=== PATIENT | female | born 1940 | race Caucasian/White ===

== ENCOUNTER 2024-06-21 18:17 | Inpatient (IN) | payer OTHER, SELFPAY ==
[2024-06-21] VITALS (7 sets, daily range): BP systolic 125–182; BP diastolic 43–94; BMI 17.6; BMI 17.1
--- NOTE | 2024-06-21 16:27 | ED.GENMED ---
History of Present Illness
General
Chief Complaint: Wound Check/Suture Removal
Source: patient and family
Exam Limitations: none
Time Seen by Provider: 06/21/24 15:40
Nursing documentation reviewed up to this point in time: agreed with
History of Present Illness
History of Present Illness:
84-year-old female with history as documented presents to the emergency room from her independent living facility; she is accompanied by her daughters, sent in for evaluation of worsening pain in her buttock noted to have significant sacral wound.
Patient reports that she has issues with arthritis in her right hip and is scheduled for a right hip replacement. She says that this is caused significant pain with ambulation and so the for the past few months she has been sitting for most of the
day in the chair. She says that recently she has been having increasing severe pain with sitting down and particularly with lying down; apparently a nurse visited and noted that she had significant sacral wound with drainage and foul odor and she
was referred to the emergency room. In addition to worsening sacral pain she also reports drainage and discharge from the area. She reports generalized fatigue. She denies any fevers or chills. She denies any falls or trauma. She denies any
other complaints.
Review of Systems
Review of Systems
All Other Systems: ROS reviewed and negative except as documented in HPI and ROS
Constitutional: Reports fatigue; Denies fever or chills
Respiratory: Denies trouble breathing
Cardiac: Denies chest pain
ABD/GI: Denies abdominal pain
: Denies flank pain
Skin: Reports other (Draining malodorous sacral wound)
Neurological: Denies headache
Phy Exam
Physical Exam
Physical Exam:
General: Awake, alert, oriented x3; frail appearing
Head: Normocephalic, atraumatic
Eyes: Conjunctiva normal
Throat: Airway intact
Neck: Trachea midline
Lungs: Clear to auscultation bilaterally, no wheezing, rales, rhonchi
Heart: Regular rate and rhythm, no murmurs, gallops, or rubs
Abd: Soft, non distended, nontender
Skin: Patient has stage IV sacral decubitus ulcer with foul odor and scant drainage
Extremities: Bilateral lower extremity edema; extremities warm and well-perfused
Scores
Heart Failure Risk
Heart Failure Risk Score: Not Applicable
Heart Score for Chest Pain Patients
STEMI patient?: Not applicable
Withdrawal Assessment of Alcohol
Withdrawal Assessment Completed?: Not applicable
Course
Orders/Labs/Results
Orders:
Orders
06/21/24 16:16
Complete Blood Count/With Diff Urgent
Comprehensive Metabolic Panel Urgent
Magnesium Urgent
Phos [Phosphorus] Urgent
Blood Culture Routine
SHALONDA Source: Blood/Venous
Specimen Description:
06/21/24 16:17
Lactate Level [Lactic Acid] Urgent
06/21/24 16:26
Wound Culture [Wound/Abscess/Other Culture] Urgent
SHALONDA Source: Sacral
Specimen Description:
06/21/24 16:30
Electrocardiogram (*1) Urgent
Reason for Study: Vertigo / Dizzy
EKG- Treatment ONCE
06/21/24 16:31
CR Sacrum/coccyx Min 2 View Urgent
Comment:
Reason For Exam: sacral wound
06/21/24 17:04
Magnesium Sulfate 4 Gram/100Ml [Magnesium Sulfate] 4 gram in 100 ml IV NOW
Potassium Chloride [KCl] 40 meq 0.9% Sodium Chloride 250 ml [Nss] 250 ml IV NOW
06/21/24 17:15
Cefepime HCl [Maxipime] 1,000 mg IV NOW STA
MetroNIDAZOLE IVPB 500 mg IVPB NOW MetroNIDAZOLE 500 MG/100 ML [Flagyl 500 mg] 100 ml IV NOW
Vancomycin 1000 mg IVPB NOW Vancomycin 1 Gram/200 ml [Vancocin] 1 gram in 200 ml IV NOW
Abnormal Lab Results
06/21/24 06/21/24
16:16 16:17
WBC 13.9 H 10^3/uL
(4.8-10.8)
RBC 3.37 L 10^6/uL
(4.20-5.40)
Hgb 9.6 L g/dL
(12.0-16.0)
Hct 29.1 L %
(37.0-47.0)
RDW 15.2 H %
(11.5-14.5)
Plt Count 673 H 10^3/uL
(130-400)
Abs Immat Gran (auto) 0.1 H 10^3/uL
(0-0.05)
Absolute Neuts (auto) 12.3 H 10^3/uL
(1.4-6.5)
Absolute Lymphs (auto) 0.7 L 10^3/uL
(1.2-3.4)
Absolute Monos (auto) 0.7 H 10^3/uL
(0.1-0.6)
Immature Gran % 0.9 H %
(0-0.5)
Neutrophils % 88.2 H %
(42.2-75.2)
Lymphocytes % 5.2 L %
(20.5-51.1)
Potassium 3.3 L mmol/L
(3.5-5.1)
Chloride 96 L mmol/L
(98-107)
BUN 20 H mg/dl
(7-17)
Glucose 107 H mg/dl
(70-99)
Lactic Acid 3.0 H mmol/L
(0.7-2.0)
Magnesium 1.5 L mg/dl
(1.6-2.3)
06/21/24 16:16
06/21/24 16:16
Vital Signs
Initial and Last Documented VS:
Initial Vital Signs
Pulse Resp BP Pulse Ox
92 18 125/57 97
06/21/24 14:52 06/21/24 14:52 06/21/24 14:52 06/21/24 14:52
Last Documented Vital Signs
Temp Pulse Resp BP Pulse Ox
36.6 C 68 17 177/43 97
06/21/24 14:55 06/21/24 16:45 06/21/24 16:45 06/21/24 16:12 06/21/24 16:14
MDM/Problems Addressed
Differential Diagnosis Includes:
Sacral wound infection, osteomyelitis
MDM/Problems Addressed:
84-year-old female presents with worsening sacral pain, malodorous draining sacral wound. Vital signs normal. Exam as above. Will send labs including a CBC and a CMP, blood culture; will send a wound culture. Check x-ray of the sacrum. Pending
initial workup will plan for admission for wound care and antibiotic treatment with concern for infected sacral wound.
Labs reviewed: CBC shows leukocytosis to 13.9, anemia 9.6. Thrombocytosis with a platelet count of 673 possibly acute phase reactant. She has mild hypokalemia and hypomagnesemia which were repleted IV. Lactate was slightly elevated at 3.0 we will
trend pending fluids. Plan to treat with IV antibiotics and admit for infected sacral wound; patient is allergic to penicillin discussed with infectious disease will treat with vancomycin, cefepime, metronidazole start. Wound culture sent off.
Case discussed with hospitalist for admission.
*Pulse Oximetry
Patient hypoxic: no
*Critical Care Note
Total Time (30-74mins, 75-104mins- exclusive of procedures): Not Applicable
Data Reviewed
Source: patient, records and family
Patient Management
Discussion with other providers: Hospitalist (Discussed with hospitalist) and Implant Coordinator (Discussed with infectious disease)
Escalation/DeEscalation of care consider admission/obs:
Admission indicated
ED Attending Note
-
Portions of this chart may have been created with voice recognition software.� Occasional wrong word or��sound alike� substitutions may have occurred due to the inherent limitations of voice recognition software.
Discharge Plan
Departure
Patient Disposition: Admit
Date of Disposition: 06/21/24
Time of Disposition: 17:17
Admit to doctor: Alvaro
Presentation/result/management discussed w/ accepting MD/DO: Hospitalist
Discharge Problem:
Decubitus ulcer, stage 4 with infection
Referrals:
Gala Sharif NP [Family Provider] -
Interventions
Interventions:
*Risk Screen - Suicide Last Done: 06/21/24 14:52
*General Assessment Last Done: 06/21/24 14:52
*Neglect/Abuse Screening Last Done: 06/21/24 14:52
*ED COVID-19 Vaccine History Last Done: 06/21/24 14:52
ED-Skin Assessment Last Done: 06/21/24 16:23
Discharge Date and Time
Print Language: YI
[2024-06-21 16:29] LABS: % Basophils 0.3 % (0-2); % Eosinophils 0.3 % (0-6); % Immature Granulocytes 0.9 % (0-0.5); % Lymphocytes 5.2 % (20.5-51.1); % Monocytes 5.1 % (1.7-9.3); % Neutrophils 88.2 % (42.2-75.2); Absolute Immature Granulocytes 0.1 10^3/uL (0-0.05); Absolute Lymphocytes 0.7 10^3/uL (1.2-3.4); Absolute Monocytes 0.7 10^3/uL (0.1-0.6); Absolute Neutrophils 12.3 10^3/uL (1.4-6.5); Hematocrit 29.1 % (37.0-47.0); Hemoglobin 9.6 g/dL (12.0-16.0); Mean Corpuscular Hgb 28.5 pg (27.0-31.0); Mean Corpuscular Volume 86.4 fL (81.0-99.0); Nucleated Red Blood Cells % 0 %; Red Blood Cell Count 3.37 10^6/uL (4.20-5.40); Red Cell Dist. Width 15.2 % (11.5-14.5); White Blood Cell Count 13.9 10^3/uL (4.8-10.8)
[2024-06-21 16:39] LABS: Platelet Count 673 10^3/uL (130-400)
[2024-06-21 16:58] LABS: ALT (SGPT) 19 U/L (0-35); AST (SGOT) 31 U/L (14-36); Albumin 3.9 g/dl (3.5-5.0); Alkaline Phosphatase 124 U/L (38-126); Blood Urea Nitrogen 20 mg/dl (7-17); Calcium 9.4 mg/dl (8.4-10.2); Carbon Dioxide 29 mmol/L (22-30); Chloride 96 mmol/L (98-107); Estimated Creatinine Clearance 50 ml/min; Glucose 107 mg/dl (70-99); Magnesium 1.5 mg/dl (1.6-2.3); Phosphorus 3.2 mg/dl (2.5-4.5); Potassium 3.3 mmol/L (3.5-5.1); Sodium 135 mmol/L (135-145); Total Bilirubin 0.4 mg/dl (0.2-1.3); Total Protein 6.4 g/dl (6.3-8.2); eGFR > 60.00
--- NOTE | 2024-06-21 17:27 | HPS.HSE ---
Addendum entered and electronically signed by Pavan Santana MD 06/21/24 18:16:
I saw and examined the patient.
The RETAIL SERVICE SPECIALIST or PA's note was reviewed and I agree with the note.
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 Also complaining of lower lumbar back pain for the past few
weeks. Has been having issues with her hip and planning on right hip replacement August. Therefore, has been sitting more than laying down due to hip pain. Patient found to have sacral wound with drainage and foul-smelling odor. Otherwise
associated generalized fatigue. Noted to be hypertensive, pulse 68, respiratory rate 17, 97.8 labs remarkable for white count 13.9, platelets 673, potassium 3.3, lactate 3. Plan�await hip x-rays, ESR, CRP. Electrolyte repletion including
magnesium and potassium, Continue IV fluids, trend lactate. Start vancomycin, cefepime, Flagyl. Follow-up blood cultures. Wound care. Pain control. Add on IV hydralazine for SBP greater than 180, diastolic greater than 110. ID already
consulted.
Original Note:
Family Physician
-
Family Physician: Gala Sharif NP
Chief Complaint
-
Sacral wound
History of Present Illness
84-year-old female with PMH for colon ca presented to us with sacral wound. daughter noticed foul smell last week. she is complaining of tail bone pain for past few weeks. Patient reports that she has issues with arthritis in her right hip and is
scheduled for a right hip replacement in August. She says that this is caused significant pain with ambulation and so the for the past few months she has been sitting for most of the day in the chair. She says that recently she has been having
increasing severe pain with sitting down and laying down. the Nurse from [facility] were called in to check her wound and noted to have significant sacral wound with drainage and foul odor and she was referred to the emergency room. She
reports generalized fatigue. She denies any fevers or chills. She denies any falls. patient denied MONREAL, dizzy or syncopal episode. denied chest pain, sob. denied abdominal pain,n,v,d. denied dysuria or hematuria. she is on Cipro for UTI.
In ER patient received Vanco, cefepime and Flagyl. Admitting for further management
Medical History
Past Medical History
Past Medical History: Reports None and Other
Additional Past Medical History:
Colon cancer
Past Surgical History: Reports Other
Additional Past Surgical History:
Colon resection
Social History
Tobacco: Non-smoker
Alcohol: Occasional
Drug: None
Personal: Single
Living: Alone
Family History
Family History: Not pertinent
Allergies / Home Medications
Allergies reflects when Allergies were last updated in [employer].
Home Medications with original date entered in [employer]
Allergy/Medication List:
Allergies
Allergy/AdvReac Type Severity Reaction Status Date / Time
Penicillins Allergy Rash Verified 06/21/24 14:52
Home Medications
acetaminophen 500 mg tablet (Tylenol Extra Strength) 1,000 mg PO Q6HPRN PRN mild pain 06/21/24
ciprofloxacin HCl 500 mg tablet 500 mg PO BID 06/21/24
loperamide 2 mg capsule 4 mg PO QIDPRN PRN diarrhea 06/21/24
therapeutic multivitamin 1 tab PO DAILY 06/21/24
Review of Systems
-
Constitutional: Reports No Symptoms
EENT: Reports No Symptoms
Respiratory: Reports No Symptoms
Cardiac: Reports No Symptoms
Abdomen/GI: Reports No Symptoms
: Reports No Symptoms
Musculoskeletal: Reports No Symptoms
Skin: Reports Other (sacral wound)
Neurological: Reports No Symptoms
Endocrine: Reports No Symptoms
Hematologic/Lymphatic: Reports No Symptoms
Psych: Reports No Symptoms
Physical Exam
Vital Signs
Vital Signs
Temp Pulse Resp BP Pulse Ox
97.8 F 68 17 177/43 97
06/21/24 14:55 06/21/24 16:45 06/21/24 16:45 06/21/24 16:12 06/21/24 16:14
Physical Exam
General: Well Developed, Well Nourished and No Apparent Distress
HEENT: NormoCephalic, Moist mucous membranes and Atraumatic
Respiratory: Clear
Cardiac: S1/S2 and Regular Rhythm; No Murmur or Rub
GI: Soft, Non Tender, Non Distended and Normal Bowel Sounds; No Organomegaly
Rectal: Deferred by Provider
Musculoskeletal: No Clubbing, No Cyanosis and No Edema
Skin: Rash and Other (sacral wound)
Neuro: AO x 3 and Nonfocal/grossly intact
Psych: Calm
Laboratory Results
-
06/21/24 16:16
06/21/24 16:16
Laboratory Results
Lactic Acid 3.0 mmol/L (0.7-2.0) H 06/21/24 16:17
Total Bilirubin 0.4 mg/dl (0.2-1.3) 06/21/24 16:16
AST 31 U/L (14-36) 06/21/24 16:16
ALT 19 U/L (0-35) 06/21/24 16:16
Alkaline Phosphatase 124 U/L (38-126) 06/21/24 16:16
Data Reviewed
-
Lab Data: Labs Reviewed by me
Impression/Plan
-
# Infected sacral wound
# severe Sepsis as evident by WBC 13.9, lactic 3.0
-Continue to current WBCs, trend lactic
-Continue IV Vanco, cefepime and Flagyl
-Infectious disease consulted
-Tylenol as needed for fever or pain
-Wound care consulted
-X-ray of sacrum/coccyx pending
-Wound culture and blood culture sent from ER
-Tylenol continued
-obtain ESR and CRP
# Anemia likely chronic
-Hemoglobin 9.6
-Continue to monitor
# Hypokalemia/hypomag
-K3.3, magnesium 1.5
-IV mag and IV potassium in ER
#hypertension likely from pain
-hydralazine added for SBp>140
# History of colon cancer
-Status post colon resection
#DVT prophylaxis
-Lovenox
#CODE status
-full code
[2024-06-21] MEDS: MAXIPIME 1000 MG IV (17:42)
[2024-06-21] MEDS: FLAGYL 500 MG 100 IV (17:43)
[2024-06-21] MEDS: VANCOCIN 200 IV (18:03)
--- NOTE | 2024-06-21 19:22 | W.PN.UPDATE ---
Update Note
Progress Note Update
patient is DNR
[2024-06-21] MEDS: LR 1000 IV (20:34)
[2024-06-21] MEDS: APRESOLINE 10 MG IV (20:34)
[2024-06-21] MEDS: TYLENOL 650 MG PO (20:34)
[2024-06-21] MEDS: LOVENOX 40 MG SC (20:35)
--- NOTE | 2024-06-21 20:51 | PHA.VAN.IN ---
Assessment
- Assessment
Renal Function: Unknown baseline
Concomitant Antimicrobials: CEFEPIME
- Previous Dosing Experience
Previous Regimen: NONE
AUC Dosing Plan
- Dosing Variables
Dosing Weight (kg): 54.7
Dosing CrCl (ml/min): 59
Vd coefficient (L/kg): 0.7
- Empiric Dosing
Initial / Loading Dose: 1GM
Maintenance Regimen: 1GM IV Q24H
Estimated AUC (mcg*h/mL): 502
Estimated Peak (mcg*h/mL): 36.2
Estimated Trough (mcg/ml): 10.6
Estimated Half Life (H): 13
Pharmacokinetics Vancomycin I
- -
Patient Age: 84
Patient Sex: Female
Vancomycin Day #: 1
Indication: Skin And Soft Tissue (SACRAL WOUND/SEPSIS)
Requesting Provider: BOBBY
Height / Weight:
Height 5 ft 4 in
Actual Weight 45.132 kg
IBW in k.7
Pertinent Past Medical History: HX COLON CA
- Vital Signs / Lab Results
Temp Pulse Resp BP Pulse Ox
98.1 F 85 18 182/72 99
06/21/24 20:24 06/21/24 20:34 06/21/24 20:24 06/21/24 20:34 06/21/24 20:24
Lab Results - Hematology
06/21/24
16:16
WBC 13.9 H
Lab Results - Chemistry
06/21/24
16:16
BUN 20 H
Creatinine 0.6
Estimated Creat Clear 50
Albumin 3.9
06/21/24
16:17
Lactic Acid 3.0 H
Microbiology Results
06/21/24 17:42 Gram Stain - Preliminary
Sacral
[2024-06-21] MEDS: MAGNESIUM SULFATE 100 IV (21:32)
[2024-06-21] MEDS: KCL 270 MEQ IV (21:35)
--- NOTE | 2024-06-21 22:10 | PTCARENOTE ---
Addendum entered by Evelia Carlson RN 06/21/24 22:15:
Sacral wound is Stage IV not 3
Original Note:
rec'd pt from ER. Walked from stretcher to bed utilizing a rolling walker with assist times 1. Daughter at the bedside. Pt with stage 3 wound to sacrum that pt states is from not being able to move much due to right hip pain. she is supposed to have
hip replacement in august. LR infusing at 80ml/hr. Potassium and Magnesium ordered IV. Pt's daughter updated on all orders. Tylenol given for right hip pain.
[2024-06-21 22:32] LABS: Erythrocyte Sed Rate 59 mm/hour (0-20)
[2024-06-22 00:08] LABS: Lactic Acid 1.4 mmol/L (0.7-2.0)
[2024-06-22] MEDS: TYLENOL 650 MG PO ×4 (02:19→20:27)
[2024-06-22] MEDS: FLAGYL 500 MG 100 IV ×3 (02:19→17:24)
[2024-06-22] MEDS: MAXIPIME 2000 MG IV ×2 (05:46→17:23)
[2024-06-22] MEDS: STERILE WATER FOR INJECTION 10 ML IV ×2 (05:46→17:23)
[2024-06-22] MEDS: VANCOCIN 200 IV (06:14)
[2024-06-22 06:27] LABS: Hematocrit 25.5 % (37.0-47.0); Hemoglobin 8.4 g/dL (12.0-16.0); Mean Corp Hgb Conc. 32.9 g/dL (33.0-37.0); Mean Corpuscular Hgb 28.3 pg (27.0-31.0); Mean Corpuscular Volume 85.9 fL (81.0-99.0); Mean Platelet Volume 8.4 fL (7.4-10.4); Platelet Count 588 10^3/uL (130-400); Red Blood Cell Count 2.97 10^6/uL (4.20-5.40); Red Cell Dist. Width 15.2 % (11.5-14.5); White Blood Cell Count 10.9 10^3/uL (4.8-10.8)
[2024-06-22 06:43] LABS: Blood Urea Nitrogen 16 mg/dl (7-17); Calcium 8.7 mg/dl (8.4-10.2); Carbon Dioxide 30 mmol/L (22-30); Chloride 100 mmol/L (98-107); Estimated Creatinine Clearance 49 ml/min; Glucose 82 mg/dl (70-99); Potassium 3.5 mmol/L (3.5-5.1); Sodium 135 mmol/L (135-145); eGFR > 60.00
[2024-06-22 07:00] VITALS: BP 158/64
[2024-06-22] MEDS: LR IV (08:03)
--- NOTE | 2024-06-22 09:13 | WOUNDNOTE ---
COCCYX (probes to bone)
--- NOTE | 2024-06-22 09:13 | WOUNDNOTE ---
COCCYX (probes to bone)
--- NOTE | 2024-06-22 09:27 | WOUNDNOTE ---
[facility] RN note: Patient admitted with infected sacral/coccyx ulcer. Patient lives in independent living at [facility]. She was going to nursing office for her wound care.
See H&P for complete history.
PMH: colon ca with radiation to pelvic bone, R hip replacement planned 08/2024.
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 Skin scarred, red diffusely around wound with some indurated skin mostly on R side of wound.
Appetite: fair. She drinks 1-2 ensure drinks a day (prefers chocolate).
Pressure redistribution devices in place: Air overlay mattress. She turns self in bed and favors lying on her R side.
Plan: Coccyx dressing changed. Heels off bed with pillow. Air chair cushion given. Instructed patient to let her orthopedic surgeon know about her coccyx wound to bone. Instructed patient proper positioning to stay directly off sacrum and hip with
30 degree turn positioning and heel elevation. Suggested she consider hospital bed with air mattress. She stated she may be going to SNF when discharged. Suggested she discuss with CM.
Updated and confirm orders with Dr. Santana including coccyx to bone and that with the history of XRT, wound may not heal.
Care plan to be updated, will update FOSTER Vo. Will follow as needed.
Note to case management of equipment requested for discharge: hospital bed with air mattress recommended as she spends most of the time lying on her side in bed.
Recommend follow up at wound care center upon discharge.
--- NOTE | 2024-06-22 09:30 | WOUNDNOTE ---
[facility] RN note: Patient admitted with infected sacral/coccyx ulcer. Patient lives in independent living at [facility]. She was going to nursing office for her wound care.
See H&P for complete history.
PMH: colon ca with radiation to pelvic bone, R hip replacement planned 08/2024.
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 Skin scarred, red diffusely around wound with some indurated skin mostly on R side of wound.
Appetite: fair. She drinks 1-2 ensure drinks a day (prefers chocolate).
Pressure redistribution devices in place: Air overlay mattress. She turns self in bed and favors lying on her L side.
Plan: Coccyx dressing changed. Heels off bed with pillow. Air chair cushion given. Instructed patient to let her orthopedic surgeon know about her coccyx wound to bone. Instructed patient proper positioning to stay directly off sacrum and hip with
30 degree turn positioning and heel elevation. Suggested she consider hospital bed with air mattress. She stated she may be going to SNF when discharged. Suggested she discuss with CM.
Updated and confirm orders with Dr. Santana including coccyx to bone and that with the history of XRT, wound may not heal.
Care plan to be updated, will update FOSTER Vo. Will follow as needed.
Note to case management of equipment requested for discharge: hospital bed with air mattress recommended as she spends most of the time lying on her side in bed.
Recommend follow up at wound care center upon discharge.
--- NOTE | 2024-06-22 10:10 | CON.ID ---
Consultation
-
Date/Time Consultation Requested: June 21, 2024 1718
Date/Time Consultation Performed: June 22, 2024 1015
Requesting Provider: Dr. Tuan Sarkar Jr
Performing Provider: Dr. Chyna Marte
Reason for Consultation: Sacral-coccyx wound
Chief Complaint / Past History
Chief Complaint
Coccyx pain with drainage
History of Present Illness
84-year-old female with remote history of colon cancer status post resection and radiation to pelvic bone in 2001 who presented to the ER June 21 due to draining coccyx wound. She states that her tailbone had never been normal since radiation.
However she was doing well until around February when she started having difficulty walking due to osteoarthritis of the right hip. She is actually scheduled for right hip replacement in August. She has been sitting in a mobile frequently. About a
week ago she noted increasing tailbone pain. She did see her physician who prescribed Cipro for presumed UTI. The urine culture resulted as negative. Patient had 2 doses of the Cipro. In the meantime her daughter noted foul-smelling discharge
from the coccyx wound. She was therefore sent to the ER. No fevers or chills. Her white count was 13.9. X-ray shows no osteomyelitis. She was seen by wound care nurse today who noted wound probes deep to to bone. She be going for MRI today.
Past History
Additional Past Medical History:
Colon cancer status post resection and radiation (2001)
Osteoarthritis of right hip
IBS
Allergy History:
Penicillins Allergy (Verified 06/21/24 14:52)
Rash at age 29's
Medications Reviewed: Yes
Current Antibiotics:
Cefepime
Metronidazole
Vancomycin
Social History
Tobacco: Non-Smoker
Alcohol: Occasional
Drug: None
Living: Alone (Independent living facility)
Family History
Family History: Not Pertinent
Review of Systems
Review of Systems
General: Negative Fever, Chills or Change in Appetite
HEENT: Negative Sinus Problems, Headache or Pharyngitis
Cardiovascular: Negative Chest Pain
Respiratory: Negative Dyspnea or Cough
Gasteroenterology: Other; Negative Nausea or Vomiting
Genital / Urological: Negative Dysuria or Flank Pain
Endocrine: Negative Weakness
Neurological: Negative Headache
All systems: All other systems were reviewed and were negative
Vital Signs
Temp Pulse Resp BP Pulse Ox
97.6 F 94 18 158/64 92
06/22/24 07:00 06/22/24 07:00 06/22/24 07:00 06/22/24 07:00 06/22/24 07:00
Physical Exam
Physical Exam
Constitutional: No Acute Distress and Comfortable
Eyes: No Conjunctival Hemorrhage and Sclera Anicteric
Cardiovascular: Regular Rate and S1/S2
Pulmonary: Clear
Gastrointestinal: Soft, Non Tender, Non Distended and Normal Bowel Sounds
Genito-Urinary: Negative CVA Tenderness
Extremities: Negative Edema
Wound: Other (Reviewed today wound photo: coccyx with scarred tissue, + wound opening probes to bone per Wound nurse, + yellowish tissue)
Neurological: AO x 3
Lab / Diagnostic Study Results
06/22/24 05:25
06/22/24 05:25
Abs Immat Gran (auto) 0.1 10^3/uL (0-0.05) H 06/21/24 16:16
Absolute Neuts (auto) 12.3 10^3/uL (1.4-6.5) H 06/21/24 16:16
Absolute Lymphs (auto) 0.7 10^3/uL (1.2-3.4) L 06/21/24 16:16
Absolute Monos (auto) 0.7 10^3/uL (0.1-0.6) H 06/21/24 16:16
Absolute Basos (auto) 0.0 10^3/uL (0-0.2) 06/21/24 16:16
Immature Gran % 0.9 % (0-0.5) H 06/21/24 16:16
Neutrophils % 88.2 % (42.2-75.2) H 06/21/24 16:16
Lymphocytes % 5.2 % (20.5-51.1) L 06/21/24 16:16
Monocytes % 5.1 % (1.7-9.3) 06/21/24 16:16
Eosinophils % 0.3 % (0-6) 06/21/24 16:16
Basophils % 0.3 % (0-2) 06/21/24 16:16
ESR Cancelled 06/21/24 21:45
Lactic Acid Cancelled 06/22/24 04:00
Microbiology Results
Micro:
06/21/24 17:42 Wound Culture - Pending
Sacral Gram Stain - Preliminary
06/21/24 16:16 Blood Culture - Pending
Blood/Venous
06/21/24 Sacrum/coccyx XRAY: On the lateral view, air density adjacent to the inferior tip of the coccyx, suggesting an adjacent wound. No gross evidence for bony destruction. Compression deformity of the L5 vertebral body, age uncertain with no
comparison examination available. Please correlate clinically.
Assessment / Plan
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
# PCN allergy
- MRI coccyx pending
- Wound swab gram stain GPC, GNR; cx pending
- Currently on Vanco/cefepime/metronidazole
- Discussed with patient that 6 weeks of IV abx is beneficial ONLY IF there is plan for wound closure/flap in her case.
Care Review
Plan reviewed with: Nurse (FOSTER Chopra)
--- NOTE | 2024-06-22 11:24 | PHA.VAN.FU ---
Addendum entered and electronically signed by Anna Matos RPH 06/22/24 12:31:
Consult reviewed with instructor adjunct pharmacy technician. Agree with assessment and plan below and utilizing more conservative CrCl estimate for dosing.
Original Note:
Vancomycin Assessment / Plan
- Assessment
Renal Function: Stable
WBC's are: Trending Down
In the past 24 hrs, patient has been: Afebrile
Concomitant Antimicrobials: CEFEPIME, METRONIDAZOLE
- Dosing Plan
Adjust Regimen to: 750mg Q24H Starting 06/23/24 0600
New Regimen Predicts: AUC (442), Peak (29.5), Trough (10.5)
Dosing Comments: IBW for dosing weight; TBW for CrCl
- Monitoring Plan
No level(s) ordered at this time: consider in the next few days
- Follow Up
Pharmacy will continue to follow.
Vancomycin Follow UP
- -
Patient Age: 84
Patient Sex: Female
Vancomycin Day #: 2
Indication: Skin And Soft Tissue
Requesting Provider: S BOBBY
Pertinent Antimicrobial Allergies:
Penicillins - Rash in her 30s
Height / Weight:
Height 5 ft 4 in
Actual Weight 45.132 kg
IBW in k.7
Pertinent Past Medical History: BMI ~17
- Vital Signs / Lab Results
Temp Pulse Resp BP Pulse Ox
97.6 F 94 18 158/64 92
06/22/24 07:00 06/22/24 07:00 06/22/24 07:00 06/22/24 07:00 06/22/24 07:00
Lab Results - Hematology
06/21/24 06/22/24
16:16 05:25
WBC 13.9 H 10.9 H
Lab Results - Chemistry
06/21/24 06/22/24
16:16 05:25
BUN 20 H 16
Creatinine 0.6 0.5 L
Estimated Creat Clear 50 49
Albumin 3.9
06/21/24 06/21/24 06/22/24
16:17 23:50 00:00
Lactic Acid 3.0 H 1.4 Cancelled
06/22/24
04:00
Lactic Acid Cancelled
Microbiology Results
06/21/24 17:42 Gram Stain - Preliminary
Sacral
[2024-06-22 11:25] VITALS: BMI 17.1
[2024-06-22 11:29] VITALS: BP 146/96; O2SAT 97
--- NOTE | 2024-06-22 12:27 | CM ---
Patient seen bedside with daughter, Arlene, initial assessment completed. Patient resides at [facility]. Patient has a rolling walker for ambulation, wheel chair if needed for long distances. Patient denies VN or SNF.
Patient PCP Jolie ALICIA) through [place], pharmacy [facility], confirms prescription coverage. Patient denies food, housing/utility, transportation insecurities. PT to see patient, will watch for SNF recommendations, would like
[facility] ([facility]) if necessary. Wound care recommending hospital bed with air mattress upon discharge. CM will continue to follow for all discharge planning needs.
Plan; watch PT evals for further recommendation, watch for IV antibiotic needs.
--- NOTE | 2024-06-22 14:19 | W.PN.HOSP.TC ---
Today's Communication/Plan
-
MR coccyx
Abx
F/u cultures
Assessment / Plan
Assessment / Plan
Constitutional: No Acute Distress and Comfortable
Eyes: No Conjunctival Hemorrhage and Sclera Anicteric
Cardiovascular: Regular Rate and S1/S2
Pulmonary: Clear
Gastrointestinal: Soft, Non Tender, Non Distended and Normal Bowel Sounds
Genito-Urinary: Negative CVA Tenderness
Extremities: Negative Edema
Wound: Other (Reviewed today wound photo: coccyx with scarred tissue, + wound opening probes to bone per Wound nurse, + yellowish tissue)
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
# severe Sepsis
-Continue IV Vanco, cefepime and Flagyl
-Infectious disease consulted
-Tylenol as needed for fever or pain
-Wound care consulted
-MR Coccyx
- Wound swab gram stain GPC, GNR; cx pending
# Anemia likely chronic
-Continue to monitor
# Hypokalemia/hypomagnesemia
-K3.3, magnesium 1.5
-monitor and replete
#hypertension likely from pain
-hydralazine added for SBp>140
# History of colon cancer
-Status post colon resection
#DVT prophylaxis
-Lovenox
#CODE status
-full code
Total time spent on today's encounter was 50 minutes which included time spent in counseling the patient/family regarding diagnosis and treatment plan as listed above, goals of care, and symptom management. Case was discussed with nursing staff,
specialists, and care coordinators/case management. All labs and imaging personally reviewed by me. Remainder the time spent in detailed review of previous records, lab data, imaging, and other medical provider documentation.
Anticipated Discharge: Within 24 hours
Subjective/Interval History
-
Date of Service: June 22, 2024
Sitting in bed
Objective Data
-
Labs:
Laboratory Results
06/22/24
05:25
WBC 10.9 H
Hgb 8.4 L
Hct 25.5 L
Plt Count 588 H
Sodium 135
Potassium 3.5
Chloride 100
Carbon Dioxide 30
BUN 16
Creatinine 0.5 L
Glucose 82
Calcium 8.7
Vital Signs:
Vital Signs
Temp Pulse Resp BP Pulse Ox
97.6 F 94 18 158/64 92
06/22/24 07:00 06/22/24 07:00 06/22/24 07:00 06/22/24 07:00 06/22/24 07:00
I&O
06/21/24 06/22/24 06/23/24
06:59 06:59 06:59
Intake Total 450 / 450
Balance 450 / 450
Review of Systems
-
History Source: Patient
All other systems: Not reviewed unless documented
Data Reviewed
-
Diagnostic Radiology: Image personally visualized and interpreted and Report Reviewed by me
Labs: Labs Reviewed by me
[2024-06-22 15:00] VITALS: BP 162/54
[2024-06-22] MEDS: LOVENOX 40 MG SC (17:23)
[2024-06-22] MEDS: LIDOCAINE 4% PATCH 1 PATCH TOPICAL (20:25)
[2024-06-22 23:48] VITALS: BP 166/57
[2024-06-23] VITALS (31 sets, daily range): BP systolic 92–183; BP diastolic 43–72
[2024-06-23] MEDS: FLAGYL 500 MG 100 IV ×3 (02:37→18:11)
[2024-06-23] MEDS: APRESOLINE 10 MG IV (03:51)
[2024-06-23] MEDS: LR 1000 IV ×3 (05:03→14:05)
[2024-06-23] MEDS: MAXIPIME 2000 MG IV (05:04)
[2024-06-23] MEDS: TYLENOL 650 MG PO ×3 (05:04→17:09)
[2024-06-23] MEDS: STERILE WATER FOR INJECTION 10 ML IV (05:04)
[2024-06-23] MEDS: VANCOCIN 150 IV (05:31)
[2024-06-23 08:39] LABS: Glucose - Point of Care 138 mg/dl (70-99)
[2024-06-23 09:11] LABS: ALT (SGPT) 16 U/L (0-35); AST (SGOT) 35 U/L (14-36); Alkaline Phosphatase 99 U/L (38-126); Blood Urea Nitrogen 26 mg/dl (7-17); Calcium 8.9 mg/dl (8.4-10.2); Carbon Dioxide 24 mmol/L (22-30); Chloride 99 mmol/L (98-107); Estimated Creatinine Clearance 49 ml/min; Glucose 129 mg/dl (70-99); Lactic Acid 2.8 mmol/L (0.7-2.0); Phosphorus 3.7 mg/dl (2.5-4.5); Potassium 3.7 mmol/L (3.5-5.1); Sodium 132 mmol/L (135-145); Total Bilirubin 0.6 mg/dl (0.2-1.3); Total Protein 5.2 g/dl (6.3-8.2); eGFR > 60.00
[2024-06-23 09:13] LABS: % Basophils 0.2 % (0-2); % Eosinophils 0.2 % (0-6); % Immature Granulocytes 1.1 % (0-0.5); % Lymphocytes 6.2 % (20.5-51.1); % Monocytes 4.2 % (1.7-9.3); % Neutrophils 88.1 % (42.2-75.2); Absolute Basophils 0.1 10^3/uL (0-0.2); Absolute Immature Granulocytes 0.2 10^3/uL (0-0.05); Absolute Lymphocytes 1.3 10^3/uL (1.2-3.4); Absolute Monocytes 0.9 10^3/uL (0.1-0.6); Absolute Neutrophils 17.7 10^3/uL (1.4-6.5); Hematocrit 25.2 % (37.0-47.0); Hemoglobin 8.5 g/dL (12.0-16.0); Mean Corp Hgb Conc. 33.7 g/dL (33.0-37.0); Mean Corpuscular Hgb 28.6 pg (27.0-31.0); Mean Corpuscular Volume 84.8 fL (81.0-99.0); Mean Platelet Volume 8.4 fL (7.4-10.4); Nucleated Red Blood Cells % 0 %; Platelet Count 620 10^3/uL (130-400); Red Blood Cell Count 2.97 10^6/uL (4.20-5.40); Red Cell Dist. Width 15.5 % (11.5-14.5); White Blood Cell Count 20.1 10^3/uL (4.8-10.8)
[2024-06-23 09:17] LABS: INR 1.14; PT 14.4 Sec (11.4-14.6)
[2024-06-23 09:18] LABS: APTT 30.2 Sec (23.4-35.0)
[2024-06-23 09:22] LABS: Troponin I 0.016 ng/ml
--- NOTE | 2024-06-23 10:12 | PTCARENOTE ---
Received patient after rapid response from 4th floor. Patient awake and alert [facility]. Patient oriented to room and plan of care. In no distress when she arrived, complaining of chronic pain on sacral area and right hip. Daughter at
bedside. Reviewing labs and new orders.
--- NOTE | 2024-06-23 10:18 | W.PN.ID1 ---
Addendum entered and electronically signed by Chyna Marte MD 06/23/24 15:28:
Diarrhea resolved. Had formed BM.
Cancelled C. diff order.
Original Note:
Date of Service
Date of Service: June 23, 2024
Today's Communication
Narrow abx's to ceftriaxone/metronidazole.'
Await MRI pelvis.
Check stool for C. diff.
Assessment / Plan
# Acute leukocytosis
# Diarrhea
- Check stool for C. diff
-Follow wbc
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
# PCN allergy
- MRI pelvis pending
-CRP <5.00,
- Wound swab gram stain GPC, GNR; cx Strep species
- Narrow Vanco/cefepime to ceftriaxone (d2 abx). Continue metronidazole (d2)
- Discussed with patient and daughter if +osteo by MRI, 6 weeks of IV abx is beneficial ONLY IF there is plan for wound closure/flap in her case.
- Will need follow-up with Wound Care and Plastics.
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
Colon cancer status post resection and radiation (2001)
Osteoarthritis of right hip, for eventual hip replacement
IBS
Chief Complaint
-: Leukocytosis and Other (sacral wound)
Subjective / Review of Systems
Transferred to IMU this am with near-syncope episode while in bathroom.
Pt felt weak since last night. + diarrhea over night.
Daughter at bedside.
Vital Signs / Physical Exam
Vital Signs
Vital Signs
Temp Pulse Resp BP Pulse Ox
97.9 F 69 24 92/57 95
06/23/24 09:29 06/23/24 08:45 06/23/24 08:45 06/23/24 08:45 06/23/24 08:45
Physical Exam
Constitutional: Comfortable
Eyes: Sclera Anicteric
Cardiovascular: Regular Rate and S1/S2
Pulmonary: Clear
Gastrointestinal: Soft, Non Tender, Non Distended and Normal Bowel Sounds
Genito-Urinary: Negative CVA Tenderness
Extremities: Negative Edema
Neurological: AO x 3
Objective Data
Lab Data
Lab Results
06/23/24 08:44
06/23/24 08:44
ESR Cancelled 06/21/24 21:45
PT 14.4 Sec (11.4-14.6) 06/23/24 08:44
INR 1.14 06/23/24 08:44
APTT 30.2 Sec (23.4-35.0) 06/23/24 08:44
Estimated Creat Clear 49 ml/min 06/23/24 08:44
Lactic Acid 2.8 mmol/L (0.7-2.0) H 06/23/24 08:44
Total Bilirubin 0.6 mg/dl (0.2-1.3) 06/23/24 08:44
AST 35 U/L (14-36) 06/23/24 08:44
ALT 16 U/L (0-35) 06/23/24 08:44
Alkaline Phosphatase 99 U/L (38-126) 06/23/24 08:44
Most recent labs reviewed.
Micro Results:
06/21/24 17:42 Wound Culture - Final
Sacral Streptococcus species
Gram Stain - Final
06/21/24 16:16 Blood Culture - Preliminary
Blood/Venous No Growth in 24 hours- Final report to follow
06/21/24 Sacrum/coccyx XRAY: On the lateral view, air density adjacent to the inferior tip of the coccyx, suggesting an adjacent wound. No gross evidence for bony destruction. Compression deformity of the L5 vertebral body, age uncertain with no
comparison examination available. Please correlate clinically.
[2024-06-23 11:23] LABS: C-Reactive Protein < 5.00 mg/L (0.0-10.00)
[2024-06-23 11:51] LABS: CRP, Highly Sensitive > 15.00 mg/L
--- NOTE | 2024-06-23 11:59 | PTCARENOTE ---
Patient had formed stool, notified hospitalist and stool for cdiff to be discontinued. Discussed PRN order for hydralazine for sbp >140. Verbally order to hold at this time. Lastly the Lactated ringer bolus decreased to 500ml.
[2024-06-23] MEDS: ROCEPHIN 2000 MG IV (13:27)
[2024-06-23] MEDS: STERILE WATER FOR INJECTION 20 ML IV (13:28)
--- NOTE | 2024-06-23 14:03 | PN.CDI ---
CDI
- -
CDI:
Physician Documentation Request
Admit Date: 06/21/24 18:17
Dear Doctor Max
Patient admitted with severe sepsis.
Recent sodium results:
Laboratory Tests
06/22/24 06/23/24
05:25 08:44
Sodium 135 132 L
Could you please provide a diagnosis that supports the above lab abnormality :
Hyponatremia
Abnormal lab value clinically insignificant
Other
Use of terms such as suspected, likely, concern for, or probable (associated with a specific diagnosis that is being evaluated, monitored, or treated as if it exists) are acceptable and can be coded in the inpatient setting, when documented at the
time of discharge.
Thank you,
Jackie Ortiz RN, BSN
CDI Specialist
tiger text
Please use your independent medical judgment in providing your response.
[2024-06-23] MEDS: TORADOL 15 MG IV ×2 (14:05→20:05)
--- NOTE | 2024-06-23 14:06 | PN.CDI ---
CDI
- -
CDI:
Physician Documentation Request
Admit Date: 06/21/24 18:17
Dear Doctor Max,
Please review the following and provide your response in the progress notes.
Clinical Indicators:
Height: 5 ft 4 inches
Weight: 102
BMI: 17.6
If possible, please provide an associated diagnosis related to the abnormal BMI, such as:
BMI < or = to 19
Underweight
Weight Loss
Cachectic
Anorexia
- BMI is not significant
- Other
Use of terms such as suspected, likely, concern for, or probable (associated with a specific diagnosis that is being evaluated, monitored, or treated as if it exists) are acceptable and can be coded in the inpatient setting, when documented at the
time of discharge.
Thank you,
Jackie Ortiz RN, BSN
CDI Specialist
tiger text
Please use your independent medical judgment in providing your response.
[2024-06-23] MEDS: FLUSH (NSS) 1 FLUSH IV ×2 (14:07→14:11)
--- NOTE | 2024-06-23 16:25 | W.PN.HOSP.TC ---
Addendum entered and electronically signed by Pavan Santana MD 06/23/24 16:49:
Underweight
Original Note:
Today's Communication/Plan
-
iv abx, f/u cultures
-monitor wbc, fever curve
ct head, cxr
s/p fluids - monitor BPs
trend trop
pain control
Assessment / Plan
Assessment / Plan
Constitutional: No Acute Distress and Comfortable
Eyes: No Conjunctival Hemorrhage and Sclera Anicteric
Cardiovascular: Regular Rate and S1/S2
Pulmonary: Clear
Gastrointestinal: Soft, Non Tender, Non Distended and Normal Bowel Sounds
Genito-Urinary: Negative CVA Tenderness
Extremities: Negative Edema
Wound: Other (Reviewed today wound photo: coccyx with scarred tissue, + wound opening probes to bone per Wound nurse, + yellowish tissue)
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
# severe Sepsis
-Continue IV Ceft, flagyl
-Infectious disease consulted
-Tylenol as needed for fever or pain
-Wound care consulted
-MR Coccyx - pos for osteo
- Wound swab gram stain GPC, GNR; cx pending
-trend cbc
-not having diarrhea
-Needs f/u with wound/plastics outpatient
#Syncopal episode
-most likely vasovagal with diarrhea
-trop trend
-no chest pain
-cont on tele
-bps responded well with Fluids
-ct head
#Hyponatremia
-mild
-ctm
#Hypoxia
-most likely atelectasis
-cxr
-post syncopal episode- -monitor for pneumonia
-incentive mendez
# Anemia likely chronic
-Continue to monitor
# Hypokalemia/hypomagnesemia
-K3.3, magnesium 1.5
-monitor and replete
#hypertension likely from pain
-hydralazine added for SBp>180
# History of colon cancer
-Status post colon resection
#DVT prophylaxis
-Lovenox
#CODE status
-DNR/DNI
Total time spent on today's encounter was 53 minutes which included time spent in counseling the patient/family regarding diagnosis and treatment plan as listed above, goals of care, and symptom management. Case was discussed with nursing staff,
specialists, and care coordinators/case management. All labs and imaging personally reviewed by me. Remainder the time spent in detailed review of previous records, lab data, imaging, and other medical provider documentation.
Anticipated Discharge: > 48 hours
Subjective/Interval History
-
Date of Service: June 23, 2024
syncopal episode with diarrhea this am - responded well with fluids
Objective Data
-
Labs:
Laboratory Results
06/23/24
08:44
WBC 20.1 H
Hgb 8.5 L
Hct 25.2 L
Plt Count 620 H
PT 14.4
INR 1.14
APTT 30.2
Sodium 132 L
Potassium 3.7
Chloride 99
Carbon Dioxide 24
BUN 26 H
Creatinine 0.6
Glucose 129 H
Calcium 8.9
Total Bilirubin 0.6
AST 35
ALT 16
Alkaline Phosphatase 99
Vital Signs:
Vital Signs
Temp Pulse Resp BP Pulse Ox
98.0 F 80 20 172/58 94
06/23/24 11:25 06/23/24 16:00 06/23/24 16:00 06/23/24 15:56 06/23/24 16:17
I&O
06/22/24 06/23/24 06/24/24
06:59 06:59 06:59
Intake Total 450 / 450 1440 / 1440 720 / 720
Balance 450 / 450 1440 / 1440 720 / 720
Review of Systems
-
History Source: Patient
All other systems: Not reviewed unless documented
Data Reviewed
-
Diagnostic Radiology: Image personally visualized and interpreted and Report Reviewed by me
Labs: Labs Reviewed by me
--- NOTE | 2024-06-23 16:37 | PTCARENOTE ---
Patients pulse ox 90% on room air today. Notified hospitalist. Pulse ox on 1 liter via nasal cannula is 95% at this time. Incentive spirometer performed 1500. Chest xray ordered. IVF discontinued. Right hip pain relieved with Tramadol.
[2024-06-23 17:29] LABS: Troponin I < 0.012 ng/ml
[2024-06-23] MEDS: LOVENOX 40 MG SC (18:10)
[2024-06-23 22:01] LABS: Lactic Acid 1.2 mmol/L (0.7-2.0)
[2024-06-23 22:13] LABS: Troponin I 0.013 ng/ml
[2024-06-24] VITALS (38 sets, daily range): BP systolic 127–189; BP diastolic 47–91
[2024-06-24] MEDS: FLAGYL 500 MG 100 IV ×2 (02:06→08:58)
[2024-06-24 02:39] LABS: Urine Albumin Trace (Neg - Trace); Urine Bilirubin Negative (Negative); Urine Character Slightly Cloudy (Clear); Urine Color Yellow; Urine Glucose Negative (Negative); Urine Ketone Trace (Negative); Urine Leukocyte 1+ (Negative); Urine Nitrite Positive (Negative); Urine Occult Blood Negative (Negative); Urine Urobilinogen Negative (Neg - 1+)
[2024-06-24 02:53] LABS: Urine Amorphous Seen; Urine Mucus Few; Urine Squamous Cell >30 /LPF (Few)
[2024-06-24 02:54] LABS: Urine White Cell 40-50 /HPF (0-5)
[2024-06-24 02:55] LABS: Urine Bacteria Many (Negative)
[2024-06-24 03:49] LABS: Hematocrit 22.4 % (37.0-47.0); Hemoglobin 7.5 g/dL (12.0-16.0); Mean Corp Hgb Conc. 33.5 g/dL (33.0-37.0); Mean Corpuscular Hgb 29.4 pg (27.0-31.0); Mean Corpuscular Volume 87.8 fL (81.0-99.0); Mean Platelet Volume 8.5 fL (7.4-10.4); Platelet Count 465 10^3/uL (130-400); Red Blood Cell Count 2.55 10^6/uL (4.20-5.40); Red Cell Dist. Width 15.5 % (11.5-14.5); White Blood Cell Count 10.7 10^3/uL (4.8-10.8)
[2024-06-24 04:00] LABS: Blood Urea Nitrogen 28 mg/dl (7-17); Calcium 8.3 mg/dl (8.4-10.2); Carbon Dioxide 25 mmol/L (22-30); Chloride 101 mmol/L (98-107); Estimated Creatinine Clearance 42 ml/min; Glucose 81 mg/dl (70-99); Potassium 3.3 mmol/L (3.5-5.1); Sodium 134 mmol/L (135-145); eGFR > 60.00
--- NOTE | 2024-06-24 05:33 | PTCARENOTE ---
Patient agitated with care at times. Retaining urine- only able to urinate 50- 75 at a time. Bladder scanned for 437. Straight cath with 410 dark yellow output. No syncopal episodes this shift.
--- NOTE | 2024-06-24 06:01 | W.PN.UPDATE ---
Update Note
Progress Note Update
RN notified PERENNIAL HOUSE MANAGER Hemoglobin of 7.5, hx of Anemia, no active bleeding, patient asymptomatic, stable VS. will order another H&H at 10Am
--- NOTE | 2024-06-24 06:35 | PTCARENOTE ---
Am hgb 7.5. technical product manager provider made aware and ordered repeat H&H for 1000.
[2024-06-24] MEDS: TORADOL 15 MG IV (08:57)
[2024-06-24] MEDS: TYLENOL 650 MG PO ×3 (09:01→20:28)
--- NOTE | 2024-06-24 10:01 | W.PN.ID1 ---
Date of Service
Date of Service: June 24, 2024
Today's Communication
- c/w ceftriaxone/metronidazole (d3 abx); switched metronidazole to oral - high bioavailability
Assessment / Plan
# Acute leukocytosis
# Diarrhea
- Check stool for C. diff
-Follow wbc
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
# PCN allergy
- MRI pelvis c/w osteomyelitis tip of the sacrum deep to the ulcer
- CRP <5.00,
- Wound swab gram stain GPC, GNR; cx Strep species
- c/w ceftriaxone/metronidazole (d3 abx); switched metronidazole to oral - high bioavailability
- Dr Marte discussed with patient and daughter if 6 weeks of IV abx is beneficial ONLY IF there is plan for wound closure/flap in her case
- Will need follow-up with Wound Care and Plastics.
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
Colon cancer status post resection and radiation (2001)
Osteoarthritis of right hip, for eventual hip replacement
IBS
Chief Complaint
-: Leukocytosis and Other (sacral wound)
Subjective / Review of Systems
afebrile
retaining urine and had straight cath
Vital Signs / Physical Exam
Vital Signs
Vital Signs
Temp Pulse Resp BP Pulse Ox
98.1 F 58 10 157/61 99
06/24/24 06:55 06/24/24 06:30 06/24/24 06:30 06/24/24 06:30 06/24/24 06:30
Physical Exam
Constitutional: No Acute Distress and Chronically Ill
Cardiovascular: Regular Rate and S1/S2; Negative Murmur or Rub
Pulmonary: Clear and Symmetric; Negative Wheezes or Rales
Gastrointestinal: Soft, Non Tender, Non Distended and Normal Bowel Sounds
Skin: Warm and Dry; Negative Rash or Jaundice
Objective Data
Lab Data
Lab Results
06/24/24 03:32
ESR Cancelled 06/21/24 21:45
PT 14.4 Sec (11.4-14.6) 06/23/24 08:44
INR 1.14 06/23/24 08:44
APTT 30.2 Sec (23.4-35.0) 06/23/24 08:44
Estimated Creat Clear 42 ml/min 06/24/24 03:32
Lactic Acid 1.2 mmol/L (0.7-2.0) 06/23/24 21:43
Total Bilirubin 0.6 mg/dl (0.2-1.3) 06/23/24 08:44
AST 35 U/L (14-36) 06/23/24 08:44
ALT 16 U/L (0-35) 06/23/24 08:44
Alkaline Phosphatase 99 U/L (38-126) 06/23/24 08:44
C-Reactive Protein < 5.00 mg/L (0.0-10.00) 06/23/24 08:44
Most recent labs reviewed.
Micro Results:
06/24/24 02:27 Urine Culture - Pending
Urine
06/21/24 16:16 Blood Culture - Preliminary
Blood/Venous No Growth in 48 hours- Final report to follow
06/21/24 17:42 Wound Culture - Final
Sacral Streptococcus species
Gram Stain - Final
06/21/24 Sacrum/coccyx XRAY: On the lateral view, air density adjacent to the inferior tip of the coccyx, suggesting an adjacent wound. No gross evidence for bony destruction. Compression deformity of the L5 vertebral body, age uncertain with no
comparison examination available. Please correlate clinically.
[2024-06-24] MEDS: KCL ELIXIR 40 MEQ PO (10:08)
[2024-06-24 10:57] LABS: Hematocrit 24.5 % (37.0-47.0); Hemoglobin 8.2 g/dL (12.0-16.0)
--- NOTE | 2024-06-24 13:24 | W.PN.HOSP.TC ---
Today's Communication/Plan
-
cont abx
monitor hgb
wean off o2
Assessment / Plan
Assessment / Plan
Constitutional: No Acute Distress and Comfortable
Eyes: No Conjunctival Hemorrhage and Sclera Anicteric
Cardiovascular: Regular Rate and S1/S2
Pulmonary: Clear
Gastrointestinal: Soft, Non Tender, Non Distended and Normal Bowel Sounds
Genito-Urinary: Negative CVA Tenderness
Extremities: Negative Edema
Wound: Other (Reviewed today wound photo: coccyx with scarred tissue, + wound opening probes to bone per Wound nurse, + yellowish tissue)
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
#osteomyelitis
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
# severe Sepsis
-Continue IV Ceft, flagyl (D3) - Will need 6 weeks IV abx
-Infectious disease consulted
-Tylenol as needed for fever or pain
-Wound care consulted
-MR Coccyx - pos for osteo
- Wound swab gram stain GPC, GNR; cx Strep Species
-trend cbc
-not having diarrhea
-Needs f/u with wound/plastics for flap/wond closure outpatient
#Syncopal episode
-most likely vasovagal with diarrhea; also happened with puncture site when blood was taken on admission
�Troponins negative, no chest pain
-cont on tele
-bps responded well with Fluids
-ct head unremarkable for acute findings
-no urinary symptoms
#Hyponatremia
-mild
-ctm
#Hypoxia
-most likely atelectasis +fluid
-wean off o2
-post syncopal episode- -monitor for pneumonia
-incentive mendez
-ECHO with no acute findings
-Stop IVF
# Anemia likely chronic
-Continue to monitor
# Hypokalemia/hypomagnesemia
-K3.3, magnesium 1.5
-monitor and replete
#hypertension likely from pain
-hydralazine added for SBp>180
# History of colon cancer
-Status post colon resection
#DVT prophylaxis
-Lovenox
#CODE status
-DNR/DNI
Anticipated Discharge: 24 - 48 hours
Subjective/Interval History
-
Date of Service: June 24, 2024
no issues overnight
Objective Data
-
Labs:
Laboratory Results
06/24/24 06/24/24
03:32 10:49
WBC 10.7
Hgb 7.5 L 8.2 L
Hct 22.4 L 24.5 L
Plt Count 465 H D
Sodium 134 L
Potassium 3.3 L
Chloride 101
Carbon Dioxide 25
BUN 28 H
Creatinine 0.7
Glucose 81
Calcium 8.3 L
Vital Signs:
Vital Signs
Temp Pulse Resp BP Pulse Ox
98.3 F 74 24 158/67 99
06/24/24 11:05 06/24/24 10:00 06/24/24 10:00 06/24/24 08:30 06/24/24 06:30
I&O
06/23/24 06/24/24 06/25/24
06:59 06:59 06:59
Intake Total 1440 / 1440 1500 / 1500
Output Total 535 / 535
Balance 1440 / 1440 965 / 965
Data Reviewed
-
Diagnostic Radiology: Image personally visualized and interpreted and Report Reviewed by me
Labs: Labs Reviewed by me
[2024-06-24] MEDS: STERILE WATER FOR INJECTION 20 ML IV (13:32)
[2024-06-24] MEDS: ROCEPHIN 2000 MG IV (13:32)
[2024-06-24] MEDS: FLAGYL 500 MG PO ×2 (15:19→23:42)
[2024-06-24] MEDS: LOVENOX 40 MG SC (17:36)
[2024-06-24] MEDS: APRESOLINE 10 MG IV (20:35)
[2024-06-25] VITALS (12 sets, daily range): BP systolic 113–179; BP diastolic 48–106
[2024-06-25] MEDS: TYLENOL 650 MG PO ×4 (03:21→23:59)
[2024-06-25 03:38] LABS: Hematocrit 23.7 % (37.0-47.0); Hemoglobin 7.9 g/dL (12.0-16.0); Mean Corp Hgb Conc. 33.3 g/dL (33.0-37.0); Mean Corpuscular Hgb 29.2 pg (27.0-31.0); Mean Corpuscular Volume 87.5 fL (81.0-99.0); Mean Platelet Volume 8.3 fL (7.4-10.4); Platelet Count 480 10^3/uL (130-400); Red Blood Cell Count 2.71 10^6/uL (4.20-5.40); Red Cell Dist. Width 15.8 % (11.5-14.5); White Blood Cell Count 11.3 10^3/uL (4.8-10.8)
[2024-06-25 04:21] LABS: Blood Urea Nitrogen 28 mg/dl (7-17); Calcium 8.6 mg/dl (8.4-10.2); Carbon Dioxide 24 mmol/L (22-30); Chloride 102 mmol/L (98-107); Estimated Creatinine Clearance 49 ml/min; Glucose 74 mg/dl (70-99); Potassium 3.7 mmol/L (3.5-5.1); Sodium 134 mmol/L (135-145); eGFR > 60.00
[2024-06-25] MEDS: TORADOL 15 MG IV ×2 (05:42→21:18)
--- NOTE | 2024-06-25 06:25 | PTCARENOTE ---
Patient incontinent 3 + stools overnight. Placed on enhanced precautions and cdiff sample sent to lab. PRN tylenol and toradal ineffective per patient and is requesting a lidocaine patch. house calls nurse practitioner provider made aware.
[2024-06-25] MEDS: FLAGYL 500 MG PO ×3 (07:41→23:56)
[2024-06-25] MEDS: LIDOCAINE 4% PATCH 1 PATCH TOPICAL (07:41)
[2024-06-25] MEDS: ROCEPHIN 2000 MG IV (12:24)
[2024-06-25] MEDS: STERILE WATER FOR INJECTION 20 ML IV (12:25)
--- NOTE | 2024-06-25 14:39 | W.PN.HOSP.TC ---
Today's Communication/Plan
-
cont iv abx
f/u id recs
add nifedepine
Assessment / Plan
Assessment / Plan
Constitutional: No Acute Distress and Comfortable
Eyes: No Conjunctival Hemorrhage and Sclera Anicteric
Cardiovascular: Regular Rate and S1/S2
Pulmonary: Clear
Gastrointestinal: Soft, Non Tender, Non Distended and Normal Bowel Sounds
Genito-Urinary: Negative CVA Tenderness
Extremities: Negative Edema
Wound: Other (Reviewed today wound photo: coccyx with scarred tissue, + wound opening probes to bone per Wound nurse, + yellowish tissue)
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
#osteomyelitis
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
# severe Sepsis
-Continue IV Ceft, flagyl (D4) - Will need 6 weeks IV abx
-Infectious disease consulted
-Tylenol as needed for fever or pain
-Wound care consulted
-MR Coccyx - pos for osteo
- Wound swab gram stain GPC, GNR; cx Strep Species
-trend cbc
-not having diarrhea
-Needs f/u with wound/plastics for flap/wound closure outpatient
#Syncopal episode
-most likely vasovagal with diarrhea; also happened with puncture site when blood was taken on admission
�Troponins negative, no chest pain
-cont on tele
-bps responded well with Fluids
-ct head unremarkable for acute findings
-no urinary symptoms
#Hyponatremia
-mild
-ctm
#Hypoxia
-most likely atelectasis +fluid
-wean off o2
-post syncopal episode- -monitor for pneumonia
-incentive mendez
-ECHO with no acute findings
-Stop IVF
# Anemia likely chronic
-Continue to monitor
# Hypokalemia/hypomagnesemia
-K3.3, magnesium 1.5
-monitor and replete
#hypertension likely from pain
-hydralazine added for SBp>180
-bp may be higher due to discomfort
-start nifedipine
# History of colon cancer
-Status post colon resection
#DVT prophylaxis
-Lovenox
#CODE status
-DNR/DNI
Anticipated Discharge: Within 24 hours
Subjective/Interval History
-
Date of Service: June 25, 2024
had some leg pain/twitching - improved with lidocaine
Objective Data
-
Labs:
Laboratory Results
06/25/24
03:29
WBC 11.3 H
Hgb 7.9 L
Hct 23.7 L
Plt Count 480 H
Sodium 134 L
Potassium 3.7
Chloride 102
Carbon Dioxide 24
BUN 28 H
Creatinine 0.5 L
Glucose 74
Calcium 8.6
Vital Signs:
Vital Signs
Temp Pulse Resp BP Pulse Ox
97.9 F 77 16 174/74 98
06/25/24 10:55 06/25/24 12:00 06/25/24 12:00 06/25/24 12:00 06/25/24 08:00
I&O
06/24/24 06/25/24 06/26/24
06:59 06:59 06:59
Intake Total 1500 / 1500
Output Total 535 / 535 53 / 53 75 / 75
Balance 965 / 965 -53 / -53 -75 / -75
Review of Systems
-
History Source: Patient
All other systems: Not reviewed unless documented
Data Reviewed
-
Diagnostic Radiology: Image personally visualized and interpreted and Report Reviewed by me
Labs: Labs Reviewed by me
--- NOTE | 2024-06-25 15:04 | PTOTSP ---
Patient requires new PT orders to resume therapy when appropriate due to transfer to higher level of care.
[2024-06-25] MEDS: PROCARDIA XL (EXTENDED RELEASE) 30 MG PO (16:05)
[2024-06-25] MEDS: LOVENOX 40 MG SC (17:49)
[2024-06-26] VITALS (53 sets, daily range): BP systolic 72–150; BP diastolic 31–63
[2024-06-26] MEDS: TYLENOL 650 MG PO ×3 (04:49→18:33)
[2024-06-26 05:12] LABS: Mean Corp Hgb Conc. 33.3 g/dL (33.0-37.0); Mean Corpuscular Hgb 28.5 pg (27.0-31.0); Mean Corpuscular Volume 85.4 fL (81.0-99.0); Mean Platelet Volume 8.4 fL (7.4-10.4); Platelet Count 539 10^3/uL (130-400); Red Blood Cell Count 2.81 10^6/uL (4.20-5.40); Red Cell Dist. Width 15.7 % (11.5-14.5); White Blood Cell Count 12.5 10^3/uL (4.8-10.8)
[2024-06-26 05:19] LABS: Blood Urea Nitrogen 29 mg/dl (7-17); Calcium 8.7 mg/dl (8.4-10.2); Carbon Dioxide 24 mmol/L (22-30); Chloride 102 mmol/L (98-107); Estimated Creatinine Clearance 49 ml/min; Glucose 92 mg/dl (70-99); Potassium 3.8 mmol/L (3.5-5.1); Sodium 133 mmol/L (135-145); eGFR > 60.00
[2024-06-26] MEDS: FLAGYL 500 MG PO ×3 (08:21→23:41)
[2024-06-26] MEDS: LIDOCAINE 4% PATCH 1 PATCH TOPICAL (08:22)
[2024-06-26] MEDS: PROCARDIA XL (EXTENDED RELEASE) 30 MG PO (08:23)
[2024-06-26] MEDS: TORADOL 15 MG IV ×2 (08:24→23:41)
--- NOTE | 2024-06-26 10:19 | W.PN.HOSP.TC ---
Today's Communication/Plan
-
see plan above
Assessment / Plan
Assessment / Plan
# Presyncope - possible vasovagal in nature . Follow HR and BP with fluid bolus. Hold anti HTN for now
#Syncopal episode during this admission
-most likely vasovagal with diarrhea; also happened with puncture site when blood was taken on admission
�Troponins negative, no chest pain
-cont on tele
-bps responded well with Fluids
-ct head unremarkable for acute findings
-no urinary symptoms
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
#osteomyelitis
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
# severe Sepsis
-Continue IV Ceft, flagyl (D4) - Will need 6 weeks IV abx
-Infectious disease following
-Tylenol as needed for fever or pain
-Wound care following
-MR Coccyx - pos for osteo
- Wound swab gram stain GPC, GNR; cx Strep Species
-trend cbc
-Needs f/u with wound/plastics for flap/wound closure outpatient
#Hyponatremia
-mild
-ctm
#Hypoxia
-most likely atelectasis +fluid
- off o2
-ECHO with no acute findings
# Left pleural efffusion - on cxr . Asymptomatic without SOB. Chest US to eval for tap .
# Anemia likely chronic
-Continue to monitor
- Check iron studies and heme test stool
# Hypokalemia/hypomagnesemia
-K3.3, magnesium 1.5
-monitor and replete
#hypertension likely from pain
-hydralazine added for SBp>180
-bp may be higher due to discomfort
-started on nifedipine on this admission -with vasovagal reactions will switch to ACEI and see .
# History of colon cancer
-Status post colon resection
#DVT prophylaxis
-Lovenox
#CODE status
-DNR/DNI
DW
Total time spent on today's encounter was 52 minutes which included time spent in counseling the patient/family regarding diagnosis and treatment plan as listed above, goals of care, and symptom management. Case was discussed with nursing staff,
specialists, and care coordinators/case management. All labs and imaging personally reviewed by me. Remainder the time spent in detailed review of previous records, lab data, imaging, and other medical provider documentation.
Anticipated Discharge: 24 - 48 hours
Subjective/Interval History
-
Date of Service: June 26, 2024
Walked into the room to find patient sitting in the chair. Daughter was attending to the patient trying to make her comfortable in the chair. Patient was complaining of coccyx pain and she was not able to find a comfortable position. She
apparently had a bowel movement and then started to feel oozy and lightheaded . She felt like passing out. She went into daze but was responsive. Checked BP immediately - it was systolic 77 and HR dipped to high 40s SR. No pauses on monitor.
It happened once like this with BM 2 days ago.
Pt put to bed and is given a fluid bolus with improvement of BP to 105 and HR went up to 60s .
No CP
No N/V
No abdo pain
Objective Data
-
Labs:
Laboratory Results
06/26/24
04:46
WBC 12.5 H
Hgb 8.0 L
Hct 24.0 L
Plt Count 539 H
Sodium 133 L
Potassium 3.8
Chloride 102
Carbon Dioxide 24
BUN 29 H
Creatinine 0.6
Glucose 92
Calcium 8.7
Vital Signs:
Vital Signs
Temp Pulse Resp BP Pulse Ox
97.8 F 73 12 147/54 96
06/26/24 07:10 06/26/24 08:23 06/26/24 08:21 06/26/24 08:23 06/26/24 09:54
I&O
06/25/24 06/26/24 06/27/24
06:59 06:59 06:59
Output Total 53 / 53 150 / 150
Balance -53 / -53 -150 / -150
Review of Systems
-
Unable to obtain full review of systems at this time due to: Other (due to vasovagal reaction)
Physical Exam
-
General: No Apparent Distress
HEENT: Moist Mucous Membranes
Respiratory: Clear to Auscultation (anteriorly)
Cardiac: Regular Rhythm, S1/S2 and Bradycardic
GI: Soft and Nontender
Neuro: AO x 3 and No Motor Deficits; Negative Tremors
Psych: Calm; Negative Confused
Data Reviewed
-
Labs: Labs Reviewed by me
--- NOTE | 2024-06-26 10:28 | PTCARENOTE ---
Patient was sitting in chair and heart rate dropped into the 40s, blood pressure 70/40s. Patient had fecal incontinence during this event. Patient placed back in bed. 250 NSS IV bolus administered. Blood pressure is now 115/48, heart rate 66. Laying
flat in bed.
[2024-06-26 11:25] LABS: Iron 45 ug/dl (37-170)
[2024-06-26 11:34] LABS: Percent Saturation 17 % (20-50); Total Iron Binding Capacity 264 ug/dl (265-497)
[2024-06-26] MEDS: STERILE WATER FOR INJECTION 20 ML IV (12:11)
[2024-06-26] MEDS: NSS 250 IV (12:11)
[2024-06-26] MEDS: ROCEPHIN 2000 MG IV (12:12)
[2024-06-26 14:39] LABS: NT-proBNP 2040 pg/ml
--- NOTE | 2024-06-26 15:03 | CON.GI ---
Addendum entered and electronically signed by Nat Ferrara MD 06/26/24 19:13:
I saw and examined the patient.
The SUPERVISOR PHOTOENGRAVING's note was reviewed and I agree with the note.
84yo presents with hx colon CA with resection, chemo and radiation in 2001. She had last follow up with Dr. Black about 5 years ago and recalls stable colonoscopy. She reports over last few months noted increased sitting and change in sacrum
with knee and hip issue and decreased mobility due for hip replacement in August. She now presents with foul smelling odor from sacral wound prompting admission with concern for osteo with sepsis. Asked to see for drop in hbg from 9.6 on
admission to 7.9 with heme + stools and slight increased BUN 29. Iron studies completed not consistent with iron deficiency with iron 45, TIBC 264, % sat 17 ferritin 60.8. Pt also noted with syncope with episode during admission with vasovagal
with diarrhea with antibiotic use with neg c-diff testing. + occasional NSAID use prior to admission.
-anemia iron studies not c/w iron deficiency
-heme + brown stool
-diarrhea ? abx related
-occasional NSAID use
-syncope during admission - vasovagal with diarrhea
-colon CA with resection and XRT to pelvic bone
-large sacral decub
-osteomyelitis with sepsis/leukocytosis
-thrombocytosis
-hyponatremia
-hypoxia
-left pleural effusion
-decreased mobility to knee and hip pain
plan
Patient denies any overt GI bleeding at present. Heme positive stools. Currently being treated for large sacral decubitus/osteomyelitis. Discussed about endoscopic evaluation for anemia. Patient does not want EGD or colonoscopy during this
admission. She will follow up with her GI Dr. Mayorga after discharge. Will sign off. Please call us back if any question
Original Note:
Consultation
-
Date/Time Consultation Requested: 06/26/24 1115
Date/Time Consultation Performed: 06/26/24 1500
Requesting Provider: Rigo Frederick MD
Performing Provider: CASSIE Mota, Nat Ferrara MD
Reason for Consultation: anemia with heme + stool
Medical History
Chief Complaint / HPI
Chief Complaint: heme + stool
History of Present Illness:
Pt is an 84yo presents with hx colon CA with resection, chemo and radiation in 2001. She had last follow up with Dr. Black about 5 years ago and recalls stable colonoscopy. She reports over last few months noted increased sitting and change in
sacrum with knee and hip issue and decreased mobility due for hip replacement in August. She now presents with foul smelling odor from sacral wound prompting admission with concern for osteo with sepsis. Asked to see for drop in hbg from
9.6 on admission to 7.9 with heme + stools and slight increased BUN 29. Iron studies completed not consistent with iron deficiency with iron 45, TIBC 264, % sat 17 ferritin 60.8. Pt also noted with syncope with episode during admission with
vasovagal with diarrhea with antibiotic use with neg c-diff testing.
Pt denies dysphagia, odynophagia, GERD, nausea, vomiting, abdominal pain, blood or black in stools. Last colonoscopy 5 years ago recalls as stable.
Past Medical History
Past Medical History: Cancer (colon CA with chemo and radiation)
Past Surgical History: Bowel Resection (resection)
Social History
Tobacco: Non-Smoker
Alcohol: Occasional (last few months ago )
Drug: None
Personal:
Living: Alone
Employment: Retired
Family History
Family History: Other ( no family hx colon CA or polyps)
Allergies / Home Medications
Allergy/AdvReac Type Severity Reaction Status Date / Time
Penicillins Allergy Rash in Verified 06/22/24 10:48
her 30's
�Medication �Instructions �Recorded
acetaminophen 500 mg tablet 1,000 mg PO Q6HPRN PRN mild pain 06/21/24
(Tylenol Extra Strength)
ciprofloxacin HCl 500 mg tablet 500 mg PO BID 06/21/24
loperamide 2 mg capsule 4 mg PO QIDPRN PRN diarrhea 06/21/24
therapeutic multivitamin 1 tab PO DAILY 06/21/24
Review of Systems
-
History Source: Patient
Constitutional: Reports Weight Loss and Fatigue
EENT: Reports No Symptoms
Respiratory: Reports No Symptoms
Abdomen/GI: Reports Diarrhea and Other (heme + stool)
: Reports Difficulty Voiding
Musculoskeletal: Reports Joint Pain (hip and knee pain)
Skin: Reports No Symptoms
Neurological: Reports Weakness
Endocrine: Reports No Symptoms
Hematologic/Lymphatic: Reports No Symptoms
Vital Signs
Temp Pulse Resp BP Pulse Ox
97.6 F 82 19 116/50 97
06/26/24 11:10 06/26/24 14:15 06/26/24 14:15 06/26/24 14:15 06/26/24 13:15
Physical Exam
Exam
General: Other (thin elderly female no acute distress )
HEENT: Normocephalic and Anicteric
Respiratory: Clear
Cardiac: Regular Rhythm
GI: Soft, Non Tender and Non Distended
Rectal: Other (brown liquid stool no impaction , some limited exam with but no mass noted )
Musculoskeletal: No Clubbing and No Cyanosis
Skin: Warm and Dry
Neuro: Awake, Alert and AO x 3
Psych: Calm
Results
WBC 12.5 10^3/uL (4.8-10.8) H 06/26/24 04:46
Hgb 8.0 g/dL (12.0-16.0) L 06/26/24 04:46
Hct 24.0 % (37.0-47.0) L 06/26/24 04:46
MCV 85.4 fL (81.0-99.0) 06/26/24 04:46
Plt Count 539 10^3/uL (130-400) H 06/26/24 04:46
Absolute Neuts (auto) 17.7 10^3/uL (1.4-6.5) H 06/23/24 08:44
PT 14.4 Sec (11.4-14.6) 06/23/24 08:44
INR 1.14 06/23/24 08:44
APTT 30.2 Sec (23.4-35.0) 06/23/24 08:44
Sodium 133 mmol/L (135-145) L 06/26/24 04:46
Potassium 3.8 mmol/L (3.5-5.1) 06/26/24 04:46
Chloride 102 mmol/L (98-107) 06/26/24 04:46
Carbon Dioxide 24 mmol/L (22-30) 06/26/24 04:46
BUN 29 mg/dl (7-17) H 06/26/24 04:46
Creatinine 0.6 mg/dL (0.6-1.0) 06/26/24 04:46
Calcium 8.7 mg/dl (8.4-10.2) 06/26/24 04:46
Total Bilirubin 0.6 mg/dl (0.2-1.3) 06/23/24 08:44
AST 35 U/L (14-36) 06/23/24 08:44
ALT 16 U/L (0-35) 06/23/24 08:44
Alkaline Phosphatase 99 U/L (38-126) 06/23/24 08:44
Diagnostic Image Results:
06/23 MR Pelvis W/o  With Contrast
1. Osteomyelitis of the coccyx and inferior tip of the sacrum deep to the sacral decubitus ulcer.
2. Severe arthrosis of the right hip with signal changes in the right femoral head that are most compatible with avascular necrosis. Reactive/degenerative bone marrow edema in the right femoral head and neck and right superior acetabulum.
814CR Sacrum/coccyx Min 2 View
IMPRESSION: On the lateral view, air density adjacent to the inferior tip of the coccyx, suggesting an adjacent wound. No gross evidence for bony destruction.
Compression deformity of the L5 vertebral body, age uncertain with no comparison examination available. Please correlate clinically.
Prior GI Procedures:
EGD: denies
Colonoscopy: last Dr. Black recalls as normal
Assessment / Plan
-
Pt is an 84yo presents with hx colon CA with resection, chemo and radiation in 2001. She had last follow up with Dr. Black about 5 years ago and recalls stable colonoscopy. She reports over last few months noted increased sitting and change in
sacrum with knee and hip issue and decreased mobility due for hip replacement in August. She now presents with foul smelling odor from sacral wound prompting admission with concern for osteo with sepsis. Asked to see for drop in hbg from 9.6
on admission to 7.9 with heme + stools and slight increased BUN 29. Iron studies completed not consistent with iron deficiency with iron 45, TIBC 264, % sat 17 ferritin 60.8. Pt also noted with syncope with episode during admission with vasovagal
with diarrhea with antibiotic use with neg c-diff testing. + occasional NSAID use prior to admission.
-anemia iron studies not c/w iron deficiency
-heme + brown stool
-diarrhea ? abx related
-occasional NSAID use
-syncope during admission - vasovagal with diarrhea
-colon CA with resection and XRT to pelvic bone
-large sacral decub
-osteomyelitis with sepsis/leukocytosis
-thrombocytosis
-hyponatremia
-hypoxia
-left pleural effusion
-decreased mobility to knee and hip pain
PLAN:
etiology of anemia likely multifactorial with heme + stool and sacral decub
iron studies as noted
trend hbg transfuse as needed -- pt unsure if she would want transfusion
discussed with heme + stool and hx colon CA about colonoscopy she declines to proceed with other current medication issues and large sacral wound
if continued drop can consider EGD if pt agreeable with Hx NSAID use
add PPI daily
avoid NSAIDs
monitor stools with diarrhea likely antibiotic related
cont abx per ID
-
-
Thank you for consultation and allowing me to participate in the patient's care. Please call the tenon machine operator GI physician during the after hours with any questions or concerns.
[2024-06-26 15:09] LABS: Ferritin 60.8 ng/ml (11.1-264.0)
[2024-06-26 16:11] LABS: Reticulocyte Count 3.3 % (0.4-2.8)
--- NOTE | 2024-06-26 16:47 | CM ---
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 Episode near syncope today. O2 1L. Receiving IV Abx. PT 06/22; likely no needs, PT now on hold. Seen by wound care
nurse; hospital bed with air mattress recommended.
Spoke with patient's daughter Arlene; she would like her mother to go to [facility] for IV Abx, wound care and any rehab needed. She has been in contact with Lyndsay Cardoza at the [facility].
Phone call to Lyndsay Cardoza [facility]; left message requesting callback re; the referral. Referral placed in [facility].
Will need script for IV Abx.
Plan follow up with [facility] for acceptance.
[2024-06-26] MEDS: LOVENOX 40 MG SC (17:00)
--- NOTE | 2024-06-26 19:20 | PTCARENOTE ---
At 1920 pt resting in bed. pt is aaox3, sacral dressing intact. pt rec'd Tylenol earlier for hip pain w/+eff.
[2024-06-27] VITALS (23 sets, daily range): BP systolic 129–185; BP diastolic 48–85; BMI 18.4
--- NOTE | 2024-06-27 00:47 | PTCARENOTE ---
pt assisted to bsc - no c/o lightheadedness, or dizziness. pt voided 125ml of jere urine and small soft bm. pt was assisted back to bedd w/o any issue. bladder scan pot void 310ml. pt abd is not distended and states she feels fine. bm heme positive
[2024-06-27] MEDS: TYLENOL 650 MG PO ×3 (02:57→21:07)
[2024-06-27 03:29] LABS: Hematocrit 21.8 % (37.0-47.0); Hemoglobin 7.2 g/dL (12.0-16.0); Mean Corpuscular Hgb 28.5 pg (27.0-31.0); Mean Corpuscular Volume 86.2 fL (81.0-99.0); Mean Platelet Volume 8.4 fL (7.4-10.4); Platelet Count 475 10^3/uL (130-400); Red Blood Cell Count 2.53 10^6/uL (4.20-5.40); Red Cell Dist. Width 15.9 % (11.5-14.5); White Blood Cell Count 11.2 10^3/uL (4.8-10.8)
[2024-06-27 04:26] LABS: TSH 2.62 uIU/ml (0.47-4.68)
[2024-06-27 05:02] LABS: Folate 12.1 ng/ml (2.76-20); Vitamin B12 883 pg/ml (239-931)
[2024-06-27 05:15] LABS: Blood Urea Nitrogen 26 mg/dl (7-17); Calcium 8.4 mg/dl (8.4-10.2); Carbon Dioxide 25 mmol/L (22-30); Chloride 105 mmol/L (98-107); Estimated Creatinine Clearance 53 ml/min; Glucose 87 mg/dl (70-99); Potassium 3.3 mmol/L (3.5-5.1); Sodium 134 mmol/L (135-145); eGFR > 60.00
--- NOTE | 2024-06-27 05:54 | W.PN.UPDATE ---
Update Note
Progress Note Update
RN notified Lab results. hgb 7.2, stable VS, patient asymptomatic, heme positive, will order another H&H
K 3.3, ordered KCL 40meq IV now,
[2024-06-27] MEDS: KCL 270 MEQ IV (06:11)
[2024-06-27] MEDS: FLAGYL 500 MG PO ×3 (08:59→23:39)
[2024-06-27] MEDS: ZESTRIL 20 MG PO (08:59)
[2024-06-27] MEDS: LIDOCAINE 4% PATCH 1 PATCH TOPICAL (08:59)
[2024-06-27] MEDS: PROTONIX 40 MG PO (08:59)
--- NOTE | 2024-06-27 09:52 | W.PN.HOSP.TC ---
Today's Communication/Plan
-
Continue with antibiotics
Transfuse PRBC if patient consents for blood transfusion
Assessment / Plan
Assessment / Plan
# Presyncope 06/26 - possible vasovagal in nature .Resolved and didnt recur.
#Syncopal episode during this admission
-most likely vasovagal with diarrhea; also happened with puncture site when blood was taken on admission
� ECHO with normal EF
- ct head unremarkable for acute findings
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
#osteomyelitis
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
# severe Sepsis
-Continue IV Ceft, flagyl - Will need 6 weeks IV abx
-Infectious disease following
-Tylenol as needed for fever or pain
-Wound care following
-MR Coccyx - pos for osteo
- Wound swab gram stain GPC, GNR; cx Strep Species
-trend cbc
-Needs f/u with wound/plastics for flap/wound closure outpatient
#Hyponatremia
-mild
-ctm
# Hypokalemia -replete
#Hypoxia
# Left pleural efffusion - on cxr -. Asymptomatic without SOB.
-most likely atelectasis +fluid
-BNP without significant elevation. No lower extremity edema. No JVD.
-Needing intermittent oxygen
-ECHO with no acute findings
-Chest US to eval for tap .
# Anemia normocytic-severe
# Heme positive brown stools
-Iron studies does not suggest iron deficiency
-GI input noted-patient declining endoscopic eval and the signed off.
-Patient also declining blood transfusions
#hypertension likely from pain
-hydralazine added for SBp>180
-bp may be higher due to discomfort
-started on nifedipine on this admission -with vasovagal reactions will switch to ACEI and see .
# History of colon cancer
-Status post colon resection
#DVT prophylaxis
-Lovenox
#CODE status
-DNR/DNI
Discussed with RN
DW Arlene her daughter and asked her to have a discussion with mom regarding goals of care as patient is refusing endoscopic eval and blood transfusions. Also mentioned that her mom told me that she is not ready for a long call with antibiotics and
plastic surgery down the line.
Total time spent on today's encounter was 52 minutes which included time spent in counseling the patient/family regarding diagnosis and treatment plan as listed above, goals of care, and symptom management. Case was discussed with nursing staff,
specialists, and care coordinators/case management. All labs and imaging personally reviewed by me. Remainder the time spent in detailed review of previous records, lab data, imaging, and other medical provider documentation.
Anticipated Discharge: 24 - 48 hours
Subjective/Interval History
-
Date of Service: June 27, 2024
Pain from the sacral wound is better ; it is more like an ache now.
Feeling weak and tired. Not much appetite but no nausea or vomiting. Does not think she has loose stools today.
Denies shortness of breath or chest pain.
Slept better last night compared to the previous night.
Objective Data
-
Labs:
Laboratory Results
06/27/24 06/27/24 06/27/24
03:08 06:00 10:00
WBC 11.2 H
Hgb 7.2 L Pending
Hct 21.8 L Pending
Plt Count 475 H
Sodium 134 L Cancelled
Potassium 3.3 L Cancelled
Chloride 105 Cancelled
Carbon Dioxide 25 Cancelled
BUN 26 H Cancelled
Creatinine 0.6 Cancelled
Glucose 87 Cancelled
Calcium 8.4 Cancelled
Vital Signs:
Vital Signs
Temp Pulse Resp BP Pulse Ox
97.8 F 71 21 175/64 97
06/27/24 07:35 06/27/24 08:59 06/27/24 08:59 06/27/24 08:59 06/27/24 08:59
I&O
06/26/24 06/27/24 06/28/24
06:59 06:59 06:59
Intake Total 870 / 870
Output Total 150 / 150 400 / 400 100 / 100
Balance -150 / -150 470 / 470 -100 / -100
Review of Systems
-
Constitutional: Reports Fatigue; Denies Fever or Chills
Respiratory: Denies Trouble Breathing
Cardiac: Denies Chest Pain
Abdomen/GI: Denies Abdominal Pain
Genitourinary: Reports Difficulty Voiding (but was able to void last night); Denies Dysuria
Neuro: Denies Dizzy
Physical Exam
-
General: No Apparent Distress
HEENT: Moist Mucous Membranes
Respiratory: Clear to Auscultation (Anteriorly) and Non Labored Respirations; Negative Accessory Resp Muscle Use
Cardiac: Regular Rhythm and S1/S2
GI: Soft and Nontender
Neuro: AO x 3
Psych: Calm; Negative Confused or Agitated
Data Reviewed
-
Labs: Labs Reviewed by me
--- NOTE | 2024-06-27 10:03 | CM ---
Addendum entered by Lenore Milan RN 06/27/24 15:15:
Plastic Surgery Consult noted. Transfusion ordered.
Spoke with Dr Strickland who provided script for IV Abx - Rocephin 2gm IV Q24 via PICC/midline, CBC w diff, BMP Q weekly on Wednesday.
Spoke with Lyndsay Pelletier [facility]; faxed her the script for IV Abx. Liyah expressed concern about patient's H/H - provided update patient has order for transfusion today. NPIs provided when ready for SNF auth: facility
[id number], Dr Eusebio Saeed [id number].
Plan SNF auth when closer to d/c.
Original Note:
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 Receiving IV ceftriaxone. PT 06/22; likely no needs, PT now on hold. Seen by wound care
nurse; hospital bed with air mattress recommended.
Spoke with Lyndsay Pelletier & Michell [facility] at [facility] ( ph [phone] x [phone], fax [phone]). They cannot access referral that was sent via [facility] and asked for referral by fax ---> sent via [employer]. Clinical
update provided. They will be able to accommodate IV Abx and are inquiring about PICC line- not yet ordered. They are aware patient will need hospital bed with air mattress. Will provide NPIs for auth when closer to d/c.
Patient will need PT/OT Evals when medically appropriate.
Will need script for IV Abx to provide to SNF as well as PICC line info.
Plan [facility] when medically ready and SNF auth obtained.
[2024-06-27] MEDS: STERILE WATER FOR INJECTION 20 ML IV (12:22)
[2024-06-27] MEDS: ROCEPHIN 2000 MG IV (12:23)
--- NOTE | 2024-06-27 13:43 | W.PN.ID1 ---
Date of Service
Date of Service: June 27, 2024
Today's Communication
Continue antibiotics.
Assessment / Plan
# Acute leukocytosis
-Overall improved
# Diarrhea
-Resolved
-Follow wbc
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
# PCN allergy
- MRI pelvis c/w osteomyelitis tip of the sacrum deep to the ulcer
- CRP <5.00,
- Wound swab gram stain GPC, GNR; cx Strep species
- c/w ceftriaxone for 6 week course. Prescription given to CM.
- Continue PO metronidazole to complete 2 weeks.
- Dr Marte discussed with patient and daughter if 6 weeks of IV abx is beneficial ONLY IF there is plan for wound closure/flap in her case.
- Will need follow-up with Wound Care and Plastics.
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
Colon cancer status post resection and radiation (2001)
Osteoarthritis of right hip, for eventual hip replacement
IBS
Chief Complaint
-: Leukocytosis and Other (sacral wound)
Subjective / Review of Systems
Review of Systems: No Fever and No Chills
Vital Signs / Physical Exam
Vital Signs
Vital Signs
Temp Pulse Resp BP Pulse Ox
97.8 F 71 22 171/60 95
06/27/24 11:40 06/27/24 10:00 06/27/24 10:00 06/27/24 10:00 06/27/24 11:55
Physical Exam
Constitutional: No Acute Distress, Comfortable, Non-toxic and Cachetic (Mild)
Eyes: No Conjunctival Hemorrhage
Cardiovascular: S1/S2; Negative S3/S4
Pulmonary: Non Labored
Gastrointestinal: Soft and Non Tender
Skin: Negative Rash or Jaundice
Wound: Other (Sacral/coccygeal wound dressed.)
Neurological: Awake, Alert and Oriented
Psychological: Calm
Objective Data
Lab Data
Lab Results
06/27/24 06:00
ESR Cancelled 06/21/24 21:45
PT 14.4 Sec (11.4-14.6) 06/23/24 08:44
INR 1.14 06/23/24 08:44
APTT 30.2 Sec (23.4-35.0) 06/23/24 08:44
Estimated Creat Clear Cancelled 06/27/24 06:00
Lactic Acid 1.2 mmol/L (0.7-2.0) 06/23/24 21:43
Total Bilirubin 0.6 mg/dl (0.2-1.3) 06/23/24 08:44
AST 35 U/L (14-36) 06/23/24 08:44
ALT 16 U/L (0-35) 06/23/24 08:44
Alkaline Phosphatase 99 U/L (38-126) 06/23/24 08:44
C-Reactive Protein < 5.00 mg/L (0.0-10.00) 06/23/24 08:44
Most recent labs reviewed.
Micro Results:
06/21/24 16:16 Blood Culture - Final
Blood/Venous No Growth - Final Report
06/24/24 02:27 Urine Culture - Final
Urine NO GROWTH
06/25/24 05:55 C. difficile GDH Antigen & Toxins - Final
Feces/Stool Negative for toxigenic C.difficile
06/21/24 17:42 Wound Culture - Final
Sacral Streptococcus species
Gram Stain - Final
06/21/24 Sacrum/coccyx XRAY: On the lateral view, air density adjacent to the inferior tip of the coccyx, suggesting an adjacent wound. No gross evidence for bony destruction. Compression deformity of the L5 vertebral body, age uncertain with no
comparison examination available. Please correlate clinically.
[2024-06-27] MEDS: LOVENOX 40 MG SC (17:14)
--- NOTE | 2024-06-27 19:25 | PTCARENOTE ---
daughter and pt stated the want to due the sacral wound closure and if possible to get it done while she is here. explaind they need to speak with the doctor in the morning. pt and family agreeable w/ this plan.
[2024-06-27] MEDS: APRESOLINE 10 MG IV (23:46)
[2024-06-28] VITALS (15 sets, daily range): BP systolic 71–176; BP diastolic 48–94
--- NOTE | 2024-06-28 00:02 | PTCARENOTE ---
blood transfusion completed. vss. no reaction noted. pt sleeping in bed.
[2024-06-28] MEDS: TYLENOL 650 MG PO ×2 (01:30→20:03)
--- NOTE | 2024-06-28 03:06 | DOWNTIME ---
There was a [employer] Client Respiratory Care Technician Downtime on 06/28/2024 from 0100 to 06/28/2024 at 0252. Downtime documentation of patient's care, including medication administrations, has been reconciled in the electronic record per guidelines. Refer to the
patient's paper chart under the miscellaneous tab to see printed paper medication records and downtime forms.
[2024-06-28 04:13] LABS: Hematocrit 27.3 % (37.0-47.0); Hemoglobin 9.3 g/dL (12.0-16.0); Mean Corp Hgb Conc. 34.1 g/dL (33.0-37.0); Mean Corpuscular Hgb 28.7 pg (27.0-31.0); Mean Corpuscular Volume 84.3 fL (81.0-99.0); Mean Platelet Volume 8.5 fL (7.4-10.4); Platelet Count 455 10^3/uL (130-400); Red Blood Cell Count 3.24 10^6/uL (4.20-5.40); Red Cell Dist. Width 16.7 % (11.5-14.5); White Blood Cell Count 10.9 10^3/uL (4.8-10.8)
[2024-06-28 04:29] LABS: Blood Urea Nitrogen 23 mg/dl (7-17); Calcium 8.5 mg/dl (8.4-10.2); Carbon Dioxide 24 mmol/L (22-30); Chloride 105 mmol/L (98-107); Estimated Creatinine Clearance 53 ml/min; Glucose 81 mg/dl (70-99); Potassium 3.5 mmol/L (3.5-5.1); Sodium 134 mmol/L (135-145); eGFR > 60.00
--- NOTE | 2024-06-28 04:46 | PTCARENOTE ---
pt bladder scan for 540. void 100ml jere urine. re-bladder scan for 430. straight cath for 400ml. pt tolerate procedure.
[2024-06-28] MEDS: PROTONIX 40 MG PO (08:39)
[2024-06-28] MEDS: LIDOCAINE 4% PATCH 1 PATCH TOPICAL (08:39)
[2024-06-28] MEDS: FLAGYL 500 MG PO ×2 (08:39→17:16)
[2024-06-28] MEDS: ZESTRIL 20 MG PO ×2 (08:40→20:03)
--- NOTE | 2024-06-28 09:37 | W.PN.HOSP.TC ---
Today's Communication/Plan
-
continue with antibiotics. Await plastics input.
Increase the dose of lisinopril. Add low-dose Lasix.
Obtain diagnostic left thoracentesis.
Assessment / Plan
Assessment / Plan
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
# osteomyelitis based on clinical and radiological data
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
# severe Sepsis
-Continue IV Ceft, flagyl - Will need 6 weeks IV abx
-Infectious disease following
-Tylenol as needed for fever or pain
-Wound care following
- MR Coccyx - pos for osteo
- Wound swab gram stain GPC, GNR; cx Strep Species
- trend cbc
- Consulted plastics for flap/wound closure feasibility
# Presyncope 06/26 - possible vasovagal in nature .Resolved and didnt recur.
#Syncopal episode during this admission
- most likely vasovagal with diarrhea; also happened with puncture site when blood was taken on admission
� ECHO with normal EF
- ct head unremarkable for acute findings
#Hyponatremia
-mild
-ctm
# Hypoxia
# Left pleural efffusion - on cxr -. Asymptomatic without SOB. Cant rule out acute diastolic CHF .
- most likely atelectasis +fluid
- BNP in low 2000 - based on age criteria will rule in. No lower extremity edema. No JVD.
- Needing intermittent oxygen
- ECHO with normal EF and Mod AR.
-Chest US to eval for tap -shows moderate fluid - IR consult for tap
- add low dose lasix and follow
- Optimize BP and HH.
# Anemia normocytic-severe
# Heme positive brown stools
-Iron studies does not suggest iron deficiency
-GI input noted-patient declining endoscopic eval and the signed off.
-Patient agreed for transfusion -got one unit 06/27 with improvement in HH.
- ctm
#hypertension suspect essential and untreated - remains high despite starting on antihypertensive treatment
-started on nifedipine on this admission -with vasovagal reactions switched to ACEI -increase the dose of 8 cm to twice daily .
# History of colon cancer
-Status post colon resection
#DVT prophylaxis
-Lovenox
#CODE status
-DNR/DNI
Discussed with RN
Total time spent on today's encounter was 52 minutes which included time spent in counseling the patient/family regarding diagnosis and treatment plan as listed above, goals of care, and symptom management. Case was discussed with nursing staff,
specialists, and care coordinators/case management. All labs and imaging personally reviewed by me. Remainder the time spent in detailed review of previous records, lab data, imaging, and other medical provider documentation.
Anticipated Discharge: > 48 hours
Subjective/Interval History
-
Date of Service: June 28, 2024
Sacral ulcer pain is well-controlled.
Not much appetite but no nausea vomiting. No diarrhea.
Denies any shortness of breath. She is requiring 1 L of oxygen. She is mostly left lateral lying position because of her wound in the sacrum. Denies any cough or chest pain.
Objective Data
-
Labs:
Laboratory Results
06/28/24
03:57
WBC 10.9 H
Hgb 9.3 L D
Hct 27.3 L
Plt Count 455 H
Sodium 134 L
Potassium 3.5
Chloride 105
Carbon Dioxide 24
BUN 23 H
Creatinine 0.5 L
Glucose 81
Calcium 8.5
Vital Signs:
Vital Signs
Temp Pulse Resp BP Pulse Ox
97.9 F 60 14 170/54 95
06/28/24 07:50 06/28/24 08:40 06/28/24 08:00 06/28/24 08:40 06/28/24 08:51
I&O
06/27/24 06/28/24 06/29/24
06:59 06:59 06:59
Intake Total 870 / 870 690 / 690
Output Total 400 / 400 720 / 720
Balance 470 / 470 -30 / -30
Review of Systems
-
Constitutional: Denies Fever
EENT: Denies Sore Throat
Respiratory: Denies Trouble Breathing
Neuro: Denies Dizzy
Physical Exam
-
General: No Apparent Distress
HEENT: Moist Mucous Membranes
Respiratory: Decreased Breath Sounds (in left base with associated crackles)
Cardiac: Regular Rhythm and S1/S2
GI: Soft
Musculoskeletal: No Edema
Neuro: AO x 3
Psych: Calm; Negative Confused
Data Reviewed
-
Labs: Labs Reviewed by me
--- NOTE | 2024-06-28 09:48 | W.PN.ID1 ---
Date of Service
Date of Service: June 28, 2024
Today's Communication
Continue antibiotics. Await further input from Plastic surgery
Assessment / Plan
# Acute leukocytosis
-Overall improved
# Diarrhea
-Resolved
-Follow wbc
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
# Osteomyelitis of coccyx/sacrum
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
# Hx PCN allergy
- MRI pelvis c/w osteomyelitis tip of the sacrum deep to the ulcer
- CRP <5.00,
- Wound swab gram stain GPC, GNR; cx Strep species
- c/w ceftriaxone for 6 week course. Prescription given to CM.
- Continue PO metronidazole to complete 2 weeks.
- Dr Marte discussed with patient and daughter if 6 weeks of IV abx is beneficial ONLY IF there is plan for wound closure/flap in her case. Plastics to evaluate patient
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
Colon cancer status post resection and radiation (2001)
Osteoarthritis of right hip, for eventual hip replacement
IBS
����������������������������������������������������������
Chief Complaint
-: Leukocytosis and Other (Stage IV sacral wound; osteomyelitis)
Subjective / Review of Systems
Review of Systems: No Fever and No Chills
Vital Signs / Physical Exam
Vital Signs
Vital Signs
Temp Pulse Resp BP Pulse Ox
97.9 F 60 14 170/54 95
06/28/24 07:50 06/28/24 08:40 06/28/24 08:00 06/28/24 08:40 06/28/24 08:51
Physical Exam
Constitutional: No Acute Distress, Comfortable, Non-toxic and Cachetic (Mild)
Eyes: No Conjunctival Hemorrhage
Cardiovascular: S1/S2; Negative S3/S4
Pulmonary: Non Labored
Gastrointestinal: Soft and Non Tender
Skin: Negative Rash or Jaundice
Wound: Other (Sacral/coccygeal wound dressed.)
Neurological: Awake, Alert and Oriented
Psychological: Calm
Objective Data
Lab Data
Lab Results
06/28/24 03:57
06/28/24 03:57
ESR Cancelled 06/21/24 21:45
PT 14.4 Sec (11.4-14.6) 06/23/24 08:44
INR 1.14 06/23/24 08:44
APTT 30.2 Sec (23.4-35.0) 06/23/24 08:44
Estimated Creat Clear 53 ml/min 06/28/24 03:57
Lactic Acid 1.2 mmol/L (0.7-2.0) 06/23/24 21:43
Total Bilirubin 0.6 mg/dl (0.2-1.3) 06/23/24 08:44
AST 35 U/L (14-36) 06/23/24 08:44
ALT 16 U/L (0-35) 06/23/24 08:44
Alkaline Phosphatase 99 U/L (38-126) 06/23/24 08:44
C-Reactive Protein < 5.00 mg/L (0.0-10.00) 06/23/24 08:44
Most recent labs reviewed.
Micro Results:
06/21/24 16:16 Blood Culture - Final
Blood/Venous No Growth - Final Report
06/24/24 02:27 Urine Culture - Final
Urine NO GROWTH
06/25/24 05:55 C. difficile GDH Antigen & Toxins - Final
Feces/Stool Negative for toxigenic C.difficile
06/21/24 17:42 Wound Culture - Final
Sacral Streptococcus species
Gram Stain - Final
Imaging:
06/23/2024 MRI pelvis: Osteomyelitis of the coccyx and inferior tip of the sacrum deep to the sacral decubitus ulcer. Severe arthrosis of the right hip with signal changes in the right femoral head that are most compatible with avascular necrosis.
Reactive/degenerative bone marrow edema in the right femoral head and neck and right superior acetabulum.
06/21/24 Sacrum/coccyx XRAY: On the lateral view, air density adjacent to the inferior tip of the coccyx, suggesting an adjacent wound. No gross evidence for bony destruction. Compression deformity of the L5 vertebral body, age uncertain with no
comparison examination available. Please correlate clinically.
Care Review
Plan reviewed with: Physician (Hospitalist)
[2024-06-28 11:17] LABS: Body Fluid pH 7.52
[2024-06-28 11:29] LABS: Body Fluid LDH < 90 U/L; Body Fluid Protein < 2.0 g/dl
[2024-06-28] MEDS: LASIX 20 MG IV (12:04)
[2024-06-28] MEDS: ROCEPHIN 2000 MG IV (12:10)
[2024-06-28] MEDS: STERILE WATER FOR INJECTION 20 ML IV (12:11)
--- NOTE | 2024-06-28 15:53 | CM ---
Patient from 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 Plastic surgery Consult pending. O2 2L. Receiving IV ceftriaxone, IV Lasix.
Updated PT/OT Evals pending.
Spoke with Liyah, Lyndsay Salcedo at [facility] ( ph [phone] x [phone], fax [phone]); they could take this patient tomorrow or Saturday 06/30, if plastic surgery is not needed and she is otherwise medically ready, otherwise
next time they could accept is Tuesday 07/03. Liyah will be off Wednesday through Wednesday however they could take this patient on 06/30 if setup tomorrow.
NPIs provided when ready for SNF auth: facility [id number], Dr Eusebio Saeed [id number].
Plan SNF auth when closer to d/c. Will need updated PT/OT notes.
Plan [address] at [facility].
--- NOTE | 2024-06-28 17:01 | PTCARENOTE ---
Rec'd pt this AM. Pt with frequent loose BMs. When pt on BSC, HR to 42 and pt became pale. RN and PCT helped pt back to bed. Pt also unable to use bedpan due to location of sacral wound. Discussed with Dr. Frederick. Rectal trumpet placed, as opposed to
FMS due to the very small size of pt's rectum. Pt now voiding large amounts. Plastic surgeon in to see pt
[2024-06-28] MEDS: LOVENOX 40 MG SC (17:16)
[2024-06-29] VITALS (16 sets, daily range): BP systolic 142–169; BP diastolic 50–96; PULSE 86; O2SAT 94
[2024-06-29] MEDS: FLAGYL 500 MG PO ×4 (00:49→23:09)
[2024-06-29] MEDS: TYLENOL 650 MG PO ×3 (00:51→19:25)
[2024-06-29 04:54] LABS: Hematocrit 27.3 % (37.0-47.0); Hemoglobin 9.3 g/dL (12.0-16.0); Mean Corp Hgb Conc. 34.1 g/dL (33.0-37.0); Mean Corpuscular Hgb 28.7 pg (27.0-31.0); Mean Corpuscular Volume 84.3 fL (81.0-99.0); Mean Platelet Volume 8.4 fL (7.4-10.4); Platelet Count 481 10^3/uL (130-400); Red Blood Cell Count 3.24 10^6/uL (4.20-5.40); Red Cell Dist. Width 17.2 % (11.5-14.5); White Blood Cell Count 10.2 10^3/uL (4.8-10.8)
[2024-06-29 05:27] LABS: Blood Urea Nitrogen 21 mg/dl (7-17); Calcium 8.3 mg/dl (8.4-10.2); Carbon Dioxide 28 mmol/L (22-30); Chloride 102 mmol/L (98-107); Estimated Creatinine Clearance 53 ml/min; Glucose 88 mg/dl (70-99); Potassium 3.2 mmol/L (3.5-5.1); Sodium 137 mmol/L (135-145); eGFR > 60.00
[2024-06-29] MEDS: PROTONIX 40 MG PO (08:15)
[2024-06-29] MEDS: LIDOCAINE 4% PATCH 1 PATCH TOPICAL (08:16)
[2024-06-29] MEDS: LASIX 20 MG IV ×2 (08:17→15:26)
[2024-06-29] MEDS: ZESTRIL 20 MG PO ×2 (08:17→19:24)
--- NOTE | 2024-06-29 08:30 | PTCARENOTE ---
Pt AAOx3 forgetful. Pt on RA lungs diminished. Purewick in place rectal trumpet in pace. Kala at bedside DR Strickland and Cards spoke with pt.
[2024-06-29] MEDS: KCL 40 MEQ PO ×2 (08:53→16:30)
--- NOTE | 2024-06-29 09:45 | W.PN.HOSP.TC ---
Addendum entered and electronically signed by Rigo Frederick MD 06/29/24 09:55:
Hypokalemia -replete
Original Note:
Today's Communication/Plan
-
CW ABX
Consult Cards
Add amlodipine
Transfuse 1 unit PRBC
CM to start looking for rehab placement
Assessment / Plan
Assessment / Plan
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
# osteomyelitis based on clinical and radiological data
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
# severe Sepsis
- MR Coccyx - pos for osteo
- Wound swab gram stain GPC, GNR; cx Strep Species
-Continue IV Ceft/flagyl per ID - Will need 6 weeks IV abx
-Infectious disease following
-Tylenol as needed for fever or pain
-Wound care following
- Normalized WBC
- dw plastics yesterday - he wants to the situation to be optimized with any Antibiotics and nutrition and more importantly mobility of the right hip issue resolved. The reason for the decubitus ulcer seems to be the right hip severe arthritis
precluding her from ambulating and prolonged sitting. She is in a Catch-22. I had a long discussions with the patient-advised her to go to rehab and get optimized with the physical abilities and touch base with her orthopedics for role of surgery
which might help her to offload her bottom and give a chance to heal. Plastics also suggested to optimize blood pressure close to 10 for healing purposes.
Discussed with ID-going to write her up for 6 weeks of antibiotics and follow-up.
# Presyncope 06/26 - possible vasovagal in nature .Resolved and didnt recur.
#Syncopal episode during this admission
- most likely vasovagal with diarrhea; also happened with puncture site when blood was taken on admission
� ECHO with normal EF
- ct head unremarkable for acute findings
#Hyponatremia
-mild
-ctm
# Hypoxia secondary to pleural effusion-resolved
# Left pleural efffusion -transudative-suspect secondary to acute diastolic CHF decompensation
- BNP in low 2000 - based on age criteria will rule in. No lower extremity edema. No JVD.
-- ECHO with normal EF and Mod AR.
- - add low dose lasix and follow
- Optimize BP and HH.
-Consult cardiology
# Anemia normocytic-severe
# Heme positive brown stools
-Iron studies does not suggest iron deficiency
-GI input noted-patient declining endoscopic eval and the signed off.
-Patient agreed for transfusion -got one unit 06/27 with improvement in HH. Transfuse 1 more unit of blood to keep hemoglobin closer to 10
- ctm
#hypertension suspect essential and untreated - remains high despite starting on antihypertensive treatment
-started on nifedipine on this admission -with vasovagal reactions switched to ACEI -increased the dose to twice daily . Will avoid BB due to syncopal reactions.
- Will add amlodipine
# History of colon cancer
-Status post colon resection
#DVT prophylaxis
-Lovenox
#CODE status
-DNR/DNI
Discussed with RN
DW ID today
Total time spent on today's encounter was 52 minutes which included time spent in counseling the patient/family regarding diagnosis and treatment plan as listed above, goals of care, and symptom management. Case was discussed with nursing staff,
specialists, and care coordinators/case management. All labs and imaging personally reviewed by me. Remainder the time spent in detailed review of previous records, lab data, imaging, and other medical provider documentation.
Anticipated Discharge: 24 - 48 hours
Subjective/Interval History
-
Date of Service: June 29, 2024
Pain from sacral decub is ok.
No fever or chills.
S/P L thora - denies SOB .Off of O2.
Objective Data
-
Labs:
Laboratory Results
06/29/24
04:37
WBC 10.2
Hgb 9.3 L
Hct 27.3 L
Plt Count 481 H
Sodium 137
Potassium 3.2 L
Chloride 102
Carbon Dioxide 28
BUN 21 H
Creatinine 0.6
Glucose 88
Calcium 8.3 L
Vital Signs:
Vital Signs
Temp Pulse Resp BP Pulse Ox
98.4 F 64 14 168/52 92
06/29/24 04:26 06/29/24 08:17 06/29/24 04:00 06/29/24 08:17 06/29/24 04:00
I&O
06/28/24 06/29/24 06/30/24
06:59 06:59 06:59
Intake Total 690 / 690 240 / 240
Output Total 720 / 720 150 / 150
Balance -30 / -30 90 / 90
Review of Systems
-
Constitutional: Denies Fever
EENT: Denies Sore Throat
Respiratory: Denies Cough
Cardiac: Denies Chest Pain
Abdomen/GI: Denies Abdominal Pain, Nausea or Vomiting
Neuro: Denies Dizzy
Physical Exam
-
General: No Apparent Distress
HEENT: Moist Mucous Membranes
Respiratory: Clear to Auscultation
Cardiac: Regular Rhythm and S1/S2
GI: Soft
Neuro: AO x 3
Psych: Calm
Data Reviewed
-
Labs: Labs Reviewed by me
--- NOTE | 2024-06-29 11:23 | CON.CAR ---
Addendum entered and electronically signed by Kane Gallegos MD 06/29/24 16:49:
84 yo female admitted with sacral ulcer, osteo. We are consulted for acute HFPEF. She did receive IV fluids as therapy for her osteo. There is some edema and SOB. Also left pleural effusion s/p thora for 750 cc. Exam with RRR, I/IV diastolic
murmur at RUSB, 1+ LLE edema. Echo with EF 65-70%, moderate AR.
Acute HFPEF vs iatrogenic volume overload. Continue IV lasix. Replete K.
Original Note:
Consultation
Consultation Request
Date/Time Consultation Requested: 06/29/24919
Date/Time Consultation Performed: 06/29/24 113
Requesting Provider: Dr. Frederick
Performing Provider: Joellen MATTHEWS for Dr. Gallegos
Reason for Consultation: CHF
Medical History
-
Chief Complaint: sacral wound
History of Present Illness:
84 y/o female with hx colon cancer with hx radiation and right hip osteoarthritis who is here for evaluation of sacral ulcer which was noted to have a foul smell. She is diagnosed with osteomyelitis and is on IV ABX. We are consulted to evaluate for
heart failure. She denies any SOB, but on arrival to hospital noted to have moderate left pleural effusion, which was tapped yesterday for 750 ml. She has LE edema to left side, which is dependent. Her weight is typically 104 lbs and she is 107 lbs.
She did receive 4L of LR this hospitalization in setting of infection/wound. BP noted to be elevated and lisinopril was added this admit and amlodipine added today. She is getting diuresed with IV lasix and potassium is being replaced, as
hypokalemia has been noted. She is in no distress at the time of my assessment. Echo showed normal EF and moderate AR.
Past Medical History
Past Medical History: Cancer and Other (as above)
Social History
Tobacco: Non-Smoker
Family History
Family History: Reviewed & Not Pertinent
Allergies / Home Medications
Allergy/AdvReac Type Severity Reaction Status Date / Time
Penicillins Allergy Rash in Verified 06/22/24 10:48
her 30's
�Medication �Instructions �Recorded �Confirmed �Type
acetaminophen 500 mg tablet 1,000 mg PO Q6HPRN PRN mild pain 06/21/24 06/21/24 History
(Tylenol Extra Strength)
ciprofloxacin HCl 500 mg tablet 500 mg PO BID Infection 06/21/24 06/21/24 History
loperamide 2 mg capsule 4 mg PO QIDPRN PRN diarrhea 06/21/24 06/21/24 History
therapeutic multivitamin 1 tab PO DAILY Supplement 06/21/24 06/21/24 History
Review of Systems
-
History Source: Patient
All other systems: Negative unless noted
Musculoskeletal: Edema (as noted)
Skin: Other (sacral discomfort)
Physical Exam
Vital Signs
Temp Pulse Resp BP Pulse Ox
98.3 F 62 21 163/60 91
06/29/24 07:45 06/29/24 10:00 06/29/24 10:00 06/29/24 10:00 06/29/24 10:00
Lab Results
06/29/24 04:37
06/29/24 04:37
Troponin I 0.013 ng/ml 06/23/24 21:43
Mbj-S-Tyievjxaigb Pept 2040 pg/ml 06/26/24 04:46
Physical Exam
General: Well Developed and No Apparent Distress
HEENT: Normocephalic and Anicteric
Respiratory: Clear and Non Labored Respirations
Cardiac: Regular Rhythm
Musculoskeletal: Edema (LLE pitting dependent , mild)
Neuro: AO x 3
Psych: Calm
Impression / Plan
-
Sacral wound, osteomyelitis:
-on IV abx
-management per ID, primary. Plastics also consulted.
Acute HFpEF:
-denies SOB, but weight up, BNP up, and CXR as noted. She did receive 4L IVF this admit. Agree with IV diuresis, which requires intensive monitoring.
-Echo 06/23/24: LVEF is 65-70%, Moderate aortic regurgitation, Mild to moderate tricuspid regurgitation. PAP of 37 mmHg.
-pleural effusion noted and she is s/p left thoracentesis 750 ml 06/29/24
-dry weight 104 lbs per patient, currently 107 lbs
Hypokalemia:
-being replaced
-follow closely
HTN:
-new diagnosis
-monitor with addition of medicines
Moderate AR:
-monitor over time by echo
Data Reviewed
-
EKG: Tracing Personally Visualized and interpreted (NSR with LAFB)
Radiology: Report Reviewed by me (CXR 06/28/24: There is no pneumothorax in this postthoracentesis patient. There is minimal residual left pleural effusion There is minimal right pleural effusion)
Medical Tests (Nuc Med, Echo etc): Report Reviewed by me
Labs: Labs Reviewed by me
--- NOTE | 2024-06-29 11:24 | W.PN.ID1 ---
Date of Service
Date of Service: June 29, 2024
Today's Communication
Continue antibiotics. See below�
Assessment / Plan
# Acute leukocytosis
-Overall improved
# Diarrhea
-Resolved
-Follow wbc
# Stage IV coccyx decubitus wound
# Osteomyelitis of coccyx/sacrum
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
# Hx PCN allergy
- MRI pelvis c/w osteomyelitis tip of the sacrum deep to the ulcer
- Wound swab gram stain GPC, GNR; cx Strep species
- c/w ceftriaxone for 6 week course. Prescription given to CM.
- Continue PO metronidazole to complete 2 weeks.
Case discussed extensively with Plastic surgery. At this point in time, there are no plans for flap surgery. I discussed this with the patient and noted that she is somewhat in a Catch-22, as ongoing infection in the sacrum area may preclude
subsequent right hip replacement, which would only lead to more debility. Antibiotics may be helpful here, especially if it allows for her to ultimately have right hip surgery.
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
Colon cancer status post resection and radiation (2001)
Osteoarthritis of right hip, for eventual hip replacement
IBS
����������������������������������������������������������
Chief Complaint
-: Leukocytosis and Other (Stage IV sacral wound; osteomyelitis)
Subjective / Review of Systems
Review of Systems: No Fever and No Chills
Vital Signs / Physical Exam
Vital Signs
Vital Signs
Temp Pulse Resp BP Pulse Ox
98.3 F 62 21 163/60 91
06/29/24 07:45 06/29/24 10:00 06/29/24 10:00 06/29/24 10:00 06/29/24 10:00
Physical Exam
Constitutional: No Acute Distress, Comfortable, Non-toxic and Cachetic (Mild)
Cardiovascular: S1/S2; Negative S3/S4
Pulmonary: Non Labored
Gastrointestinal: Soft and Non Tender
Skin: Negative Rash or Jaundice
Wound: Other (Sacral/coccygeal wound; dressed.)
Neurological: Awake, Alert and Oriented
Psychological: Calm
Objective Data
Lab Data
Lab Results
06/29/24 04:37
06/29/24 04:37
ESR Cancelled 06/21/24 21:45
PT 14.4 Sec (11.4-14.6) 06/23/24 08:44
INR 1.14 06/23/24 08:44
APTT 30.2 Sec (23.4-35.0) 06/23/24 08:44
Estimated Creat Clear 53 ml/min 06/29/24 04:37
Lactic Acid 1.2 mmol/L (0.7-2.0) 06/23/24 21:43
Total Bilirubin 0.6 mg/dl (0.2-1.3) 06/23/24 08:44
AST 35 U/L (14-36) 06/23/24 08:44
ALT 16 U/L (0-35) 06/23/24 08:44
Alkaline Phosphatase 99 U/L (38-126) 06/23/24 08:44
C-Reactive Protein < 5.00 mg/L (0.0-10.00) 06/23/24 08:44
Most recent labs reviewed.
Micro Results:
06/28/24 11:00 Body Fluid Culture - Preliminary
Pleural Fluid No Growth After 18-24 Hours
Gram Stain - Preliminary
06/21/24 16:16 Blood Culture - Final
Blood/Venous No Growth - Final Report
06/24/24 02:27 Urine Culture - Final
Urine NO GROWTH
06/25/24 05:55 C. difficile GDH Antigen & Toxins - Final
Feces/Stool Negative for toxigenic C.difficile
06/21/24 17:42 Wound Culture - Final
Sacral Streptococcus species
Gram Stain - Final
Imaging:
06/23/2024 MRI pelvis: Osteomyelitis of the coccyx and inferior tip of the sacrum deep to the sacral decubitus ulcer. Severe arthrosis of the right hip with signal changes in the right femoral head that are most compatible with avascular necrosis.
Reactive/degenerative bone marrow edema in the right femoral head and neck and right superior acetabulum.
06/21/24 Sacrum/coccyx XRAY: On the lateral view, air density adjacent to the inferior tip of the coccyx, suggesting an adjacent wound. No gross evidence for bony destruction. Compression deformity of the L5 vertebral body, age uncertain with no
comparison examination available. Please correlate clinically.
Care Review
Plan reviewed with: Physician (Hospitalist)
--- NOTE | 2024-06-29 11:37 | CM ---
Addendum entered by TOMASZ Brown 06/29/24 13:46:
Spoke with Liyah from [facility] who asked for updates. Faxed all new clinical information to Liyah @ [phone]
Original Note:
Received message from Carley Mcdowell, who is patient's daughter. Placed a return call to her. Provided update to Carley to provide status of bed hold at [facility] (left message at facility to confirm bed hold) awaiting return call, and
plan (obtaining hopeful auth for SNF) when patient is close to being medically cleared. Patient's daughter expressed appreciation.
Plan: Case management will continue to follow and assist with discharge planning. SNF when stable. SNF when stable and auth is obtained.
[2024-06-29] MEDS: NORVASC 5 MG PO (11:48)
[2024-06-29] MEDS: STERILE WATER FOR INJECTION 20 ML IV (11:49)
[2024-06-29] MEDS: ROCEPHIN 2000 MG IV (11:50)
--- NOTE | 2024-06-29 12:02 | PN.CDI ---
CDI
- -
CDI:
Physician Documentation Request
Admit Date: 06/21/24 18:17
Dear Doctor Otoniel,
06/28 hospitalist progress notes states 'Anemia normocytic-severe. Heme positive brown stools.'
Patient received 1 unit PRBC 06/27
Based on the above, could you clarify, in your progress note, which of the following is the most likely type of anemia you are evaluating, monitoring and/or treating?
Acute blood loss anemia with baseline normocytic anemia
Normocytic anemia only
Other
Use of terms such as suspected, likely, concern for, or probable (associated with a specific diagnosis that is being evaluated, monitored, or treated as if it exists) are acceptable and can be coded in the inpatient setting, when documented at the
time of discharge.
Thank you,
Jackie Ortiz RN, BSN
CDI Specialist
tiger text
Please use your independent medical judgment in providing your response.
[2024-06-29] MEDS: MOTRIN 400 MG PO ×2 (12:14→23:09)
[2024-06-29] MEDS: LOVENOX 40 MG SC (17:57)
[2024-06-30] VITALS (12 sets, daily range): BP systolic 123–171; BP diastolic 44–88
--- NOTE | 2024-06-30 01:52 | PTCARENOTE ---
Report received from FOSTER Lemons.
Patient resting with eyes closed in bed, respirations even and unlabored.
Purewick & rectal trumpet in place. NSR on tele.
Call jose within reach.
[2024-06-30] MEDS: TYLENOL 650 MG PO ×4 (05:11→21:06)
[2024-06-30 06:01] LABS: Blood Urea Nitrogen 25 mg/dl (7-17); Calcium 8.3 mg/dl (8.4-10.2); Carbon Dioxide 30 mmol/L (22-30); Chloride 104 mmol/L (98-107); Estimated Creatinine Clearance 53 ml/min; Glucose 85 mg/dl (70-99); Sodium 141 mmol/L (135-145); eGFR > 60.00
--- NOTE | 2024-06-30 08:35 | W.PN.CD ---
Today's Communication / Plan
-
diuresis again today, then can transition to PRN
Impression / Plan
-
Sacral wound, osteomyelitis:
-on IV abx
-management per ID, primary. Plastics also consulted.
Acute HFpEF:
-denies SOB, but admission weight up, BNP up, and CXR as noted. She did receive 4L IVF this admit.
-Echo 06/23/24: LVEF is 65-70%, Moderate aortic regurgitation, Mild to moderate tricuspid regurgitation. PAP of 37 mmHg.
-exam today she appears close to euvolemic; would give one additional dose of diuretic today and then transition to PRN
-pleural effusion noted and she is s/p left thoracentesis 750 ml 06/29/24, lungs today with decreased BS on the left, consider repeat CXR to assess post-thora
Hypokalemia:
-being replaced, 4.0 today
-follow closely
HTN:
-new diagnosis
-monitor with addition of medicines
Moderate AR:
-monitor over time by echo
Physical Exam
Vital Signs/Labs
Vital Signs
Temp Pulse Resp BP Pulse Ox
36.8 C 61 12 146/49 91
06/30/24 07:38 06/30/24 06:00 06/30/24 06:00 06/30/24 06:00 06/30/24 06:00
06/29/24 04:37
06/30/24 05:08
PT 14.4 Sec (11.4-14.6) 06/23/24 08:44
INR 1.14 06/23/24 08:44
APTT 30.2 Sec (23.4-35.0) 06/23/24 08:44
Magnesium 2.0 mg/dl (1.6-2.3) 06/23/24 08:44
TSH 2.62 uIU/ml (0.47-4.68) 06/27/24 03:08
06/26/24
04:46
Bzc-M-Ziijrnvggko Pept 2039
Physical Exam
Constitutional: No acute distress and Comfortable
Cardiovascular: Rhythm & rate is regular, Pedal edema is absent, JVD pressure is normal, Systolic murmur absent and Diastolic murmur absent
Respiratory: Respiratory effort normal and Other (decreased BS on left)
Neuro/Psych: Alert, Oriented and AO x 3
Data Reviewed
-
Date of Service: June 30, 2024
Medical Decision Making: Reviewed Test Results and Test Interpretation
EKG: Tracing Personally Visualized and interpreted
Echo: Report Reviewed by me
X-Ray/CT/US/MRI/NUC/PET: Image Personally Visualized and interpreted
Labs: Labs Reviewed by me
--- NOTE | 2024-06-30 09:07 | W.PN.ID1 ---
Date of Service
Date of Service: June 30, 2024
Today's Communication
Continue antibiotics per
Assessment / Plan
# Acute leukocytosis
-Overall improved
# Diarrhea
-Resolved
-Follow wbc
# Stage IV coccyx decubitus wound
# Osteomyelitis of coccyx/sacrum
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
# Hx PCN allergy
- MRI pelvis c/w osteomyelitis tip of the sacrum deep to the ulcer
- Wound swab gram stain GPC, GNR; Cultures only with Strep species
- c/w ceftriaxone for 6 week course. Prescription given to CM.
- Continue PO metronidazole to complete 2 weeks.
Case discussed extensively with Plastic surgery. At this point in time, there are no plans for flap surgery.
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
Colon cancer status post resection and radiation (2001)
Osteoarthritis of right hip, for eventual hip replacement
IBS
����������������������������������������������������������
Chief Complaint
-: Leukocytosis and Other (Stage IV sacral wound; osteomyelitis)
Subjective / Review of Systems
Review of Systems: No Fever, No Chills and No Abdominal Pain
Vital Signs / Physical Exam
Vital Signs
Vital Signs
Temp Pulse Resp BP Pulse Ox
98.2 F 61 12 146/49 91
06/30/24 07:38 06/30/24 06:00 06/30/24 06:00 06/30/24 06:00 06/30/24 06:00
Physical Exam
Constitutional: No Acute Distress, Comfortable, Chronically Ill, Non-toxic and Cachetic (Mild)
Eyes: Sclera Anicteric
Cardiovascular: S1/S2; Negative S3/S4
Pulmonary: Non Labored
Gastrointestinal: Soft and Non Tender
Skin: Negative Rash or Jaundice
Wound: Other (Sacral/coccygeal wound; dressed.)
Neurological: Awake, Alert and Oriented
Psychological: Calm
Objective Data
Lab Data
Lab Results
06/29/24 04:37
06/30/24 05:08
ESR Cancelled 06/21/24 21:45
PT 14.4 Sec (11.4-14.6) 06/23/24 08:44
INR 1.14 06/23/24 08:44
APTT 30.2 Sec (23.4-35.0) 06/23/24 08:44
Estimated Creat Clear 53 ml/min 06/30/24 05:08
Lactic Acid 1.2 mmol/L (0.7-2.0) 06/23/24 21:43
Total Bilirubin 0.6 mg/dl (0.2-1.3) 06/23/24 08:44
AST 35 U/L (14-36) 06/23/24 08:44
ALT 16 U/L (0-35) 06/23/24 08:44
Alkaline Phosphatase 99 U/L (38-126) 06/23/24 08:44
C-Reactive Protein < 5.00 mg/L (0.0-10.00) 06/23/24 08:44
Most recent labs reviewed.
Micro Results:
06/28/24 11:00 Body Fluid Culture - Preliminary
Pleural Fluid No Growth After 18-24 Hours
Gram Stain - Preliminary
06/21/24 16:16 Blood Culture - Final
Blood/Venous No Growth - Final Report
06/24/24 02:27 Urine Culture - Final
Urine NO GROWTH
06/25/24 05:55 C. difficile GDH Antigen & Toxins - Final
Feces/Stool Negative for toxigenic C.difficile
06/21/24 17:42 Wound Culture - Final
Sacral Streptococcus species
Gram Stain - Final
Imaging:
06/23/2024 MRI pelvis: Osteomyelitis of the coccyx and inferior tip of the sacrum deep to the sacral decubitus ulcer. Severe arthrosis of the right hip with signal changes in the right femoral head that are most compatible with avascular necrosis.
Reactive/degenerative bone marrow edema in the right femoral head and neck and right superior acetabulum.
06/21/24 Sacrum/coccyx XRAY: On the lateral view, air density adjacent to the inferior tip of the coccyx, suggesting an adjacent wound. No gross evidence for bony destruction. Compression deformity of the L5 vertebral body, age uncertain with no
comparison examination available. Please correlate clinically.
[2024-06-30] MEDS: ZESTRIL 20 MG PO ×2 (09:19→20:06)
[2024-06-30] MEDS: PROTONIX 40 MG PO (09:19)
[2024-06-30] MEDS: FLAGYL 500 MG PO ×2 (09:20→16:57)
[2024-06-30] MEDS: LASIX 20 MG IV (09:20)
[2024-06-30] MEDS: NORVASC 5 MG PO (09:20)
[2024-06-30] MEDS: LIDOCAINE 4% PATCH TOPICAL (09:20)
--- NOTE | 2024-06-30 10:19 | W.PN.HOSP.TC ---
Today's Communication/Plan
-
needs PICC and insurance auth
Assessment / Plan
Assessment / Plan
pt is an 84 year old female
severe sepsis due to Stage IV coccyx decubitus with osteomyelitis--Concern for poor wound healing due to hx of XRT to pelvic bone-Continue IV Ceft/flagyl per ID - Will need 6 weeks IV abx--ordered PICC, will need SNF, but needs auth--apprec ID
- Dr. Otoniel swain plastics - he wants to the situation to be optimized with any Antibiotics and nutrition and more importantly mobility of the right hip issue resolved. The reason for the decubitus ulcer seems to be the right hip severe arthritis
precluding her from ambulating and prolonged sitting. She is in a Catch-22. I had a long discussions with the patient-advised her to go to rehab and get optimized with the physical abilities and touch base with her orthopedics for role of surgery
which might help her to offload her bottom and give a chance to heal. Plastics also suggested to optimize blood pressure close to 10 for healing purposes.
Discussed with ID-going to write her up for 6 weeks of antibiotics and follow-up.
Presyncope 06/26 - possible vasovagal in nature .Resolved and didn't recur--Syncopal episode during this admission- most likely vasovagal with diarrhea; also happened with puncture site when blood was taken on admission� ECHO with normal EF- ct head
unremarkable for acute findings
Hyponatremia-mild
Hypoxia secondary to pleural effusion-resolved-- Left pleural efffusion -transudative-suspect secondary to acute diastolic CHF decompensation- BNP in low 2000 - based on age criteria will rule in. No lower extremity edema. No JVD.-- ECHO with
normal EF and Mod AR. - - add low dose lasix and follow- Optimize BP and HH--apprec cards--diuresis
Anemia normocytic-severe-- Heme positive brown stools-Iron studies does not suggest iron deficiency--GI input noted-patient declining endoscopic eval and the signed off.--Patient agreed for transfusion -got one unit 06/27 with improvement in HH.
Transfuse 1 more unit of blood to keep hemoglobin closer to 10
hypertension suspect essential and untreated - remains high despite starting on antihypertensive treatment-started on nifedipine on this admission -with vasovagal reactions switched to ACEI -increased the dose to twice daily . Will avoid BB
due to syncopal reactions- Will add amlodipine
History of colon cancer--Status post colon resection
DVT prophylaxis
-Lovenox
CODE status--DNR/DNI
Anticipated Discharge: > 48 hours
Subjective/Interval History
-
Date of Service: June 30, 2024
pt without c/o
Objective Data
-
Labs:
Laboratory Results
06/30/24
05:08
Sodium 141
Potassium 4.0
Chloride 104
Carbon Dioxide 30
BUN 25 H
Creatinine 0.6
Glucose 85
Calcium 8.3 L
Vital Signs:
max temp for 24 hours
06/30/24
03:00
Temp 98.5 F
Vital Signs
Temp Pulse Resp BP Pulse Ox
98.2 F 61 12 146/49 91
06/30/24 07:38 06/30/24 06:00 06/30/24 06:00 06/30/24 06:00 06/30/24 06:00
I&O
06/29/24 06/30/24 07/01/24
06:59 06:59 06:59
Intake Total 240 / 240 250 / 250
Output Total 150 / 150 500 / 500
Balance 90 / 90 -250 / -250
Review of Systems
-
All other systems: Reviewed and negative
Physical Exam
-
General: Appears Chronically Ill and Cachectic
HEENT: Normocephalic and Atraumatic
Respiratory: Clear to Auscultation; Negative Wheezes or Rhonchi
Cardiac: Regular Rhythm and S1/S2; Negative Murmur
GI: Soft, Nontender, Nondistended and Normal Bowel Sounds
Musculoskeletal: No Clubbing, No Cyanosis and No Edema
Neuro: Awake and Alert
--- NOTE | 2024-06-30 11:17 | CM ---
Addendum entered by Melissa Johansen 06/30/24 14:22:
Patient referral sent to [facility] via [facility] and fax sent. Pending reference number [id number].
Original Note:
Patient seen at bedside. Per patient physician patient is for discharge back to SNF [facility]. Admissions/long term care social worker is Liyah Alexandre and her phone number is [phone]. CM left for Liyah and called to patient
daughter Carley; update provided. CM will start auth for [facility]. Per chart review facility does not appear to accept transfers over the weekend. Physician and daughter updated. CM will continue to follow for discharge planning needs.
Plan; SNF; return to facility pending auth
[2024-06-30] MEDS: ROCEPHIN 2000 MG IV (13:38)
[2024-06-30] MEDS: STERILE WATER FOR INJECTION 20 ML IV (13:38)
--- NOTE | 2024-06-30 15:38 | PTCARENOTE ---
Per clinical educator, Purewick removed and quick change pad placed. RT in place draining brown liquid stool, flushed to maintain patency. Wound care performed. Pt and daughter at bedside updated with plan of care. Pt with call jose in hand, ringing
appropriately.
[2024-06-30] MEDS: LOVENOX 40 MG SC (16:59)
[2024-06-30] MEDS: MOTRIN 400 MG PO (20:06)
[2024-06-30] MEDS: LIDOCAINE 4% PATCH 1 PATCH TOPICAL (21:06)
[2024-07-01] VITALS (13 sets, daily range): BP systolic 116–168; BP diastolic 43–70; BMI 17.4
[2024-07-01] MEDS: FLAGYL 500 MG PO ×3 (00:10→16:21)
[2024-07-01] MEDS: TYLENOL 650 MG PO ×4 (01:41→20:20)
--- NOTE | 2024-07-01 02:37 | PTCARENOTE ---
Pt requesting medication for pain in her right leg/hip/bottom (see MAR). Pt also requesting lidocaine patch to be changed for at night. Call jose within reach. Assessment care and vitals as charted.
[2024-07-01 05:28] LABS: Hematocrit 32.9 % (37.0-47.0); Hemoglobin 10.8 g/dL (12.0-16.0); Mean Corp Hgb Conc. 32.8 g/dL (33.0-37.0); Mean Corpuscular Hgb 27.8 pg (27.0-31.0); Mean Corpuscular Volume 84.6 fL (81.0-99.0); Mean Platelet Volume 8.3 fL (7.4-10.4); Platelet Count 484 10^3/uL (130-400); Red Blood Cell Count 3.89 10^6/uL (4.20-5.40); Red Cell Dist. Width 17.2 % (11.5-14.5); White Blood Cell Count 10.7 10^3/uL (4.8-10.8)
[2024-07-01 05:52] LABS: Blood Urea Nitrogen 26 mg/dl (7-17); Calcium 8.4 mg/dl (8.4-10.2); Carbon Dioxide 34 mmol/L (22-30); Chloride 100 mmol/L (98-107); Estimated Creatinine Clearance 50 ml/min; Glucose 88 mg/dl (70-99); Magnesium 1.4 mg/dl (1.6-2.3); Potassium 3.5 mmol/L (3.5-5.1); Sodium 141 mmol/L (135-145); eGFR > 60.00
--- NOTE | 2024-07-01 09:02 | W.PN.ID1 ---
Date of Service
Date of Service: July 01, 2024
Today's Communication
Continue antibiotics.
Assessment / Plan
# Acute leukocytosis
- resolved
# Diarrhea
-Resolved
-Follow wbc
# Stage IV coccyx decubitus wound
# Osteomyelitis of coccyx/sacrum
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
# Hx PCN allergy
- MRI pelvis c/w osteomyelitis tip of the sacrum deep to the ulcer
- Wound swab gram stain GPC, GNR; Cultures only with Strep species
- c/w ceftriaxone for 6 week course. Prescription given to CM.
- Continue PO metronidazole (d#10) to complete 2 weeks.
Case discussed extensively with Plastic surgery. At this point in time, there are no plans for flap surgery.
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
Colon cancer status post resection and radiation (2001)
Osteoarthritis of right hip, for eventual hip replacement
IBS
����������������������������������������������������������
Chief Complaint
-: Leukocytosis and Other (Stage IV sacral wound; osteomyelitis)
Subjective / Review of Systems
Review of Systems: No Fever and No Chills
Vital Signs / Physical Exam
Vital Signs
Vital Signs
Temp Pulse Resp BP Pulse Ox
98.0 F 76 21 156/64 89
07/01/24 07:55 07/01/24 06:00 07/01/24 06:00 07/01/24 06:00 07/01/24 00:33
Physical Exam
Constitutional: No Acute Distress, Comfortable, Chronically Ill, Non-toxic and Cachetic (Mild)
Eyes: Sclera Anicteric
Cardiovascular: S1/S2; Negative S3/S4
Pulmonary: Non Labored
Gastrointestinal: Soft and Non Tender
Skin: Negative Rash or Jaundice
Wound: Other (Sacral/coccygeal wound; dressed.)
Neurological: Awake, Alert and Oriented
Psychological: Calm
Objective Data
Lab Data
Lab Results
07/01/24 05:01
07/01/24 05:01
ESR Cancelled 06/21/24 21:45
PT 14.4 Sec (11.4-14.6) 06/23/24 08:44
INR 1.14 06/23/24 08:44
APTT 30.2 Sec (23.4-35.0) 06/23/24 08:44
Estimated Creat Clear 50 ml/min 07/01/24 05:01
Lactic Acid 1.2 mmol/L (0.7-2.0) 06/23/24 21:43
Total Bilirubin 0.6 mg/dl (0.2-1.3) 06/23/24 08:44
AST 35 U/L (14-36) 06/23/24 08:44
ALT 16 U/L (0-35) 06/23/24 08:44
Alkaline Phosphatase 99 U/L (38-126) 06/23/24 08:44
C-Reactive Protein < 5.00 mg/L (0.0-10.00) 06/23/24 08:44
Most recent labs reviewed.
Micro Results:
06/28/24 11:00 Body Fluid Culture - Preliminary
Pleural Fluid No Growth After 48 Hours
Gram Stain - Preliminary
06/21/24 16:16 Blood Culture - Final
Blood/Venous No Growth - Final Report
06/24/24 02:27 Urine Culture - Final
Urine NO GROWTH
06/25/24 05:55 C. difficile GDH Antigen & Toxins - Final
Feces/Stool Negative for toxigenic C.difficile
06/21/24 17:42 Wound Culture - Final
Sacral Streptococcus species
Gram Stain - Final
Imaging:
06/23/2024 MRI pelvis: Osteomyelitis of the coccyx and inferior tip of the sacrum deep to the sacral decubitus ulcer. Severe arthrosis of the right hip with signal changes in the right femoral head that are most compatible with avascular necrosis.
Reactive/degenerative bone marrow edema in the right femoral head and neck and right superior acetabulum.
06/21/24 Sacrum/coccyx XRAY: On the lateral view, air density adjacent to the inferior tip of the coccyx, suggesting an adjacent wound. No gross evidence for bony destruction. Compression deformity of the L5 vertebral body, age uncertain with no
comparison examination available. Please correlate clinically.
--- NOTE | 2024-07-01 09:36 | W.PN.CD ---
Today's Communication / Plan
-
-Replace magnesium
-Start valsartan 40 mg once a day. Continue amlodipine 5 mg once a day
-Discontinue IV Lasix. Use as needed 20 mg p.o.
Impression / Plan
-
Sacral wound, osteomyelitis:
-on IV abx
-management per ID, primary. Plastics also consulted.
Acute HFpEF:
-Appears to be euvolemic at this time.
-Echo 06/23/24: LVEF is 65-70%, Moderate aortic regurgitation, Mild to moderate tricuspid regurgitation. PAP of 37 mmHg.
-pleural effusion noted and she is s/p left thoracentesis 750 ml 06/29/24
-Lasix only as needed. Patient is already at her baseline
Hypokalemia:
-being replaced, 3.5 today
-follow closely
HTN:
-Remains elevated on multiple recordings.
-Remained elevated despite being on amlodipine 5 mg once a day
-Will start her on valsartan 40, especially with her hypokalemia.
-Further uptitration or addition of other drugs as an outpatient.
Moderate AR:
-monitor over time by echo
Hypomagnesemia.
-Replace magnesium.
Physical Exam
Vital Signs/Labs
Vital Signs
Temp Pulse Resp BP Pulse Ox
98.0 F 76 21 156/64 89
07/01/24 07:55 07/01/24 06:00 07/01/24 06:00 07/01/24 06:00 07/01/24 00:33
06/30/24 07/01/24 07/02/24
06:59 06:59 06:59
Actual Weight 45.9 kg
07/01/24 05:01
07/01/24 05:01
PT 14.4 Sec (11.4-14.6) 06/23/24 08:44
INR 1.14 06/23/24 08:44
APTT 30.2 Sec (23.4-35.0) 06/23/24 08:44
Magnesium 1.4 mg/dl (1.6-2.3) L 07/01/24 05:01
TSH 2.62 uIU/ml (0.47-4.68) 06/27/24 03:08
06/26/24
04:46
[id number] Pept 2039
Physical Exam
Constitutional: No acute distress and Comfortable
EENT: Anicteric and Moist mucous membranes
Cardiovascular: Rhythm & rate is regular, Pedal edema is absent and JVD pressure is normal
Respiratory: Respiratory effort normal, Lungs clear to auscul. and Wheeze Absent
GI: Soft, Distention absent, Non tender and Normal bowel sounds
Neuro/Psych: Alert, Oriented and AO x 3
Data Reviewed
-
Date of Service: July 01, 2024
Medical Decision Making: Reviewed Test Results and Independent Historian Assessment
EKG: Tracing Personally Visualized and interpreted
Echo: Report Reviewed by me
Labs: Labs Reviewed by me
Old Records: Reviewed
[2024-07-01] MEDS: PROTONIX 40 MG PO (10:08)
[2024-07-01] MEDS: LASIX 20 MG IV (10:08)
[2024-07-01] MEDS: ZESTRIL 20 MG PO ×2 (10:08→20:21)
[2024-07-01] MEDS: NORVASC 5 MG PO ×2 (10:08→16:21)
--- NOTE | 2024-07-01 10:46 | W.PN.HOSP.TC ---
Today's Communication/Plan
-
See above
TX to tele if no presyncope with PT tx
Assessment / Plan
Assessment / Plan
pt is an 84 year old female
severe sepsis due to Stage IV coccyx decubitus with osteomyelitis--Concern for poor wound healing due to hx of XRT to pelvic bone-Continue IV Ceft/flagyl per ID - Will need 6 weeks IV abx-- will need SNF, but needs auth--apprec ID
dw plastics - he wants to the situation to be optimized with any Antibiotics and nutrition and more importantly mobility of the right hip issue resolved. The reason for the decubitus ulcer seems to be the right hip severe arthritis precluding her
from ambulating and prolonged sitting. She is in a Catch-22. I had a long discussions with the patient-advised her to go to rehab and get optimized with the physical abilities and touch base with her orthopedics for role of surgery which might
help her to offload her bottom and give a chance to heal. Plastics also suggested to optimize blood pressure close to 10 for healing purposes.
ID following-going to write her up for 6 weeks of antibiotics and follow-up.
Presyncope 06/26 - possible vasovagal in nature .Resolved and didn't recur--Syncopal episode during this admission- most likely vasovagal with diarrhea; also happened with puncture site when blood was taken on admission� ECHO with normal EF- ct head
unremarkable for acute findings
Hyponatremia-resolved
Hypoxia secondary to pleural effusion-resolved-- Left pleural efffusion -transudative-suspect secondary to acute diastolic CHF decompensation- BNP in low 2000 - based on age criteria will rule in. No lower extremity edema. No JVD.-- ECHO with
normal EF and Mod AR. - - add low dose lasix and follow- Optimize BP and HH--apprec cards--diuresis per cards- lost 6lbs
Anemia normocytic-severe-- Heme positive brown stools-Iron studies does not suggest iron deficiency--GI input noted-patient declining endoscopic eval and the signed off.--Patient agreed for transfusion -got one unit 06/27 with improvement in HH.
Transfused 2 more unit of blood to keep hemoglobin closer to 10
hypertension suspect essential and untreated - remains high despite starting on antihypertensive treatment-started on nifedipine on this admission -with vasovagal reactions switched to ACEI -increased the dose to twice daily . Will avoid BB
due to syncopal reactions- added amlodipine.Improving
History of colon cancer--Status post colon resection
DVT prophylaxis
-Lovenox
CODE status--DNR/DNI
Anticipated Discharge: > 48 hours
Subjective/Interval History
-
Date of Service: July 01, 2024
Making good urine with Lasix.
Breathing comfortable. Remains off of oxygen.
No dizziness or lightheadedness currently.
Encouraged her to be out of bed; sit in the chair.
Objective Data
-
Labs:
Laboratory Results
07/01/24
05:01
WBC 10.7
Hgb 10.8 L
Hct 32.9 L
Plt Count 484 H
Sodium 141
Potassium 3.5
Chloride 100
Carbon Dioxide 34 H
BUN 26 H
Creatinine 0.6
Glucose 88
Calcium 8.4
Vital Signs:
Vital Signs
Temp Pulse Resp BP Pulse Ox
98.0 F 76 21 156/64 89
07/01/24 07:55 07/01/24 06:00 07/01/24 06:00 07/01/24 06:00 07/01/24 00:33
I&O
06/30/24 07/01/24 07/02/24
06:59 06:59 06:59
Intake Total 250 / 250 740 / 740
Output Total 500 / 500 950 / 950
Balance -250 / -250 -210 / -210
Review of Systems
-
All other systems: Reviewed and negative
Physical Exam
-
General: No Apparent Distress
HEENT: Moist Mucous Membranes
Respiratory: Non Labored Respirations; Negative Accessory Resp Muscle Use
Cardiac: Regular Rhythm and S1/S2
Neuro: AO x 3
Data Reviewed
-
Labs: Labs Reviewed by me
--- NOTE | 2024-07-01 11:34 | W.PN.UPDATE ---
Update Note
Progress Note Update
Patient is already started on lisinopril 20 mg twice a day. Blood pressure is still suboptimal. We will increase amlodipine to 10 mg once a day and discontinue valsartan.
Supplement magnesium and potassium as needed.
[2024-07-01] MEDS: ROCEPHIN 2000 MG IV (11:55)
[2024-07-01] MEDS: STERILE WATER FOR INJECTION 20 ML IV (11:55)
[2024-07-01] MEDS: MAGNESIUM SULFATE 102 GRAMS IV (12:09)
[2024-07-01] MEDS: IMODIUM 2 MG PO (17:15)
[2024-07-01] MEDS: LOVENOX 40 MG SC (17:15)
--- NOTE | 2024-07-01 17:35 | PTCARENOTE ---
Pt's rectal tube causing great discomfort, leaking, removed this afternoon. Pt continues with soft/loose brown stools. Plan discussed with attending MD Dr. Frederick, will order stool for WBCs and PRN Immodium. Pt and daughter in agreement. Pt coughing
on thin water with pill while sidelying this afternoon, discussed possibly taking meds in puree , pt agreeable. Pt did agree to stand at bedside to increase activity, was mildly orthostatic and felt slightly lightheaded, encouraged continuing to
increase activity to build strength as able. Pt and daughter verbalized understanding. Call jose in reach, safe environment maintained.
[2024-07-01] MEDS: LIDOCAINE 4% PATCH 1 PATCH TOPICAL (21:18)
[2024-07-02] VITALS (17 sets, daily range): BP systolic 92–147; BP diastolic 46–92; BMI 17.1
[2024-07-02] MEDS: FLAGYL 500 MG PO ×3 (00:18→17:23)
[2024-07-02] MEDS: TYLENOL 650 MG PO ×4 (00:20→17:26)
--- NOTE | 2024-07-02 01:29 | PTCARENOTE ---
Pt compliant with Q2 turns. Pt requesting Tylenol for discomfort in right hip, with positive results. Wound care done. Call jose within reach. Assessment care and vitals as documented.
[2024-07-02 05:40] LABS: % Basophils 0.5 % (0-2); % Eosinophils 2.1 % (0-6); % Immature Granulocytes 0.6 % (0-0.5); % Lymphocytes 5.1 % (20.5-51.1); % Monocytes 6.9 % (1.7-9.3); % Neutrophils 84.8 % (42.2-75.2); Absolute Basophils 0.1 10^3/uL (0-0.2); Absolute Eosinophils 0.2 10^3/uL (0-0.7); Absolute Immature Granulocytes 0.1 10^3/uL (0-0.05); Absolute Lymphocytes 0.6 10^3/uL (1.2-3.4); Absolute Monocytes 0.8 10^3/uL (0.1-0.6); Absolute Neutrophils 9.2 10^3/uL (1.4-6.5); Hemoglobin 10.8 g/dL (12.0-16.0); Mean Corp Hgb Conc. 33.8 g/dL (33.0-37.0); Mean Corpuscular Hgb 28.4 pg (27.0-31.0); Mean Corpuscular Volume 84.2 fL (81.0-99.0); Mean Platelet Volume 8.5 fL (7.4-10.4); Nucleated Red Blood Cells % 0 %; Platelet Count 459 10^3/uL (130-400); Red Cell Dist. Width 17.2 % (11.5-14.5); White Blood Cell Count 10.9 10^3/uL (4.8-10.8)
[2024-07-02 05:59] LABS: Blood Urea Nitrogen 30 mg/dl (7-17); Calcium 8.4 mg/dl (8.4-10.2); Carbon Dioxide 33 mmol/L (22-30); Chloride 98 mmol/L (98-107); Estimated Creatinine Clearance 49 ml/min; Glucose 90 mg/dl (70-99); Magnesium 1.7 mg/dl (1.6-2.3); Potassium 3.3 mmol/L (3.5-5.1); Sodium 138 mmol/L (135-145); eGFR > 60.00
--- NOTE | 2024-07-02 08:24 | W.PN.CD ---
Today's Communication / Plan
-
-Replace magnesium and potassium
-Will start spironolactone 25 mg once a day
Impression / Plan
-
Sacral wound, osteomyelitis:
-on IV abx
-management per ID, primary. Plastics also consulted.
Acute HFpEF:
-Appears to be euvolemic at this time.
-Echo 06/23/24: LVEF is 65-70%, Moderate aortic regurgitation, Mild to moderate tricuspid regurgitation. PAP of 37 mmHg.
-pleural effusion noted and she is s/p left thoracentesis 750 ml 06/29/24
-Lasix only as needed. Patient is already at her baseline
Hypokalemia:
-being replaced, 3.3 today
-Will add spironolactone 25 mg QD
-follow closely
HTN:
-Remains elevated on multiple recordings.
-on amlodipine now 10 mg once a day, Lisinopril 20 mg BID
-Further uptitration or addition of other drugs as an outpatient.
Moderate AR:
-monitor over time by echo
Hypomagnesemia.
-Replace magnesium.
Physical Exam
Vital Signs/Labs
Vital Signs
Temp Pulse Resp BP Pulse Ox
98.0 F 83 16 135/58 93
07/02/24 03:20 07/02/24 06:00 07/02/24 06:00 07/02/24 06:00 07/01/24 20:31
07/01/24 07/02/24 07/03/24
06:59 06:59 06:59
Actual Weight 45.9 kg 45.2 kg
07/02/24 05:18
07/02/24 05:18
PT 14.4 Sec (11.4-14.6) 06/23/24 08:44
INR 1.14 06/23/24 08:44
APTT 30.2 Sec (23.4-35.0) 06/23/24 08:44
Magnesium 1.7 mg/dl (1.6-2.3) 07/02/24 05:18
TSH 2.62 uIU/ml (0.47-4.68) 06/27/24 03:08
06/26/24
04:46
Vqu-[id number] Pept 2039
Physical Exam
Constitutional: No acute distress and Comfortable
EENT: Anicteric and Moist mucous membranes
Cardiovascular: Rhythm & rate is regular, Pedal edema is absent, JVD present and Systolic murmur present
Respiratory: Respiratory effort normal, Wheeze Absent and Crackles Absent
GI: Soft, Non tender and Normal bowel sounds
Neuro/Psych: Alert, Oriented and AO x 3
Data Reviewed
-
Date of Service: July 02, 2024
Medical Decision Making: Reviewed Test Results, Independent Historian Assessment, Test Interpretation and Review of Case with other Provider
EKG: Tracing Personally Visualized and interpreted
Echo: Report Reviewed by me
Labs: Labs Reviewed by me
Old Records: Reviewed
[2024-07-02] MEDS: KCL 40 MEQ PO (08:50)
[2024-07-02] MEDS: PROTONIX 40 MG PO (08:50)
[2024-07-02] MEDS: NORVASC 10 MG PO (08:50)
[2024-07-02] MEDS: ZESTRIL 20 MG PO ×2 (08:50→21:04)
[2024-07-02] MEDS: ALDACTONE 25 MG PO (08:51)
--- NOTE | 2024-07-02 08:59 | W.PN.HOSP.TC ---
Addendum entered and electronically signed by Rigo Frederick MD 07/07/24 10:59:
Normocytic anemia only
Original Note:
Today's Communication/Plan
-
DC planning
Assessment / Plan
Assessment / Plan
pt is an 84 year old female
severe sepsis due to Stage IV coccyx decubitus with osteomyelitis--Concern for poor wound healing due to hx of XRT to pelvic bone-Continue IV Ceft/flagyl per ID - Will need 6 weeks IV abx-- will need SNF, but needs auth--apprec ID
Had dw plastics - he wants to the situation to be optimized with any Antibiotics and nutrition and more importantly mobility of the right hip issue resolved. The reason for the decubitus ulcer seems to be the right hip severe arthritis precluding
her from ambulating and prolonged sitting. She is in a Catch-22. I had a long discussions with the patient-advised her to go to rehab and get optimized with the physical abilities and touch base with her orthopedics for role of surgery which might
help her to offload her bottom and give a chance to heal. Plastics also suggested to optimize blood pressure close to 10 for healing purposes.
ID following-going to write her up for 6 weeks of antibiotics and follow-up.
Presyncope 06/26 - possible vasovagal in nature .Resolved and didn't recur--Syncopal episode during this admission- most likely vasovagal with diarrhea; also happened with puncture site when blood was taken on admission� ECHO with normal EF- ct head
unremarkable for acute findings
Hyponatremia-resolved
Hypokalemia -replete
Hypoxia secondary to pleural effusion-resolved-- Left pleural efffusion -transudative-suspect secondary to acute diastolic CHF decompensation- BNP in low 2000 - based on age criteria will rule in. No lower extremity edema. No JVD.-- ECHO with
normal EF and Mod AR. - - Optimize BP and HH--apprec cards--diuresis per cards- lost 6lbs.Changed lasix to prn.
Anemia normocytic-severe-- Heme positive brown stools-Iron studies does not suggest iron deficiency--GI input noted-patient declining endoscopic eval and the signed off.--Patient agreed for transfusion -got one unit 06/27 with improvement in HH.
Transfused 2 more unit of blood to keep hemoglobin closer to 10
hypertension suspect essential and untreated - remains high despite starting on antihypertensive treatment-started on nifedipine on this admission -with vasovagal reactions switched to ACEI -increased the dose to twice daily . Will avoid BB
due to syncopal reactions- added amlodipine -dose increased; Aldacton added.Improving
History of colon cancer--Status post colon resection
DVT prophylaxis
-Lovenox
CODE status--DNR/DNI
Tx to tele
Anticipated Discharge: Within 24 hours
Subjective/Interval History
-
Date of Service: July 02, 2024
Feels ok
Objective Data
-
Labs:
Laboratory Results
07/02/24
05:18
WBC 10.9 H
Hgb 10.8 L
Hct 32.0 L
Plt Count 459 H
Sodium 138
Potassium 3.3 L
Chloride 98
Carbon Dioxide 33 H
BUN 30 H
Creatinine 0.6
Glucose 90
Calcium 8.4
Vital Signs:
Vital Signs
Temp Pulse Resp BP Pulse Ox
98.0 F 72 15 147/57 93
07/02/24 03:20 07/02/24 08:00 07/02/24 08:00 07/02/24 08:00 07/01/24 20:31
I&O
07/01/24 07/02/24 07/03/24
06:59 06:59 06:59
Intake Total 770 / 770 1259 / 1259
Output Total 950 / 950 600 / 600
Balance -180 / -180 659 / 659
Review of Systems
-
Constitutional: Denies Fever
Respiratory: Reports Cough; Denies Trouble Breathing
Cardiac: Denies Chest Pain
Abdomen/GI: Denies Abdominal Pain, Nausea or Vomiting
Neuro: Denies Dizzy
Physical Exam
-
General: No Apparent Distress
HEENT: Moist Mucous Membranes
Respiratory: Clear to Auscultation
Cardiac: Regular Rhythm and S1/S2
Neuro: AO x 3
Data Reviewed
-
Labs: Labs Reviewed by me
--- NOTE | 2024-07-02 09:22 | W.PN.ID1 ---
Date of Service
Date of Service: July 02, 2024
Today's Communication
Continue current antibiotic course
Assessment / Plan
# Acute leukocytosis
- resolved
# Diarrhea
-Resolved
-Follow wbc
# Stage IV coccyx decubitus wound
# Osteomyelitis of coccyx/sacrum
- Concern for poor wound healing due to hx of XRT to pelvic bone
# Hx PCN allergy
- MRI pelvis c/w osteomyelitis tip of the sacrum deep to the ulcer
- Wound swab gram stain GPC, GNR; Cultures only with Strep species
- c/w ceftriaxone for 6 week course. Prescription given to CM.
- Continue PO metronidazole (d#12) to complete 2 weeks.
Case previously discussed with Plastic surgery. At this point in time, there are no plans for flap surgery.
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
Colon cancer status post resection and radiation (2001)
Osteoarthritis of right hip, for eventual hip replacement
IBS
����������������������������������������������������������
Chief Complaint
-: Leukocytosis and Other (Stage IV sacral wound; osteomyelitis)
Subjective / Review of Systems
Review of Systems: No Fever and No Chills
Vital Signs / Physical Exam
Vital Signs
Vital Signs
Temp Pulse Resp BP Pulse Ox
98.8 F 72 15 147/57 93
07/02/24 07:15 07/02/24 08:00 07/02/24 08:00 07/02/24 08:00 07/01/24 20:31
Physical Exam
Constitutional: No Acute Distress, Comfortable, Chronically Ill, Non-toxic and Cachetic (Mild)
Eyes: Sclera Anicteric
Cardiovascular: S1/S2; Negative S3/S4
Pulmonary: Non Labored
Gastrointestinal: Soft and Non Tender
Skin: Negative Rash or Jaundice
Wound: Other (Sacral/coccygeal wound; dressed.)
Neurological: Awake, Alert and Oriented
Psychological: Calm
Objective Data
Lab Data
Lab Results
07/02/24 05:18
07/02/24 05:18
ESR Cancelled 06/21/24 21:45
PT 14.4 Sec (11.4-14.6) 06/23/24 08:44
INR 1.14 06/23/24 08:44
APTT 30.2 Sec (23.4-35.0) 06/23/24 08:44
Estimated Creat Clear 49 ml/min 07/02/24 05:18
Lactic Acid 1.2 mmol/L (0.7-2.0) 06/23/24 21:43
Total Bilirubin 0.6 mg/dl (0.2-1.3) 06/23/24 08:44
AST 35 U/L (14-36) 06/23/24 08:44
ALT 16 U/L (0-35) 06/23/24 08:44
Alkaline Phosphatase 99 U/L (38-126) 06/23/24 08:44
C-Reactive Protein < 5.00 mg/L (0.0-10.00) 06/23/24 08:44
Most recent labs reviewed.
Micro Results:
07/01/24 18:37 Stool Leukocytes - Pending
Feces/Stool
06/28/24 11:00 Body Fluid Culture - Final
Pleural Fluid No Growth After 72 Hours
Gram Stain - Final
06/21/24 16:16 Blood Culture - Final
Blood/Venous No Growth - Final Report
06/24/24 02:27 Urine Culture - Final
Urine NO GROWTH
06/25/24 05:55 C. difficile GDH Antigen & Toxins - Final
Feces/Stool Negative for toxigenic C.difficile
06/21/24 17:42 Wound Culture - Final
Sacral Streptococcus species
Gram Stain - Final
Imaging:
06/23/2024 MRI pelvis: Osteomyelitis of the coccyx and inferior tip of the sacrum deep to the sacral decubitus ulcer. Severe arthrosis of the right hip with signal changes in the right femoral head that are most compatible with avascular necrosis.
Reactive/degenerative bone marrow edema in the right femoral head and neck and right superior acetabulum.
06/21/24 Sacrum/coccyx XRAY: On the lateral view, air density adjacent to the inferior tip of the coccyx, suggesting an adjacent wound. No gross evidence for bony destruction. Compression deformity of the L5 vertebral body, age uncertain with no
comparison examination available. Please correlate clinically.
[2024-07-02] MEDS: IMODIUM 2 MG PO ×2 (12:57→21:04)
--- NOTE | 2024-07-02 14:33 | CM ---
Patient from [facility] with Dx severe sepsis due to Stage IV coccyx decubitus with osteomyelitis, pre-syncope, anemia s/p transfusion. PT & OT 06/29 recommends skilled rehab.
Request for SNF auth with [employer] submitted by CM on 06/30- no response.
Email sent today to [employer] Post Acute Fast Track Request, requesting expediting SNF auth request.
As per CM notes 06/28, SNF can accept on Mon 07/03 once insurance approves.
Plan [address] at [facility] SN[facility] 07/03 once insurance approves.
[2024-07-02] MEDS: LOVENOX 40 MG SC (17:27)
[2024-07-02] MEDS: LIDOCAINE 4% PATCH 1 PATCH TOPICAL (21:05)
[2024-07-03] VITALS (7 sets, daily range): BP systolic 109–145; BP diastolic 46–59; BMI 17.9
[2024-07-03] MEDS: TYLENOL 650 MG PO ×2 (01:45→09:49)
[2024-07-03] MEDS: FLAGYL 500 MG PO ×2 (01:46→09:57)
--- NOTE | 2024-07-03 03:39 | PTCARENOTE ---
Addendum entered by Kimberly Haas RN 07/03/24 03:53:
RN noticing Pt having a macular patchy pink in color rash. Pt had no complaints of itchy or pain at rash site. Bed bath given. [facility] SENIOR HRIS ANALYST made aware.
Original Note:
Pt having complaints of pain and requesting Tylenol for 6/10 pain in hips and bottom. Education given on other medication options that could be available. Pt declined at this time for RN to reach out to [facility]. Pt continued to be hesitant when
needing to be Q2 turned, education given and Pt agreeable. Frequent repositioning done to help with pain management. Luke jose within reach. Assessment care and vitals as charted.
[2024-07-03 06:26] LABS: % Basophils 0.5 % (0-2); % Eosinophils 2.7 % (0-6); % Immature Granulocytes 0.7 % (0-0.5); % Lymphocytes 4.7 % (20.5-51.1); % Monocytes 8.1 % (1.7-9.3); % Neutrophils 83.3 % (42.2-75.2); Absolute Basophils 0.1 10^3/uL (0-0.2); Absolute Eosinophils 0.3 10^3/uL (0-0.7); Absolute Immature Granulocytes 0.1 10^3/uL (0-0.05); Absolute Lymphocytes 0.5 10^3/uL (1.2-3.4); Absolute Monocytes 0.8 10^3/uL (0.1-0.6); Absolute Neutrophils 8.1 10^3/uL (1.4-6.5); Hematocrit 30.3 % (37.0-47.0); Hemoglobin 10.2 g/dL (12.0-16.0); Mean Corp Hgb Conc. 33.7 g/dL (33.0-37.0); Mean Corpuscular Hgb 28.7 pg (27.0-31.0); Mean Corpuscular Volume 85.4 fL (81.0-99.0); Mean Platelet Volume 8.6 fL (7.4-10.4); Nucleated Red Blood Cells % 0 %; Platelet Count 453 10^3/uL (130-400); Red Blood Cell Count 3.55 10^6/uL (4.20-5.40); Red Cell Dist. Width 17.1 % (11.5-14.5); White Blood Cell Count 9.7 10^3/uL (4.8-10.8)
[2024-07-03 06:43] LABS: Blood Urea Nitrogen 33 mg/dl (7-17); Calcium 8.4 mg/dl (8.4-10.2); Carbon Dioxide 33 mmol/L (22-30); Chloride 100 mmol/L (98-107); Estimated Creatinine Clearance 51 ml/min; Glucose 86 mg/dl (70-99); Magnesium 1.7 mg/dl (1.6-2.3); Potassium 3.8 mmol/L (3.5-5.1); Sodium 139 mmol/L (135-145); eGFR > 60.00
--- NOTE | 2024-07-03 08:56 | CM ---
Addendum entered by Lenore Milan RN 07/03/24 13:28:
Seen by wound care nurse.
[facility] ( ph [phone] x [phone], fax [phone]); she is able to accept the patient today. She is aware IV Abx already given today. Faxed her PICC line info. The for nurse report
[phone] x [phone], fax [phone].
Met with patient and daughter; they agree with d/c today to [facility] by ambulance. IMM completed.
Plan [facility] at [facility] today by ambulance.
Original Note:
Patient from [facility] with Dx severe sepsis due to Stage IV coccyx decubitus with osteomyelitis, pre-syncope, anemia s/p transfusion. PT & OT recommend skilled rehab.
Received phone call from Dorothy Benites (ph [phone]); SNF at [facility] is approved, from 07/03 through 07/16. Auth # [id number]. NR 07/16 fax [phone].
Spoke with Lyndsay Pelletier [facility] Denisse at [facility] ( ph [phone] x [phone], fax [phone]); auth info provided. Informed her we are waiting fo to indicate if patient is ready for d/c today.
Plan [facility] at [facility] when medically ready.
--- NOTE | 2024-07-03 09:19 | W.PN.CD ---
Addendum entered and electronically signed by Gennaro Melo MD 07/03/24 10:54:
I saw and examined the patient.
The HIDE DROPPER's note was reviewed and I agree with the note except patient with mild rash . small erythematous areason back
Spironolactone is new so it has been stopped. will need to monitor BP and potassium
:
Original Note:
Today's Communication / Plan
-
continue current BP meds and monitor weekly BMP x 3 weeks as outpatient since now on spironolactone.
Impression / Plan
-
Sacral wound, osteomyelitis:
-on IV abx
-management per ID, primary.
Acute HFpEF:
-Appears to be euvolemic at this time.
-Echo 06/23/24: LVEF is 65-70%, Moderate aortic regurgitation, Mild to moderate tricuspid regurgitation. PAP of 37 mmHg.
-pleural effusion noted and she is s/p left thoracentesis 750 ml 06/29/24
-Lasix only as needed, she is at her baseline.
Hypokalemia:
-repleted and today K is 3.8.
-tolerating spironolactone 25 mg QD, continue.
-monitor outpatient BMP weekly for 3 weeks.
HTN:
-improved with adding spironolactone.
-continue Amlodipine 10 mg once a day, Lisinopril 20 mg BID.
Moderate AR:
-monitor over time by echo
Hypomagnesemia.
-repleted and now normal.
Physical Exam
Vital Signs/Labs
Vital Signs
Temp Pulse Resp BP Pulse Ox
98.5 F 72 17 144/58 90
07/03/24 08:24 07/03/24 06:00 07/03/24 06:00 07/03/24 06:00 07/03/24 01:05
07/02/24 07/03/24 07/04/24
06:59 06:59 06:59
Actual Weight 45.2 kg 47.3 kg
07/03/24 05:49
07/03/24 05:49
PT 14.4 Sec (11.4-14.6) 06/23/24 08:44
INR 1.14 06/23/24 08:44
APTT 30.2 Sec (23.4-35.0) 06/23/24 08:44
Magnesium 1.7 mg/dl (1.6-2.3) 07/03/24 05:49
TSH 2.62 uIU/ml (0.47-4.68) 06/27/24 03:08
06/26/24
04:46
Ydl-E-Csctepdrbrw Pept 2039
Physical Exam
Constitutional: No acute distress
EENT: Anicteric
Cardiovascular: Rhythm & rate is regular
Respiratory: Respiratory effort normal
GI: Soft, Non tender and Normal bowel sounds
Neuro/Psych: AO x 3
Other: Skin (warm, dry. sacral decub dressing intact)
Data Reviewed
-
Date of Service: July 03, 2024
Medical Decision Making: Reviewed Test Results
EKG: Tracing Personally Visualized and interpreted
Echo: Report Reviewed by me
Labs: Labs Reviewed by me
Old Records: Reviewed
[2024-07-03] MEDS: ZESTRIL 20 MG PO (09:41)
[2024-07-03] MEDS: PROTONIX 40 MG PO (09:41)
[2024-07-03] MEDS: NORVASC 10 MG PO (09:41)
[2024-07-03] MEDS: IMODIUM 2 MG PO (09:49)
[2024-07-03] MEDS: ROCEPHIN 2000 MG IV (09:50)
[2024-07-03] MEDS: STERILE WATER FOR INJECTION 20 ML IV (09:50)
[2024-07-03] MEDS: ALDACTONE PO (09:53)
--- NOTE | 2024-07-03 10:13 | W.PN.ID1 ---
Date of Service
Date of Service: July 03, 2024
Today's Communication
Continue ceftriaxone and metronidazole.
See below.
Assessment / Plan
# Stage IV coccyx decubitus wound
# Osteomyelitis of coccyx/sacrum
- Concern for poor wound healing due to hx of XRT to pelvic bone
# Hx PCN allergy
- MRI pelvis c/w osteomyelitis tip of the sacrum deep to the ulcer
- Wound swab gram stain GPC, GNR; Cultures only with Strep species
- Per Plastic surgery, pt needs optimization with abx, nutrition, mobility prior to flap closure.
- c/w ceftriaxone f2g IV q24h for 6 week course through 08/02/24.
Follow weekly CBC, CMP, CRP while on abx.
- Continue PO metronidazole (d#13) to complete 2 weeks.
-Dispo to SNF.
# Drug rash due to Aldactone
-Rash improving off Aldactone
# Acute leukocytosis
- resolved
# Diarrhea
-Resolved
- C. diff neg.
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
Colon cancer status post resection and radiation (2001)
Osteoarthritis of right hip, for eventual hip replacement
IBS
����������������������������������������������������������
Chief Complaint
-: Other (Stage IV sacral wound; osteomyelitis)
Subjective / Review of Systems
Per nurse developed rash last night.
Pt denies pruritic skin.
Vital Signs / Physical Exam
Vital Signs
Vital Signs
Temp Pulse Resp BP Pulse Ox
98.5 F 70 17 145/57 90
07/03/24 08:24 07/03/24 09:41 07/03/24 06:00 07/03/24 09:41 07/03/24 01:05
Physical Exam
Constitutional: No Acute Distress
Pulmonary: Clear
Gastrointestinal: Soft, Non Tender and Non Distended
Extremities: Negative Edema
Skin: Rash (scattered maculopapular rash on chest, upper abdomen)
Neurological: AO x 3
Lines: PICC (RUE intact)
Objective Data
Lab Data
Lab Results
07/03/24 05:49
07/03/24 05:49
ESR Cancelled 06/21/24 21:45
PT 14.4 Sec (11.4-14.6) 06/23/24 08:44
INR 1.14 06/23/24 08:44
APTT 30.2 Sec (23.4-35.0) 06/23/24 08:44
Estimated Creat Clear 51 ml/min 07/03/24 05:49
Lactic Acid 1.2 mmol/L (0.7-2.0) 06/23/24 21:43
Total Bilirubin 0.6 mg/dl (0.2-1.3) 06/23/24 08:44
AST 35 U/L (14-36) 06/23/24 08:44
ALT 16 U/L (0-35) 06/23/24 08:44
Alkaline Phosphatase 99 U/L (38-126) 06/23/24 08:44
C-Reactive Protein < 5.00 mg/L (0.0-10.00) 06/23/24 08:44
Most recent labs reviewed.
Micro Results:
07/01/24 18:37 Stool Leukocytes - Final
Feces/Stool
06/28/24 11:00 Body Fluid Culture - Final
Pleural Fluid No Growth After 72 Hours
Gram Stain - Final
06/21/24 16:16 Blood Culture - Final
Blood/Venous No Growth - Final Report
06/24/24 02:27 Urine Culture - Final
Urine NO GROWTH
06/25/24 05:55 C. difficile GDH Antigen & Toxins - Final
Feces/Stool Negative for toxigenic C.difficile
06/21/24 17:42 Wound Culture - Final
Sacral Streptococcus species
Gram Stain - Final
Imaging:
06/23/2024 MRI pelvis: Osteomyelitis of the coccyx and inferior tip of the sacrum deep to the sacral decubitus ulcer. Severe arthrosis of the right hip with signal changes in the right femoral head that are most compatible with avascular necrosis.
Reactive/degenerative bone marrow edema in the right femoral head and neck and right superior acetabulum.
06/21/24 Sacrum/coccyx XRAY: On the lateral view, air density adjacent to the inferior tip of the coccyx, suggesting an adjacent wound. No gross evidence for bony destruction. Compression deformity of the L5 vertebral body, age uncertain with no
comparison examination available. Please correlate clinically.
Care Review
Plan reviewed with: Physician (Dr. Cerrato)
--- NOTE | 2024-07-03 11:30 | WOUNDNOTE ---
[facility] RN note: Patient's coccyx ulcer white work cleaner but no smaller than 2 weeks ago. Surrounding skin with diffuse dull red. History of radiation. Dressing changed. Dr. Santana was in who viewed wound photo. Patient has perineal MASD from loose stools.
Patient having less loose stools. Miconazole and Calazime ointment being used. Patient turned to R semi side lying position. Heels off bed with pillow. Patient is on a [facility] air bed and she has an air chair cushion. PO intake fair. Will
follow as needed.
--- NOTE | 2024-07-03 11:59 | WOUNDNOTE ---
[facility] RN note: Patient for L heel OR debridement today by Dr. Charlton today. Changed heels dressings. Heels off bed with TruVue lite boots. Patient stated she gets her legs wrapped with compression by a home lymphedema therapist at home. Sacrum
intact with small dull blanchable red area and few resolving faint bruises. L anterior proximal foot with healing linear suha suspect from wraps. R anterior ankle with healing linear suha suspect from wraps. Padded areas with silicone border foam.
Patient is on a [facility] [employer] air bed. She helps with turning. Deane texted Britta Iglesias, Vascular AREA COORDINATOR asking if knee high Prakash wraps indicated. Await response.
--- NOTE | 2024-07-03 12:21 | W.PN.HOSP.TC ---
Addendum entered and electronically signed by Pavan Santana MD 07/04/24 15:59:
[id number]
Original Note:
Today's Communication/Plan
-
c/w ceftriaxone f2g IV q24h for 6 week course through 08/02/24.
Follow weekly CBC, CMP, CRP while on abx.
- Continue PO metronidazole (d#13) to complete 2 weeks.
F/u Plastics, Cards, ID, Orthopedics, GI, PCP outpatient
Assessment / Plan
Assessment / Plan
Constitutional: No Acute Distress and Comfortable
Eyes: No Conjunctival Hemorrhage and Sclera Anicteric
Cardiovascular: Regular Rate and S1/S2
Pulmonary: Clear
Gastrointestinal: Soft, Non Tender, Non Distended and Normal Bowel Sounds
Genito-Urinary: Negative CVA Tenderness
Extremities: Negative Edema
Wound: Other coccyx with scarred tissue, erythematous although improved from prior
pt is an 84 year old female
#severe sepsis due to Stage IV coccyx decubitus with osteomyelitis--Concern for poor wound healing due to hx of XRT to pelvic bone-Continue IV Ceft/flagyl per ID - Will need 6 weeks IV abx--
-Had dw plastics - he wants to the situation to be optimized with any Antibiotics and nutrition and more importantly mobility of the right hip issue resolved. The reason for the decubitus ulcer seems to be the right hip severe arthritis precluding
her from ambulating and prolonged sitting. Advised -her to go to rehab and get optimized with the physical abilities and touch base with her orthopedics for role of surgery which might help her to offload her bottom and give a chance to heal.
Plastics also suggested to optimize blood pressure close to 10 for healing purposes.
- c/w ceftriaxone f2g IV q24h for 6 week course through 08/02/24.
Follow weekly CBC, CMP, CRP while on abx.
- Continue PO metronidazole (d#13) to complete 2 weeks.
Presyncope 06/26 - possible vasovagal in nature .Resolved and didn't recur--Syncopal episode during this admission- most likely vasovagal with diarrhea; also happened with puncture site when blood was taken on admission� ECHO with normal EF- ct head
unremarkable for acute findings
Hyponatremia-resolved
Hypokalemia -replete
# Hypoxia secondary to pleural effusion-resolved-- Left pleural efffusion -transudative-suspect secondary to acute diastolic CHF decompensation- BNP in low 2000 - based on age criteria will rule in. No lower extremity edema. No JVD.-- ECHO with
normal EF and Mod AR. - - Optimize BP and HH--apprec cards--diuresis per cards- lost 6lbs.Changed lasix to prn.
Anemia normocytic-severe-- Heme positive brown stools-Iron studies does not suggest iron deficiency--GI input noted-patient declining endoscopic eval and the signed off.--Patient agreed for transfusion -got one unit 06/27 with improvement in HH. f/u
GI outpatient
hypertension suspect essential and untreated - remains high despite starting on antihypertensive treatment-started on nifedipine on this admission -with vasovagal reactions switched to ACEI -increased the dose to twice daily . Will avoid BB
due to syncopal reactions- added amlodipine -dose increased; Aldacton added.Improving
History of colon cancer--Status post colon resection
DVT prophylaxis
-Lovenox
CODE status--DNR/DNI
More than 30 minutes spent in discharge including
Final examination of the patient
Summarizing hospital stay
Instructions for continuing care to all relevant caregivers
Preparation of discharge records, prescriptions, and referral forms
Total time spent (35 in minutes):
Anticipated Discharge: Today
Subjective/Interval History
-
Date of Service: July 03, 2024
no acute events
Objective Data
-
Labs:
Laboratory Results
07/03/24
05:49
WBC 9.7
Hgb 10.2 L
Hct 30.3 L
Plt Count 453 H
Sodium 139
Potassium 3.8
Chloride 100
Carbon Dioxide 33 H
BUN 33 H
Creatinine 0.5 L
Glucose 86
Calcium 8.4
Vital Signs:
Vital Signs
Temp Pulse Resp BP Pulse Ox
98.2 F 75 17 136/59 90
07/03/24 11:42 07/03/24 10:00 07/03/24 10:00 07/03/24 10:00 07/03/24 01:05
I&O
07/02/24 07/03/24 07/04/24
06:59 06:59 06:59
Intake Total 1259 / 1259 280 / 280
Output Total 600 / 600
Balance 659 / 659 280 / 280
Review of Systems
-
History Source: Patient
All other systems: Not reviewed unless documented
Physical Exam
-
General: No Apparent Distress
HEENT: Moist Mucous Membranes
Respiratory: Clear to Auscultation
Cardiac: Regular Rhythm and S1/S2
Neuro: AO x 3
Data Reviewed
-
Diagnostic Radiology: Image personally visualized and interpreted and Report Reviewed by me
CT Scan: Image personally visualized and interpreted and Report Reviewed by me
MRI: Image personally visualized and interpreted and Report Reviewed by me
--- NOTE | 2024-07-03 12:28 | W.DS.TRANS ---
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
-
Discharge Instructions:
Discharge Diagnosis/Procedures severe sepsis due to Stage IV coccyx decubitus
with osteomyelitis
Diet Low Cholesterol,Low Fat
Activity As tolerated
Blood Work Follow weekly CBC, CMP, CRP while on abx
Instructions:
Stand-Alone Forms:
Changes to Home Medications: No
Discharge Medications:
DC Medications w/original date entered in [employer]
acetaminophen 500 mg tablet (Tylenol Extra Strength) 1,000 mg PO Q6HPRN PRN mild pain 06/21/24
loperamide 2 mg capsule 4 mg PO QIDPRN PRN diarrhea 06/21/24
therapeutic multivitamin 1 tab PO DAILY Supplement 06/21/24
amlodipine 10 mg tablet 10 mg PO DAILY #0 tabs 07/03/24
ceftriaxone 2 gram solution for injection 2,000 mg IV Q24H #0 ea 07/03/24
lisinopril 20 mg tablet 20 mg PO BID #0 tabs 07/03/24
loperamide 2 mg capsule 2 mg PO Q6HPRN PRN diarrhea #0 caps 07/03/24
metronidazole 500 mg tablet 500 mg PO Q8 #0 tabs 07/03/24
miconazole nitrate 2 % topical powder (Miconazorb AF) 1 applic topical BIDPRN PRN yeasty red skin #0 grams 07/03/24
pantoprazole 40 mg tablet,delayed release 40 mg PO DAILY #0 tabs 07/03/24
Home Medication Changes
no
Pending Results: No
--- NOTE | 2024-07-03 13:12 | PTCARENOTE ---
Pt rec'd from casino shift manager RN, plan discussed with mult members of care team, will dc patient this afternoon, rash appears to be improving. Meds and assessment as documented. Wound RN Mireya in to assess patient's wound. Pericare and wound care
provided by this RN multiple times this am. Plan for pickup time of 13:45 and transfer back to [facility]. Pt and daughter updated and in agreement.
--- NOTE | 2024-07-03 13:33 | WOUNDNOTE ---
WOC RN note: george Milan re: recommend air mattress at SNF d/t her stage 4 sacral/coccyx pressure injury.
--- NOTE | 2024-07-06 15:35 | PN.CDI ---
CDI
- -
CDI:
Physician Documentation Request
Admit Date: 06/21/24 18:17
Dear Doctor Otoniel,
06/28 hospitalist progress notes states 'Anemia normocytic-severe. Heme positive brown stools.'
Patient received 1 unit PRBC 06/27 and 1 unit on 06/29
Based on the above, could you clarify, in your progress note, which of the following is the most likely type of anemia you are evaluating, monitoring and/or treating?
Acute blood loss anemia with baseline normocytic anemia
Normocytic anemia only
Other
Use of terms such as suspected, likely, concern for, or probable (associated with a specific diagnosis that is being evaluated, monitored, or treated as if it exists) are acceptable and can be coded in the inpatient setting, when documented at the
time of discharge.
Thank you,
Jackie Ortiz RN, BSN
CDI Specialist
tiger text
Please use your independent medical judgment in providing your response.
== END 2024-07-03 14:43 | DRG 871 ==
LOC: IMU 18:17
PROVIDERS: Internal Medicine; Nurse Practitioner; Nurse Practitioner Family; Nurse Practitioner Gerontology; Radiology Diagnostic Radiology; Registered Nurse; ADMITTING PHYSICIAN Internal Medicine; CONSULT PHYSICIAN Internal Medicine; CONSULT PHYSICIAN Internal Medicine Gastroenterology; CONSULT PHYSICIAN Internal Medicine Infectious Disease; CONSULT PHYSICIAN Otolaryngology; EMERGENCY PHYSICIAN Emergency Medicine; FAMILY PHYSICIAN Nurse Practitioner
PROC: 30233N1 Transfusion of Nonautologous Red Blood Cells into Peripheral Vein, Percutaneous Approach (ICD-10-PCS; 2024-06-27)
PROC: 0W9B3ZZ Drainage of Left Pleural Cavity, Percutaneous Approach (ICD-10-PCS; 2024-06-28)
PROC: 02HV33Z Insertion of Infusion Device into Superior Vena Cava, Percutaneous Approach (ICD-10-PCS; 2024-06-30)
DX: A41.9 Sepsis, unspecified organism (principal); I50.31 Acute diastolic (congestive) heart failure; L89.154 Pressure ulcer of sacral region, stage 4; Z68.1 Body mass index [BMI] 19.9 or less, adult; E87.1 Hypo-osmolality and hyponatremia; J98.11 Atelectasis; M46.28 Osteomyelitis of vertebra, sacral and sacrococcygeal region; K92.1 Melena; J91.8 Pleural effusion in other conditions classified elsewhere; Z66 Do not resuscitate; R65.20 Severe sepsis without septic shock; E83.42 Hypomagnesemia; E87.6 Hypokalemia; D64.9 Anemia, unspecified; M16.11 Unilateral primary osteoarthritis, right hip; D72.828 Other elevated white blood cell count; K58.0 Irritable bowel syndrome with diarrhea; R63.6 Underweight; I08.0 Rheumatic disorders of both mitral and aortic valves; B95.5 Unspecified streptococcus as the cause of diseases classified elsewhere; R55 Syncope and collapse; R09.02 Hypoxemia; I11.0 Hypertensive heart disease with heart failure; L27.1 Localized skin eruption due to drugs and medicaments taken internally; T50.0X5A Adverse effect of mineralocorticoids and their antagonists, initial encounter; D75.839 Thrombocytosis, unspecified; Z92.3 Personal history of irradiation; Z92.21 Personal history of antineoplastic chemotherapy; Z90.49 Acquired absence of other specified parts of digestive tract; Z88.0 Allergy status to penicillin; Z85.038 Personal history of other malignant neoplasm of large intestine
CPT/HCPCS: 88305; 32555; 70450; 71045; 71046; 72197; 72220; 76604; 80048; 80053; 81003; 81015; 82607; 82728; 82746; 82962; 83540; 83550; 83605; 83615; 83735; 83880; 83986; 84100; 84157; 84443; 84484; 85014; 85018; 85025; 85027; 85045; 85610; 85652; 85730; 86140; 86141; 86850; 86900; 86901; 86920; 87015; 87040; 87070; 87077; 87086; 87205; 87324; 87449; 88112; 89055; 93005; 93306; 96365; 96366; 96367; 96375; 97116; 97162; 97530; 97535; 99285; A9575; P9016

== ENCOUNTER → 2024-07-28 13:39 | Outpatient (REF) | payer OTHER, SELFPAY | LOC: WOUND 13:39 | PROVIDERS: ATTENDING PHYSICIAN Surgery | DX: L89.154 Pressure ulcer of sacral region, stage 4 (principal); L59.8 Other specified disorders of the skin and subcutaneous tissue related to radiation; Y84.2 Radiological procedure and radiotherapy as the cause of abnormal reaction of the patient, or of later complication, without mention of misadventure at the time of the procedure; M16.11 Unilateral primary osteoarthritis, right hip; I73.00 Raynaud's syndrome without gangrene; K58.0 Irritable bowel syndrome with diarrhea; Z85.038 Personal history of other malignant neoplasm of large intestine | CPT/HCPCS: 99204 ==

== ENCOUNTER → 2024-08-18 13:08 | Outpatient (REF) | payer OTHER, SELFPAY | LOC: WOUND 13:08 | PROVIDERS: ATTENDING PHYSICIAN Surgery; FAMILY PHYSICIAN Nurse Practitioner Adult Health | DX: L89.154 Pressure ulcer of sacral region, stage 4 (principal); L59.8 Other specified disorders of the skin and subcutaneous tissue related to radiation; Y84.2 Radiological procedure and radiotherapy as the cause of abnormal reaction of the patient, or of later complication, without mention of misadventure at the time of the procedure; Z85.038 Personal history of other malignant neoplasm of large intestine; M16.11 Unilateral primary osteoarthritis, right hip; I73.00 Raynaud's syndrome without gangrene; K58.0 Irritable bowel syndrome with diarrhea | CPT/HCPCS: 99213 ==

== ENCOUNTER 2025-02-16 07:18 | Day surgery (SDC) | payer OTHER, SELFPAY ==
--- NOTE | 2025-02-16 14:54 | ITS.CL.IMPLP ---
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
Implant Loop
Procedure Report:
Date of Procedure: February 16, 2025.
Procedure: Insertable Loop Recorder Implant.
Indication: Unexplained recurrent syncope.
Performing physician: Tuan Fairchild MD, [facility].
Implant: Medtronic; Reveal LINQII; Model# [id number]; Serial# [id number].
Technique: The patient was prepped and draped in the usual fashion. A time-out was performed. No intravenous sedation was administered. Local anesthetic was applied to the left pre-pectoral subcutaneous tissue. Using the insertion kit an incision
was made left of the midline in the fourth intercostal space and the device was implanted subcutaneously and directed towards the nipple. Hemostasis was excellent. The skin was closed with steri-strips. The estimated blood loss was less than 1 ml.
There were no complications. No fluoroscopy. R waves measured 0.47 mV and P waves were visible.
Final Programming: Detections: Afib, tachy at 160 bpm, rosamaria at 30 bpm, pause at 3 sec.
Conclusion: Uncomplicated insertable loop implant.
Recommendation: Routine post-insertable loop care. The device is MRI conditional without a waiting period and up to 3 Danielle.
cc: Tala Sanchez NP and Gennaro Melo MD.
== END 2025-02-16 08:55 | disposition home or self-care (01) ==
LOC: CATH 07:18
PROVIDERS: ATTENDING PHYSICIAN Internal Medicine Cardiovascular Disease; FAMILY PHYSICIAN Internal Medicine; OTHER PHYSICIAN Internal Medicine Cardiovascular Disease
DX: Z09 Encounter for follow-up examination after completed treatment for conditions other than malignant neoplasm (principal); R55 Syncope and collapse; Z79.899 Other long term (current) drug therapy
CPT/HCPCS: 33285; C1764

== ENCOUNTER 2025-05-19 18:47 | Inpatient (IN) | payer OTHER, SELFPAY ==
[2025-05-19] VITALS (34 sets, daily range): BP systolic 73–191; BP diastolic 33–69; BMI 19.1
[2025-05-19 15:13] LABS: Glucose - Point of Care 121 mg/dl (70-99)
[2025-05-19 15:30] LABS: Hematocrit 21.7 % (37.0-47.0); Hemoglobin 7.2 g/dL (12.0-16.0); Mean Corp Hgb Conc. 33.2 g/dL (33.0-37.0); Mean Corpuscular Volume 84.1 fL (81.0-99.0); Platelet Count 469 10^3/uL (130-400); Red Cell Dist. Width 15.7 % (11.5-14.5)
[2025-05-19 15:33] LABS: INR 1.02; PT 13.7 Sec (11.4-14.6)
[2025-05-19 15:34] LABS: APTT 34.9 Sec (23.4-35.0)
[2025-05-19 15:41] LABS: ALT (SGPT) 21 U/L (0-35); AST (SGOT) 38 U/L (14-36); Albumin 2.6 g/dl (3.5-5.0); Alkaline Phosphatase 208 U/L (38-126); Blood Urea Nitrogen 43 mg/dl (7-17); Calcium 8.0 mg/dl (8.4-10.2); Carbon Dioxide 21 mmol/L (22-30); Chloride 98 mmol/L (98-107); Estimated Creatinine Clearance 32 ml/min; Glucose 117 mg/dl (70-99); Potassium 5.1 mmol/L (3.5-5.1); Sodium 128 mmol/L (135-145); Total Protein 5.1 g/dl (6.3-8.2); eGFR > 60.00
[2025-05-19] MEDS: NSS 1000 IV ×2 (15:51→22:18)
[2025-05-19] MEDS: TORADOL 15 MG IV (15:51)
[2025-05-19 15:55] LABS: Nucleated Red Blood Cells % 0 %
[2025-05-19] MEDS: MAXIPIME 1000 MG IV (16:11)
[2025-05-19] MEDS: VANCOCIN 200 IV (16:14)
--- NOTE | 2025-05-19 16:19 | ED.GENMED ---
History of Present Illness
General
Chief Complaint: Blood Pressure Problem
Source: patient, family and ambulance crew
Exam Limitations: clinical condition
Time Seen by Provider: 05/19/25 15:44
Nursing documentation reviewed up to this point in time: agreed with
History of Present Illness
History of Present Illness:
Patient is a 85-year-old female with a history of CAD, CHF, hypertension, chronic Jaimes, colon cancer and a large sacral decub presents for increase in sacral pain over the last couple of days. Patient apparently had been seen by palliative care
last week according to the daughter who is now at the bedside and they added oxycodone 5 mg 3 times a day as well as gabapentin for some generalized pain. Today patient has had some foul drainage from her wound. She has been receiving wound care
and it has been looking well until recently. Patient was not known to have a fever but she was hypotensive in the 70s for paramedics. She had gotten a dose of oxycodone at 1030 this morning. Patient was able to drink water today although she has
not been having much hydration over the last couple of days. Initially EMS stated that the patient is on hospice however daughter denies this. She says the patient is a DNR DNI but they are not do not hospitalize and she would like her to receive
antibiotics, is aware that the patient is likely septic and will require ICU admission and declines hospice consult at this time
Past History
Past History
ED Past Medical History: CAD, CHF, HTN and Hypercholesterolemia
ED Past Surgical History: Bowel resection and Cardiac
Social History
Tobacco: Non-smoker
Review of Systems
Review of Systems
Allergies reviewed?: Yes
Unable to obtain full review of systems at this time due to: due to acuity
All Other Systems: Not applicable
Phy Exam
Physical Exam
Physical Exam:
GENERAL: Alert , pale, ill-appearing, uncomfortable
EYE: pupils equal and reactive
NECK: Supple
ENT: o/p clr, dry mouth
CARDIAC: Regular rate and rhythm .
LUNGS: Clear breath sounds bilaterally, no acute respiratory distress, no wheezes/rales/rhonchi
ABDOMEN: Soft, without focal tenderness, no r/g, no cvat, normal bowel sounds
Sacral area: Patient has a 3 cm stage IV sacral decub leaking foul-smelling cloudy liquid
NEUROLOGICAL: Alert and oriented, no focal neuro deficits
SKIN: Warm and dry, skin intact.
MUSCULOSKELETAL: No edema, well perfused. neg romeo's sign
PSYCH: Normal and appropriate interaction.
Course
Orders/Labs/Results
Orders:
Orders
05/19/25 15:08
EKG [Electrocardiogram (*1)] Urgent
Reason for Study: Fatigue / Weakness
Other Reason for Exam: hypotension
05/19/25 15:09
EKG- Treatment ONCE
05/19/25 15:13
Complete Blood Count/With Diff Urgent
Comprehensive Metabolic Panel Urgent
PT/INR [Prothrombin Time] Urgent
PTT Urgent
05/19/25 15:44
0.9% Sodium Chloride 1000 ml [Nss] 1,000 ml IV BOLUS
Ketorolac [Toradol] 15 mg IV NOW STA
05/19/25 16:00
Lactic Acid Urgent
Blood Culture Q30M
SHALONDA Source: Blood/Venous
Specimen Description:
05/19/25 16:01
Blood Culture Q30M
SHALONDA Source: Blood/Venous
Specimen Description:
05/19/25 16:03
CT Abd/Pel (IV only)-DH only Urgent
Comment:
Reason For Exam: sacral decub, sepsis
HYDROmorphone [Dilaudid] 0.25 mg IV NOW STA
05/19/25 16:04
Cefepime HCl [Maxipime] 1,000 mg IV NOW STA
05/19/25 16:05
Vancomycin 1 Gram/200 ml [Vancocin] 1 gram in 200 ml IV NOW
05/19/25 16:08
Sterile Water [Sterile Water For Injection] 20 ml .ROUTE .STK-MED
05/19/25 17:15
NORepinephrine 4 MG/250 ML [Levophed] 4 mg in 250 ml IV PER PROTOCOL
Initial dose in mcg/min, then titrate:: 2
Titrate to keep:: MAP > 65 mmHg
Titrate by mcg/min:: 1-2 mcg/min
Frequency of titrations (minutes):: 5
Maximum dose in ICU in mcg/min:: 30
Maximum dose in IMU in mcg/min:: 8
Maximum dose in IVU in mcg/min:: 4
Begin to taper infusion when:: Remained at goal for 4hrs
Taper by mcg/min:: 1-2 mcg/min
Frequency of taper (minutes) if patient maintains goal:: 30
Taper to off?: Yes
If infusion off & no longer maintaining goal:: Contact Provider
05/19/25 17:19
CR Chest Portable - 1 View Urgent
Comment:
Reason For Exam: sepsis
Reason Study Needs to be Portable: Unable to Transport
05/19/25 17:21
Blood Bank Products [* Blood Bank Products] Urgent
Blood Bank Products: *Packed RBC Leuko(PRBC's)
Quantity: 2
Transfuse Today: Yes
Reason: Anemia
05/19/25 17:30
Type And Crossmatch [Type+Screen] Urgent
Wound Culture [Wound/Abscess/Other Culture] Urgent
SHALONDA Source: Abscess
Specimen Description:
Date Specimen was Collected: 05/19/25
Time Specimen was Collected: 16:58
05/19/25 18:02
0.9% Sodium Chloride 500 ml [Nss] 500 ml IV BOLUS
Abnormal Lab Results
05/19/25 05/19/25
15:08 15:13
WBC 29.4 H 10^3/uL
(4.8-10.8)
RBC 2.58 L 10^6/uL
(4.20-5.40)
Hgb 7.2 L g/dL
(12.0-16.0)
Hct 21.7 L %
(37.0-47.0)
RDW 15.7 H %
(11.5-14.5)
Plt Count 469 H 10^3/uL
(130-400)
Abs Immat Gran (auto) 0.5 H 10^3/uL
(0-0.05)
Absolute Neuts (auto) 27.8 H 10^3/uL
(1.4-6.5)
Absolute Lymphs (auto) 0.5 L 10^3/uL
(1.2-3.4)
Immature Gran % 1.6 H %
(0-0.5)
Neutrophils % 94.6 H %
(42.2-75.2)
Lymphocytes % 1.6 L %
(20.5-51.1)
Sodium 128 L mmol/L
(135-145)
Carbon Dioxide 21 L mmol/L
(22-30)
BUN 43 H mg/dl
(7-17)
Glucose 117 H mg/dl
(70-99)
Calcium 8.0 L mg/dl
(8.4-10.2)
AST 38 H U/L
(14-36)
Alkaline Phosphatase 208 H U/L
(38-126)
Total Protein 5.1 L g/dl
(6.3-8.2)
Albumin 2.6 L g/dl
(3.5-5.0)
POC Glucose 121 H mg/dl
(70-99)
05/19/25 15:13
05/19/25 15:13
Vital Signs
Initial and Last Documented VS:
Initial Vital Signs
Pulse Resp BP Pulse Ox
68 14 91/38 95
05/19/25 15:05 05/19/25 15:05 05/19/25 15:05 05/19/25 15:05
Last Documented Vital Signs
Temp Pulse Resp BP Pulse Ox
37.0 C 53 14 171/37 97
05/19/25 15:41 05/19/25 17:53 05/19/25 17:53 05/19/25 17:53 05/19/25 17:53
MDM/Problems Addressed
Differential Diagnosis Includes:
septic shock, anemia, overdose
MDM/Problems Addressed:
85-year-old female with a history of the chronic sacral decub and history of osteomyelitis
Presents with increasing pain to the sacrum and hypotension from her nursing facility today. Patient is not tolerating the oxycodone that was just recently added by palliative care. Her daughter is here and is able to give more history. Daughter
says that despite her mother being DNR and DNI she is not DNH and they would consider treating any infection if the wound is worse.
Patient sacral wound has never healed fully. She is unable to ambulate.
On exam she is hypotensive with a MAP of 50, afebrile, was awake enough to answer some questions and oriented to place and person, she has a foul-smelling discharge from her sacral wound which is stage IV
There are no surrounding skin changes
Patient's white count is 29,000 with a left shift, her lactate is normal, she has multiple additional lab abnormalities including elevated LFTs, hyponatremia
Her CT unfortunately shows a looks like a necrotizing infectionaround her sacral decub and to her pelvis
I had multiple conversations with the daughter about considering hospice consult and comfort care. It sounds as if ultimately she will consider hospice consult after her sister is able to arrive.
Surgery was consulted regarding the necrotizing infection and she will be placed in the ICU as we did need to initiate Levophed to support her pressure. I did consent her for blood. But it sounds as if the patient may be ultimately placed in
hospice
*Pulse Oximetry
SaO2: 97
Oxygen Mode of Delivery: Room air
Patient hypoxic: no
*Critical Care Note
Total Time (30-74mins, 75-104mins- exclusive of procedures): Not Applicable
ED Attending Note
-
Portions of this chart may have been created with voice recognition software.� Occasional wrong word or��sound alike� substitutions may have occurred due to the inherent limitations of voice recognition software.
Discharge Plan
Departure
Patient Disposition: Admit
Date of Disposition: 05/19/25
Time of Disposition: 17:50
Admit to: ICU
Presentation/result/management discussed w/ accepting MD/DO: Hospitalist
Patient with high blood pressure during this ER visit?: No
Condition: Critical
Discharge Problem:
Decubitus ulcer, stage 4 with infection, Septic shock
Prescriptions:
No Action
loperamide 2 mg Capsule
4 mg PO QIDPRN PRN (Reason: diarrhea)
therapeutic multivitamin Tablet
1 tab PO DAILY
acetaminophen [Tylenol Extra Strength] 500 mg Tablet
1,000 mg PO Q6HPRN PRN (Reason: mild pain)
loperamide 2 mg Capsule
2 mg PO Q6HPRN PRN (Reason: diarrhea) Qty: 0 0RF
miconazole nitrate [Miconazorb AF] 2 % Powder
1 applic topical BIDPRN PRN (Reason: yeasty red skin) Qty: 0 0RF
lidocaine [Lidocaine Pain Relief] 4 % Adhesive Patch,Medicated
1 patch TOPICAL BID PRN (Reason: pain)
tizanidine 2 mg Tablet
2 mg PO QHS PRN (Reason: diarrhea)
tramadol 50 mg Tablet
50 mg PO Q6H PRN (Reason: pain)
guar gum Packet
1 tbsp PO DAILY
ferrous sulfate 325 mg (65 mg iron) Tablet
325 mg PO DAILY
omeprazole 20 mg Capsule,Delayed Release(Dr/Ec)
20 mg PO DAILY
zinc oxide Cream
TOPICAL
nikwszyrp-yaxwecvsggfsu-ahazfd Cream
TOPICAL
Saccharomyces boulardii [Florastor] 250 mg Capsule
250 mg PO BID
escitalopram oxalate [Lexapro] 5 mg Tablet
5 mg PO DAILY
tizanidine 2 mg Capsule
2 mg PO Q8H PRN (Reason: Reduction Of Transepidermal Water Loss)
tramadol 100 mg Capsule,Er Biphase 24 Hr 25-75
100 mg PO DAILY
Interventions
Interventions:
*Risk Screen - Suicide Last Done: 05/19/25 15:33
*General Assessment Last Done: 05/19/25 15:27
*Neglect/Abuse Screening Last Done: 05/19/25 15:33
*ED- Fall Risk Assessment Last Done: 05/19/25 15:33
*ED COVID-19 Vaccine History Last Done: 05/19/25 15:33
ED- Cardiac Assessment Last Done: 05/19/25 15:39
ED- Neurological Assessment Last Done: 05/19/25 15:39
ED- Pulmonary Assessment Last Done: 05/19/25 15:39
Discharge Date and Time
Print Language: GAMBIAN
[2025-05-19] MEDS: LEVOPHED 250 IV (17:33)
--- NOTE | 2025-05-19 18:13 | HPS.HSE ---
Addendum entered and electronically signed by Andreina Fierro DO 05/19/25 20:08:
The patient is seen and examined. I have reviewed the patient with Rosi and agree with her history and physical assessment and plan of care as per below. I do lengthy discussion with the patient's daughter. She would like to proceed with ICU
level care and medical management at this time however does not want the patient to undergo any invasive procedures. Her sister is coming in tomorrow morning along with her grandchildren. They are discussing options including hospice and will
discuss that tomorrow morning pending the patient's clinical course overnight.
Blood pressure is 86/37, on pressure support pulse 63 temperature 97.8 respiratory rate 18 O2 sat 96% on room air
The patient is lethargic, somnolent
Heart rate is bradycardic in the 50s
Abdomen is soft nontender decreased bowel sounds
Neuro no focal neurologic deficits noted
WBC 29.4, hemoglobin 7.2, platelets 469
The patient is an 85-year-old with history of sacral decubitus ulceration, soft tissue gas in the presacral soft tissues and inferior left pelvic sidewall with concern for necrotizing soft tissue infection.
The concern is for septic shock related to this infection the family declines invasive surgical intervention however would like to proceed with high intensity medical management at this time.
-Admit to the ICU
- agree with plan of care as per below
-Tomorrow morning, the patient's other daughter will be available, and the family would like to address possible options including withdrawal of care and hospice pending her clinical course overnight.
DNR
Original Note:
Family Physician
-
Family Physician:
Chief Complaint
-
Worsening Sacral Wound
History of Present Illness
Patient is an 85 y/o female past medical history of a chronic sacral decubitus ulcer, depression and chronic pain who presents with worsening pain and foul drainage from her wound. Upon arrival to the emergency department patient was found to be
hypotensive. CT scan revealed concern for necrotizing infection of the sacral wound. Patient has been started on IV antibiotics and pressors in the emergency department. Hospitalist group was asked to evaluate the patient for admission to the
hospital.
Medical History
Past Medical History
Past Medical History: Reports Other
Additional Past Medical History:
Chronic Sacral Decubitus
Chronic Jaimes
Chronic Pain Syndrome
Depression
Colon Cancer
Past Surgical History: Reports Other
Additional Past Surgical History:
Colon Resection
Social History
Tobacco: Non-smoker
Alcohol: Occasional
Drug: None
Personal: Single
Living: Retirement ([facility])
Family History
Family History: Not pertinent
Allergies / Home Medications
Allergies reflects when Allergies were last updated in [employer].
Home Medications with original date entered in [facility]
Allergy/Medication List:
Allergies
Allergy/AdvReac Type Severity Reaction Status Date / Time
spironolactone (From Allergy Severe Rash Verified 05/19/25 16:21
Aldactone)
Penicillins Allergy Rash in Verified 05/19/25 16:20
her 30's
Home Medications
therapeutic multivitamin 1 tab PO DAILY Supplement 06/21/24
Saccharomyces boulardii 250 mg capsule (Florastor) 250 mg PO BID 02/16/25
ferrous sulfate 325 mg (65 mg iron) tablet 325 mg PO DAILY 02/16/25
lidocaine 4 % topical patch (Lidocaine Pain Relief) 1 patch topical HS 02/16/25
tizanidine 2 mg tablet 2 mg PO Q6HPRN PRN muscle spasm 02/16/25
tramadol 50 mg tablet 50 mg PO DAILY 02/16/25
acetaminophen 325 mg tablet 975 mg PO TID 05/19/25
diclofenac sodium 3 % topical gel 1 applic topical Q6HPRN PRN muscle spasm 05/19/25
docusate sodium 100 mg capsule (Colace) 100 mg PO DAILYPRN PRN constipation 05/19/25
escitalopram oxalate 10 mg tablet 10 mg PO DAILY 05/19/25
famotidine 20 mg tablet 20 mg PO DAILY 05/19/25
gabapentin 100 mg capsule 100 mg PO BID 05/19/25
guar gum 1 tbsp PO BID 05/19/25
lidocaine 4 % topical cream 1 applic topical BID 05/19/25
loperamide 2 mg capsule 4 mg PO Q6H PRN diarrhea 05/19/25
magnesium glycinate 200 mg PO HS 05/19/25
miconazole nitrate 2 % topical powder (Miconazorb AF) 1 applic topical BIDPRN PRN red skin @ kishan wound 05/19/25
oxycodone 5 mg tablet 5 mg PO Q6HPRN PRN severe pain 05/19/25
tizanidine 2 mg tablet 2 mg PO HS right leg cramping 05/19/25
tramadol 100 mg tablet,extended release 24 hr 100 mg PO HS 05/19/25
tramadol 50 mg tablet 50 mg PO Q6HPRN PRN breakthrough pain 05/19/25
zinc oxide 10 % topical cream 1 applic topical DAILYPRN PRN incontinence 05/19/25
zinc oxide 10 % topical cream 1 applic topical QPM 05/19/25
Review of Systems
-
Unable to obtain full review of systems at this time due to: Acuity (Patient non-verbal)
Physical Exam
Vital Signs
Vital Signs
Temp Pulse Resp BP Pulse Ox
98.6 F 53 14 171/37 97
05/19/25 15:41 05/19/25 17:53 05/19/25 17:53 05/19/25 17:53 05/19/25 17:53
Physical Exam
General: Appears Chronically Ill
HEENT: Anicteric and Other (Mucous Membranes are dry)
Respiratory: Clear and Non Labored Respirations
Cardiac: S1/S2, Regular Rhythm and Bradycardia (Slightly)
GI: Soft and Non Tender
Musculoskeletal: No Clubbing and No Cyanosis
Skin: Warm and Dry
Neuro: Other (Patient is unable to participate in neurologic )
Laboratory Results
-
05/19/25 15:13
05/19/25 15:
Laboratory Results
PT 13.7 Sec (11.4-14.6) 05/19/25 15:13
INR 1.02 05/19/25 15:
APTT 34.9 Sec (23.4-35.0) 05/19/25 15:
Lactic Acid 1.6 mmol/L (0.7-2.0) 05/19/25 16:00
Total Bilirubin 0.6 mg/dl (0.2-1.3) 05/19/25 15:
AST 38 U/L (14-36) H 05/19/25 15:
ALT 21 U/L (0-35) 05/19/25 15:
Alkaline Phosphatase 208 U/L (38-126) H 05/19/25 15:13
Abd/Pelvis CT:
Sacral decubitus ulceration. Soft tissue gas in the presacral soft tissues, inferior left pelvic sidewall, and about the left hip concerning for a necrotizing soft tissue infection. Developing soft tissue abscess superficial to the left ischial
tuberosity. Chronic osteomyelitis of the inferior sacrum and coccyx. Osteitis versus osteomyelitis of the left ischial tuberosity.
Data Reviewed
-
Lab Data: Labs Reviewed by me
Impression/Plan
-
Septic Shock secondary to Infected Sacral Decubitus Ulcer
-Admit to ICU with consult to Intensivists
-CT scan raises concerns for necrotizing soft tissue infection
-Surgery Consulted by ED
-Consult Wound Care
-Continue Vancomycin, Cefepime and Flagyl
-Continue Levophed for BP support
-Multiple family discussions by ED staff - Plan to current interventions until rest of family arrives tomorrow and can discuss situation with staff
Acute on Chronic Anemia
-Transfuse 2 units PRBCs
Hyponatremia, likely hypovolemic
-Continue IVFs
-Recheck labs in AM
Chronic Pain Syndrome
-Continue low dose morphine prn until able to resume usual pain regimen
Depression
-Hold oral meds for now
DVT proph: SCDs
[2025-05-19] MEDS: NSS 500 IV (18:30)
[2025-05-19] MEDS: MORPHINE SULFATE 1 MG IV (20:01)
[2025-05-19 20:48] LABS: Glucose - Point of Care 122 mg/dl (70-99)
--- NOTE | 2025-05-19 21:41 | PHA.VAN.IN ---
Assessment
- Assessment
Renal Function: SCR Appears Elevated from baseline (SCr 0.9, baseline 0.5-0.6)
Maximum Temperature: 98.6
Minimum Temperature: 96.6
Concomitant Antimicrobials: cefepime, metronidazole
Plan
- Plan
Initial / Loading Dose: 1000mg (22 mg/kg) 05/19 16:14
Maintenance Regimen: dose by level
Monitoring: R 05/20 am
Pharmacokinetics Vancomycin I
- -
Patient Age: 85
Patient Sex: Female
Vancomycin Day #: 1
Indication: Bone [facility]
Requesting Provider: SAAD Chacon
Pertinent Antimicrobial Allergies:
Penicillins Allergy (Verified 05/19/25 16:20)
Rash in her 30's
Height / Weight:
Height 5 ft 1 in
Actual Weight 45.8 kg
Pertinent Past Medical History: chronic sacral decubitus ulcers
- Vital Signs / Lab Results
Temp Pulse Resp BP Pulse Ox
96.6 F L 58 15 108/40 97
05/19/25 21:32 05/19/25 21:32 05/19/25 21:32 05/19/25 21:32 05/19/25 20:15
Lab Results - Hematology
05/19/25
15:13
WBC 29.4 H
Lab Results - Chemistry
05/19/25
15:13
BUN 43 H
Creatinine 0.9
Estimated Creat Clear 32
Albumin 2.6 L
05/19/25
16:00
Lactic Acid 1.6
[2025-05-19] MEDS: FLAGYL 500 MG 100 IV (22:22)
--- NOTE | 2025-05-19 22:31 | PTCARENOTE ---
5416-6030: Patient received in room 3363 lethargic and on Levophed at 4 mcg/min and PrBC. Opens her eyes to verbal commands. Groaning with movements. The patient is oriented to herself. Plan of care for the shift reviewed with the patient and her
daughter, Arlene. Patient transferred to the ICU bed. Sinus rosamaria -sinus rhythm on the monitor with HR 55-60. Doppler pulses to bilateral DP. Rectal temp 96.6 via rectal probe. Pt's SBP 191 and repeat SBP 184. Levophed placed on hold. 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
aware. Diminished breath sounds. SpO2 at 90% on RA. Patient place on 2L o2 nc. SaO2 improved to 96%. Patient is incontinent for dark stool. Heme test negative. Stage 4 sacral 3.5x3 cm wound with protruding coccyx. Purulent foul drainage from stage 4
wound. Wound cleansed with saline , saline soaked gauze placed and sacral foam applied. Patient cleansed with CHG wipes. Chronic nichole catheter is draining small amount of jere urine. Nichole care completed. Linens changed. Pneumatic compression
sleeves are in use. Bed alarm in use.
7464: Second unit PrBc transfusing.
[2025-05-20] VITALS (16 sets, daily range): BP systolic 96–145; BP diastolic 42–124; BMI 18.6
[2025-05-20] MEDS: MAXIPIME 1000 MG IV ×2 (00:12→08:38)
[2025-05-20] MEDS: STERILE WATER FOR INJECTION 10 ML IV ×2 (00:12→08:39)
--- NOTE | 2025-05-20 01:48 | PTCARENOTE ---
Patient reassessed. Arouses to verbal commands. SpO2 at 85% when nasal cannula falls off. 95% on 4L/o2 nc. Remains sinus rosamaria to sinus rhythm on the monitor. Levophed remains off. SBP > 120 at this time. Turns and repositioning continued.
[2025-05-20] MEDS: MORPHINE SULFATE 1 MG IV ×2 (02:59→08:53)
[2025-05-20 03:23] LABS: Hematocrit 34.6 % (37.0-47.0); Hemoglobin 11.9 g/dL (12.0-16.0); Mean Corp Hgb Conc. 34.4 g/dL (33.0-37.0); Mean Corpuscular Volume 84.0 fL (81.0-99.0); Platelet Count 408 10^3/uL (130-400); Red Cell Dist. Width 15.3 % (11.5-14.5)
[2025-05-20 03:49] LABS: ALT (SGPT) 23 U/L (0-35); AST (SGOT) 42 U/L (14-36); Albumin 2.7 g/dl (3.5-5.0); Alkaline Phosphatase 195 U/L (38-126); Blood Urea Nitrogen 41 mg/dl (7-17); Calcium 7.5 mg/dl (8.4-10.2); Carbon Dioxide 17 mmol/L (22-30); Chloride 105 mmol/L (98-107); Estimated Creatinine Clearance 36 ml/min; Glucose 89 mg/dl (70-99); Potassium 4.7 mmol/L (3.5-5.1); Sodium 130 mmol/L (135-145); Total Protein 5.3 g/dl (6.3-8.2); eGFR > 60.00
--- NOTE | 2025-05-20 04:46 | PTCARENOTE ---
Patient reassessed. Awake and oriented to self. PRN pain medication administered. Repositioning continued. Calcium gluconate ordered for Calcium of 7.5
[2025-05-20] MEDS: CALCIUM GLUCONATE 130 MG IV (05:07)
[2025-05-20 05:18] LABS: Magnesium 2.1 mg/dl (1.6-2.3)
[2025-05-20] MEDS: FLAGYL 500 MG 100 IV (06:45)
--- NOTE | 2025-05-20 06:59 | CON.INTV ---
Addendum entered and electronically signed by Mila Sandoval MD 05/20/25 12:31:
Patient transferred out of ICU
We will sign off. Please call with questions
Original Note:
Consultation
Consultation Request
Date/Time Consultation Requested: 05/20
Date/Time Consultation Performed: 05/20
Reason for Consultation: Critical care
Medical History
-
History of Present Illness:
History obtained from the patient and from reviewing the chart. Patient is pretty debilitated therefore able to give some history but not complete history. 85-year-old female with complex history including chronic Jaimes catheter, chronic pain
syndrome, history of colon cancer, chronic sacral decubitus who presents from the [facility] with foul drainage from the wound. She was found to be hypotensive requiring fluids. CT imaging revealed concerning necrotizing infection involving the
sacral wound. Upon arrival, afebrile, pulse 53, breathing 14, blood pressure 171/37, 97%. White count 29.4, lactate 1.6. She was admitted to ICU for septic shock. We are asked to comment on critical care management
Presently, her primary complaint is mouth pain, dry mouth. She also is admitting to hip pain but when asked which side, she is not clear
Presently she is on 2 L, 96%
.
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 History of
colon resection in the past
Past Medical History
Past Medical History: None (See above)
Past Surgical History: None (See above)
Social History
Tobacco: Non-smoker
Alcohol: Occasional
Drug: None
Personal: Single
Living: Skilled Nursing ([facility])
Employment: Not Employed
Family History
Family History: Reviewed & Not Pertinent
Allergies / Home Medications
Allergies
Allergy/AdvReac Type Severity Reaction Status Date / Time
spironolactone (From Allergy Severe Rash Verified 05/19/25 16:21
Aldactone)
Penicillins Allergy Rash in Verified 05/19/25 16:20
her 30's
Home Medications
�Medication �Instructions �Recorded �Confirmed �Last Taken �Type
therapeutic multivitamin 1 tab PO DAILY Supplement 06/21/24 05/19/25 05/19/25 10:30 History
Saccharomyces boulardii 250 mg 250 mg PO BID 02/16/25 05/19/25 05/19/25 10:30 History
capsule (Florastor)
ferrous sulfate 325 mg (65 mg 325 mg PO DAILY 02/16/25 05/19/25 05/19/25 10:30 History
iron) tablet
lidocaine 4 % topical patch 1 patch topical HS 02/16/25 05/19/25 05/18/25 History
(Lidocaine Pain Relief)
tizanidine 2 mg tablet 2 mg PO Q6HPRN PRN muscle spasm 02/16/25 05/19/25 05/19/25 11:00 History
tramadol 50 mg tablet 50 mg PO DAILY 02/16/25 05/19/25 05/18/25 History
acetaminophen 325 mg tablet 975 mg PO TID 05/19/25 05/19/25 05/19/25 10:30 History
diclofenac sodium 3 % topical gel 1 applic topical Q6HPRN PRN muscle 05/19/25 05/19/25 Unknown History
spasm
docusate sodium 100 mg capsule 100 mg PO DAILYPRN PRN constipation 05/19/25 05/19/25 Unknown History
(Colace)
escitalopram oxalate 10 mg tablet 10 mg PO DAILY 05/19/25 05/19/25 05/19/25 10:30 History
famotidine 20 mg tablet 20 mg PO DAILY 05/19/25 05/19/25 05/19/25 10:30 History
gabapentin 100 mg capsule 100 mg PO BID 05/19/25 05/19/25 05/19/25 10:30 History
guar gum 1 tbsp PO BID 05/19/25 05/19/25 05/19/25 10:30 History
lidocaine 4 % topical cream 1 applic topical BID 05/19/25 05/19/25 05/19/25 10:30 History
loperamide 2 mg capsule 4 mg PO Q6H PRN diarrhea 05/19/25 05/19/25 05/15/25 History
magnesium glycinate 200 mg PO HS 05/19/25 05/19/25 05/18/25 History
miconazole nitrate 2 % topical 1 applic topical BIDPRN PRN red 05/19/25 05/19/25 Unknown History
powder (Miconazorb AF) skin @ [facility] wound
oxycodone 5 mg tablet 5 mg PO Q6HPRN PRN severe pain 05/19/25 05/19/25 05/18/25 History
tizanidine 2 mg tablet 2 mg PO HS right leg cramping 05/19/25 05/19/25 05/18/25 History
tramadol 100 mg tablet,extended 100 mg PO HS 05/19/25 05/19/25 05/18/25 History
release 24 hr
tramadol 50 mg tablet 50 mg PO Q6HPRN PRN breakthrough 05/19/25 05/19/25 05/16/25 History
pain
zinc oxide 10 % topical cream 1 applic topical DAILYPRN PRN 05/19/25 05/19/25 05/18/25 History
incontinence
zinc oxide 10 % topical cream 1 applic topical QPM 05/19/25 05/19/25 05/18/25 History
Review of Systems
-
Unable to Obtain full review of systems at this time due to: Acuity
All other systems: Negative unless noted
Vitals / Labs / Diagnostic Testing
Vital Signs
Temp Pulse Resp BP Pulse Ox
99.4 F 65 18 117/64 94
05/20/25 03:24 05/20/25 01:09 05/20/25 01:09 05/20/25 01:09 05/19/25 22:58
Lab Data
05/20/25 03:12
05/20/25 03:12
Laboratory Results
05/19/25
15:13
PT 13.7
INR 1.02
APTT 34.9
Diagnostic Testing:
Physical Exam
-
HEENT: Normocephalic, Anicteric and Other (Dry mouth, old blood in the mouth, poor gums)
Cardiovascular: S1/S2, Regular Rhythm, Murmur (n), Rub (n) and Peripheral Edema (n)
Respiratory: Wheeze (n), Rales (n), Rhonchi (n) and Non-Labored Respirations
GI: Soft, Non Distended and Tender (Mild suprapubic tenderness, no rebound or guarding)
Neurology: Awake, Alert and No Motor Deficits (Generally weak)
Skin: Good Color (No rash) and Other (Stage IV sacral decubitus ulcer, draining per nursing)
General: Other (Complaining of pain)
Assessment
-
85-year-old female history of colon cancer with colon resection, chronic sacral wound with osteomyelitis dating as far back as 1 year ago, hypertension, history of heart failure, presents with hypotension, imaging suggestive of osteomyelitis
necrotizing infection. She was given antibiotics, fluids, required norepinephrine and admitted to ICU for further management
Septic shock, hypotension
Requiring pressors
Necrotizing soft tissue infection involving sacral wound
Lethargy/somnolence on presentation
Bradycardia
Leukocytosis
Anemia
Admission hemoglobin 7.2, status post 2 units of blood
Baseline 10.2
Hyponatremia/hypocalcemia
Left lower lobe nodular atelectasis
Cannot rule out pneumonia, per abdominal imaging (my review)
History of left pleural effusion with thoracentesis June 2024
Conditions present prior to admission
History of colon cancer with resection, chemotherapy
Radiation to the pelvic area, 2001
Last colonoscopy around 2019, negative per records
Moderate aortic regurgitation, PA pressure 37
Normal biventricular function per echo June 2024
Hypertension
GERD
Chronic anemia
Chronic pain syndrome on oxycodone/tramadol
Chronic sacral wound/osteomyelitis
Dating as far back as 2023
Scoliosis
DNR
Plan/recommendations
At this time, patient is critically ill requiring IV fluids, antibiotics, norepinephrine for septic shock
Presently she has been weaned off norepinephrine, +1. 1 L, urine output minimal with Jaimes catheter.
Low blood pressure 70/40, currently 110/70
Normal lactic acid
Moving forward
Continue with supportive care. She has received cefepime, vancomycin in the ED. These antibiotics continue
Currently receiving normal saline, 75 cc/hour
Marginal blood pressure noted, will continue with fluids for now, IV fluid boluses as able
Norepinephrine has been weaned off
85% on room air requiring 2 L overnight
Chest x-ray with scoliosis, no acute findings
Abdominal CT with left basilar nodular consolidation. History of left pleural effusion 1 year ago
Patient without any pulmonary symptoms
Mucous membranes extremely dry, suspect prerenal. Creatinine adequate
Jaimes catheter in place. Continue to follow urine output
Will give additional fluid bolus
Unfortunately, history of pelvic radiation 2001 now with chronic osteomyelitis in that region, makes surgical intervention difficult
Given age, comorbidities, hospice has been discussed
Await family arrival, defer discussion to primary service
Reviewed with critical care nursing
TCCT 35 min
--- NOTE | 2025-05-20 08:01 | W.PN.HOSP.TC ---
Today's Communication/Plan
-
see a/p
Assessment / Plan
Assessment / Plan
Physical Exam
General: Appears Chronically Ill, Frail, moderate severe distress due to pain
HEENT: Anicteric, Mucous Membranes dry
Respiratory: Clear and Non Labored Respirations
Cardiac: S1/S2, Regular Rate Rhythm
GI: Soft and Non Tender bowel sounds present
Musculoskeletal: No Clubbing and No Cyanosis
Skin: Warm and Dry
Neuro: AOx2 disoriented [address], some confusion noted
85F PA resident with hx chronic sacral decubitus ulcer, w associate osteomyelitis, for the past year, depression, chronic pain syndrome, chronic Jaimes, Hx Colon Ca treated with resection and pelvic radiation, presents with worsening pain and foul
drainage from her wound. Upon arrival to the emergency department patient was found to be hypotensive. CT scan revealed concern for necrotizing infection of the sacral wound. In septic shock, patient was started on abx, pressors, and admitted to
ICU overnight. Poor prognosis septic shock sacral wound infxn, frail, advanced age, high risk surgical intervention. Daughters TAMARA Jacobs and Carley noted poor quality life ongoing struggle with decubitus wound for the past year. Functionally
bedbound. Chronic Pain. Discussed the options of continuing with active treatment vs pursuing hospice comfort care. Ultimately daughters requested comfort care hospice. Patient herself confused, did not have capacity to make medical decisions at
this time, but appeared to be in agreement with her daughters' decisions. Care updated to comfort accordingly.
#Septic Shock 2/2 necrotizing sacral wound infxn
#Chronic Sacral Decubitus ulcer
#Chronic Pelvic Osteomyelitis
#Hx Colon Ca w/ resection and Pelvic radiation treatment
#Depression
#Chronic Pain Syndrome
#Chronic Jaimes
#Frailty
#Functionally bedbound
transferred to med/surg private room
Hospice Eval requested. Suspect patient may be GIP hospice appropriate tomorrow Mon if remains stable and is not imminent.
Dilaudid prn pain, advance to gtt if necessary per protocol
po ativan prn anxiety, prn IV Valium if unable to tolerate PO (IV ativan shortage)
comfort feed
Discussed with patient and patient's daughters Sanjeev Howe and Arlene
I spent a total of 60 minutes with the patient or on the floor. More than 50% of this time involved counseling and coordination of care.
Anticipated Discharge: 24 - 48 hours
Subjective/Interval History
-
Date of Service: May 20, 2025
Patient alert conversant to an extent (limited by pain, hard of hearing, confusion) disoriented to place. Daughters Arlene and Carley present during evaluation.
Objective Data
-
Labs:
Laboratory Results
05/20/25
03:12
WBC 29.6 H
Hgb 11.9 L D
Hct 34.6 L
Plt Count 408 H
Sodium 130 L
Potassium 4.7
Chloride 105
Carbon Dioxide 17 L
BUN 41 H
Creatinine 0.8
Glucose 89
Calcium 7.5 L
Total Bilirubin 1.2
AST 42 H
ALT 23
Alkaline Phosphatase 195 H
Vital Signs:
Vital Signs
Temp Pulse Resp BP Pulse Ox
99.4 F 65 18 117/64 94
05/20/25 03:24 05/20/25 01:09 05/20/25 01:09 05/20/25 01:09 05/19/25 22:58
I&O
05/19/25 05/20/25 05/21/25
06:59 06:59 06:59
Intake Total 1505 / 1505
Output Total 100 / 100
Balance 1405 / 1405
[2025-05-20] MEDS: LR 500 IV (08:39)
[2025-05-20] MEDS: TYLENOL 650 MG PO (08:53)
--- NOTE | 2025-05-20 09:23 | PHA.VAN.FU ---
Vancomycin Assessment / Plan
- Assessment
Renal Function: Stable
WBC's are: Trending Up
In the past 24 hrs, patient has been: Afebrile
Concomitant Antimicrobials: metronidazole, cefepime
- Assessment - Therapeutic Drug Monitoring
Random Level: R=10.3 on 05.20 @ 0312
- Dosing Plan
Adjust Regimen to: vancomycin 500 mg Q24H
New Regimen Predicts: AUC (475), Peak (28.6), Trough (13)
Dosing Comments: t1/2= 20.2
- Monitoring Plan
No level(s) ordered at this time: consider levels in next few days
MRSA Screen: Ordered per protocol
- Follow Up
Pharmacy will continue to follow.
Vancomycin Follow UP
- -
Patient Age: 85
Patient Sex: Female
Vancomycin Day #: 2
Indication: [facility]
Requesting Provider: SAAD Chacon
Pertinent Antimicrobial Allergies:
Penicillins Allergy (Verified 05/19/25 16:20)
Rash in her 30's
Height / Weight:
Height 5 ft 1 in
Actual Weight 44.6 kg
Pertinent Past Medical History: chronic sacral decubitus ulcers
- Vital Signs / Lab Results
Temp Pulse Resp BP Pulse Ox
99.4 F 65 18 117/64 94
05/20/25 08:15 05/20/25 01:09 05/20/25 01:09 05/20/25 01:09 05/19/25 22:58
Lab Results - Hematology
05/19/25 05/20/25
15: 03:12
WBC 29.4 H 29.6 H
Lab Results - Chemistry
05/19/25 05/20/25
15:13 03:12
BUN 43 H 41 H
Creatinine 0.9 0.8
Estimated Creat Clear 32 36
Albumin 2.6 L 2.7 L
05/19/25
16:00
Lactic Acid 1.6
Therapeutic Drug Monitoring
Random Vancomycin 10.3 ug/ml 05/20/25 03:12
[2025-05-20] MEDS: DILAUDID 0.25 MG IV ×5 (10:02→21:49)
--- NOTE | 2025-05-20 10:21 | W.PN.UPDATE ---
Update Note
Progress Note Update
poor prognosis septic shock sacral wound infxn, frail, advanced age, high risk surgical intervention. Daughters TAMARA Jacobs and Carley notes poor quality life ongoing struggle with decubitus wound for the past year. Functionally bedbound. Chronic
Pain. Discussed the options of continuing with active treatment vs pursuing hospice comfort care. Ultimately daughters requested comfort care hospice. Patient herself confused, does not appear to have capacity to make medical decisions at this
time, but appears to be in agreement with her daughters' decisions. Care updated to comfort accordingly and request for med/surg bed placed. Hospice Eval requested. Suspect patient may be GIP hospice tomorrow if remains stable and is not imminent
then.
[2025-05-20] MEDS: VANCOCIN HCL 500 MG 100 IV (10:52)
--- NOTE | 2025-05-20 11:00 | PTCARENOTE ---
"pt drowsy , agitated at change of shift , compiling of whole body pain , pt medicated with morphine and Tylenol both not effective for pain , both daughters in room ,, requesting to speak to hospitalist regarding pain control and goals of care , "Quincy"Nasreen spoke to family and decision was to make patient comfort care , pt was given 0.25 mg IV Diludid which did give some pain relief , pastoral care was notifed for family support "
--- NOTE | 2025-05-20 11:34 | CM ---
Consult received for hospice care. Dr. Downey anticipates GIP; referral sent to Hospice for evaluation.
--- NOTE | 2025-05-20 13:45 | HOSPNOTE ---
Received referral dicussion with Lillie Martin NP - our assistant controller Hospice provider, as per note from Dr Downey we will plan on admission tomorrow if GIP appropriate. Will continue to follow
[2025-05-20] MEDS: ATIVAN 0.5 MG PO (15:28)
--- NOTE | 2025-05-20 16:06 | CHAP ---
Asked by nurse to visit - no family was present at the time. Offered prayers and brought a prayer blanket in her favorite color. Emotional and spiritual support provided.
--- NOTE | 2025-05-20 16:08 | PTCARENOTE ---
pt transferred to to 2125. sheets changed, pt tearful with turns. Soft moderate black stool noted and fluids paused. IV site infiltrated, RUE +3 pitting. made aware. new foam applied to sacral wound. serosanguineous drainage noted.
[2025-05-20] MEDS: NSS IV (16:14)
--- NOTE | 2025-05-20 16:14 | PTCARENOTE ---
pt sent to room 2125 , report given to receiving RN , pt family at bedside with transfer , medicated appropriately for pain with transfer
--- NOTE | 2025-05-20 16:59 | PTCARENOTE ---
prn dilaudid given for severe pain communicated by patient. given through new L forearm site. see MAR for proper documentation
[2025-05-20] MEDS: VALIUM INJECTION 2 MG IV (22:24)
[2025-05-21] MEDS: DILAUDID 0.25 MG IV ×5 (03:44→12:02)
[2025-05-21] MEDS: ATIVAN 0.5 MG PO (04:12)
[2025-05-21 07:00] VITALS: BP 147/60
[2025-05-21 10:06] VITALS: BMI 18.6
--- NOTE | 2025-05-21 11:53 | WOUNDNOTE ---
HÉCTOR RN NOTE: Nurse reports patient made hospice, recommended silicone foam to sacral wound and will cancel consult unless needed.
[2025-05-21] MEDS: ATIVAN 2 MG IV (12:02)
--- NOTE | 2025-05-21 12:22 | HOSPNOTE ---
Hospice following. Evaluated and patient meets inpatient criteria for the management of pain that could not be managed in the outpatient setting. Patient has needed 3 doses of iv dilaudid and will be initiated on a dilaudid drip. Awaiting daughter
return with social security number, then will proceed with notifying admissions and flipping to inpatient hospice. Primary RN and Attending aware and in agreement.
--- NOTE | 2025-05-21 13:38 | W.DCSUMMARY ---
Addendum entered and electronically signed by Krishan Robert MD 05/21/25 13:45:
no meds or instruction at discharge since transferring to inpatient hospice status
Original Note:
Discharge Summary
Discharge Data
Date of Admission: 05/19/25
Date of Discharge: 05/21/25
-
Pending Results: No
Hospital Course
85 y/o female past medical history of a chronic sacral decubitus ulcer, depression and chronic pain who presents with worsening pain and foul drainage from her wound on 05/19. Family opted for comfort measures on 05/20 and on 05/21, patient was
transitioned to inpatient hospice after discussion with family.
Discharge Plan
-
Patient Disposition: Hospice - Inpatient DH
Discharge Orders:
Discharge Patient (As Directed); Ordered 05/21/25
Ordered By: Krishan Robert
Discharge Date and Time
Print Language: AMHARIC
--- NOTE | 2025-05-21 14:24 | CM ---
CM following re: discharge planning.
Reviewed pt's chart, met with pt and daughter at bedside.
Per engineering production liaison, pt is accepted for inpatient hospice with hospice GIP.
CM is available for emotional support.
== END 2025-05-21 14:20 | disposition hospice, inpatient (51) | DRG 871 ==
LOC: 2 NORTH 18:47
PROVIDERS: Nurse Practitioner Primary Care; Physician Assistant; Physician Assistant Medical; ADMITTING PHYSICIAN Internal Medicine; ATTENDING PHYSICIAN Internal Medicine; CONSULT PHYSICIAN Internal Medicine Critical Care Medicine; EMERGENCY PHYSICIAN Emergency Medicine; FAMILY PHYSICIAN Internal Medicine
PROC: 30233N1 Transfusion of Nonautologous Red Blood Cells into Peripheral Vein, Percutaneous Approach (ICD-10-PCS; 2025-05-19)
DX: A41.9 Sepsis, unspecified organism (principal); L89.154 Pressure ulcer of sacral region, stage 4; R65.21 Severe sepsis with septic shock; E87.1 Hypo-osmolality and hyponatremia; I96 Gangrene, not elsewhere classified; M46.28 Osteomyelitis of vertebra, sacral and sacrococcygeal region; D62 Acute posthemorrhagic anemia; J98.11 Atelectasis; Z51.5 Encounter for palliative care; I25.10 Atherosclerotic heart disease of native coronary artery without angina pectoris; I11.0 Hypertensive heart disease with heart failure; I50.9 Heart failure, unspecified; R53.81 Other malaise; E78.00 Pure hypercholesterolemia, unspecified; I35.1 Nonrheumatic aortic (valve) insufficiency; F32.A Depression, unspecified; R32 Unspecified urinary incontinence; K21.9 Gastro-esophageal reflux disease without esophagitis; G89.29 Other chronic pain; H91.90 Unspecified hearing loss, unspecified ear; R41.0 Disorientation, unspecified; G89.4 Chronic pain syndrome; Z66 Do not resuscitate; Z85.038 Personal history of other malignant neoplasm of large intestine; Z88.0 Allergy status to penicillin; Z88.8 Allergy status to other drugs, medicaments and biological substances; Z90.49 Acquired absence of other specified parts of digestive tract; Z92.3 Personal history of irradiation; Z74.01 Bed confinement status
CPT/HCPCS: 36430; 71045; 74177; 80053; 80202; 82962; 83605; 83735; 84100; 85025; 85027; 85610; 85730; 86850; 86900; 86901; 86920; 87040; 87070; 87077; 87154; 87186; 87205; 93005; 96365; 96366; 96367; 96375; 99285; P9016; Q9967

== ENCOUNTER 2025-05-21 14:22 | Inpatient (IN) | payer OTHER, SELFPAY ==
[2025-05-21 07:00] VITALS: BP 147/60
--- NOTE | 2025-05-21 13:40 | ADM.HSP ---
Admission - Hospice
History of Present Illness
85 y/o female past medical history of a chronic sacral decubitus ulcer, depression and chronic pain who presents with worsening pain and foul drainage from her wound on 05/19. Family opted for comfort measures on 05/20 and on 05/21, patient was
transitioned to inpatient hospice after discussion with family.
Reason for Hospice Admission
intractable pain, wound infection
Review of Systems
Unable to obtain full review of systems at this time due to: Acuity
Physical Exam
General: Appears in Distress and Pain
Respiratory: Clear to Auscultation and Wheezes
Cardiology: Regular Rhythm and S1/S2
GI: Soft
Neuro: Sedated
Psych: Calm
Assessment/Medication Plan
Assessment:
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
Chronic Sacral Decubitus ulcer
Chronic Pelvic Osteomyelitis
Hx Colon Ca w/ resection and Pelvic radiation treatment
Depression
Chronic Pain Syndrome
Chronic Jaimes
Frailty
Functionally bedbound
Plan:
Inpatient hospice with Dilaudid prn and drip
d/w hospice/RN/Family
Data Reviewed
Labs: Labs Reviewed by me
[2025-05-21] MEDS: DILAUDID 0.5 MG IV (17:28)
[2025-05-21] MEDS: DILAUDID 50 IV (17:46)
[2025-05-21 18:29] VITALS: BMI 18.6
--- NOTE | 2025-05-21 18:58 | HOSPNOTE ---
Patient admitted inpatient level of hospice care for the management of pain and anxiety that could not be managed in the outpatient setting. Patient is now on a dilaudid drip. Hospice will visit daily.
[2025-05-21 19:00] VITALS: BP 123/57
[2025-05-21] MEDS: DILAUDID 0.25 MG IV (22:52)
[2025-05-22] MEDS: DILAUDID 0.25 MG IV ×3 (02:19→17:08)
[2025-05-22 11:26] VITALS: BP 128/47
--- NOTE | 2025-05-22 11:54 | W.PN.HOSP.TC ---
Today's Communication/Plan
-
maximize comfort
Assessment / Plan
Assessment / Plan
Assessment:
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
Chronic Sacral Decubitus ulcer
Chronic Pelvic Osteomyelitis
Hx Colon Ca w/ resection and Pelvic radiation treatment
Depression
Chronic Pain Syndrome
Chronic Jaimes
Frailty
Functionally bedbound
Plan:
Inpatient hospice with Dilaudid prn and drip
d/w hospice/RN/Family
Anticipated Discharge: 24 - 48 hours
Subjective/Interval History
-
Date of Service: May 22, 2025
in Dilaudid drip
resting comfortably at present
Objective Data
-
Vital Signs:
Vital Signs
Temp Pulse Resp BP Pulse Ox
99.3 F 94 10 128/47 92
05/22/25 11:26 05/22/25 11:26 05/22/25 11:26 05/22/25 11:26 05/22/25 11:26
I&O
05/21/25 05/22/25 05/23/25
06:59 06:59 06:59
Intake Total 0 / 0
Output Total 550 / 550
Balance -550 / -550
Physical Exam
-
General: Comfortable
HEENT: Normocephalic and Atraumatic
Respiratory: Accessory Resp Muscle Use (mild) and Decreased Breath Sounds
Cardiac: Regular Rhythm and S1/S2
Neuro: Sedated
Data Reviewed
-
Total Time Spent with Patient (in minutes): 41
Labs: Labs Reviewed by me
--- NOTE | 2025-05-22 12:30 | HOSPNOTE ---
Mindy was sleeping fairly comfortably, minimally responsive. Daughters Arlene and Carley were present. They shared background about their mother, who has Anabaptist jessie. Her decline has been rapid, they said, and they are not sure, but hope that she
is at peace. She is a beloved mother and grandmother. Microfilm Operator provided emotional and spiritual support through presence, dialogue, and prayer. Will continue support through visits 2x week.
--- NOTE | 2025-05-22 14:16 | CM ---
CM following re: discharge planing.
Pt is under care of inpatient hospice GIP.
CM is available for emotional support.
[2025-05-22] MEDS: ROBINUL 0.2 MG IV (16:03)
--- NOTE | 2025-05-22 18:26 | HOSPNOTE ---
Patient is inpatient hospice for the management of pain, dyspnea and secretions that could not be managed in the outpatient setting. Patient showed a flacc score of 7, severe pain. Dilaudid drip infusing at 0.3mg/hr and 1 breakthrough dose given.
Patient also with excessive secretions, iv robinul given. Daughter Arlene at bedside. Emotional support provided. Reviewed patient is actively dying and limited life expectancy. She is aware and is coping appropriately. Informal report with RN Hieu,
agreeable with plan of care. Hospice will visit daily.
[2025-05-22 19:00] VITALS: BP 136/65
[2025-05-23] MEDS: DILAUDID 0.25 MG IV ×2 (04:44→06:41)
--- NOTE | 2025-05-23 08:27 | HOSPNOTE ---
Guide Dog Trainer visited 85 year old patient to conduct Initial INTERMEDIATE CARD TENDER Assessment. Patient recently admitted onto Hospice Services and [facility] Level of Care with the Primary Diagnosis of Sepsis. INTERMEDIATE CARD TENDER greeted patient's daughters Arlene and Carley are both
were present at patient's bedside upon arrival. INTERMEDIATE CARD TENDER introduced herself and explain the role of Scrubbing Machine Operator as it relates to the Hospice Team. Patient lying in bed asleep and appeared to be resting comfortably, no signs of pain and/or distress
observed. Arlene reported patient is fine as long as she's not being moved. She reported patient moans and grimace as if she's in pain when being changed. Carley reported patient doesn't like to be agitated and right now she seems peaceful. Patient has
2 daughters Arlene and Carley and 2 grandchildren. Arlene and Carley are patient's POA. Arlene and Carley reported they are each other supports and are coping appropriately. 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 She 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 Carley reported patient was active and engaged in
grandchildren activities. Patient is Non-Evangelical and affiliated with [employer]. Patient wishes are to be cremated and the family is utilizing [facility] in [place] for arrangements. Family declined Bereavement
Services at this time. Prayer and Emotional Support Provided
Patient meets [facility] criteria for SN assessments, management of pain, dyspnea. and secretions that could not be managed at home and/or in an Outpatient setting. Discharge planning continues.
INTERMEDIATE CARD TENDER will conduct visits once a week while on [facility] Level of Care to provide supportive services and monitor for additional services.
--- NOTE | 2025-05-23 09:15 | PTCARENOTE ---
Family at bedside refusing for patient to be turned and to receive prn pain medication. Patient intermittently grimacing and tense. Family educated on nonverbal pain scale and pain management protocol.
[2025-05-23 11:00] VITALS: BP 178/93
--- NOTE | 2025-05-23 11:15 | W.PN.HOSP.TC ---
Today's Communication/Plan
-
maximize comfort
Assessment / Plan
Assessment / Plan
Assessment:
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
Chronic Sacral Decubitus ulcer
Chronic Pelvic Osteomyelitis
Hx Colon Ca w/ resection and Pelvic radiation treatment
Depression
Chronic Pain Syndrome
Chronic Jaimes
Frailty
Functionally bedbound
Plan:
Inpatient hospice with Dilaudid prn and drip; increase to step 2 today
d/w hospice/RN/Family
Anticipated Discharge: 24 - 48 hours
Subjective/Interval History
-
Date of Service: May 23, 2025
periods of discomfort related to turning/vitals check per reports from daughters in Room
Objective Data
-
Vital Signs:
Vital Signs
Temp Pulse Resp BP Pulse Ox
96.9 F L 106 14 136/65 94
05/22/25 19:00 05/22/25 19:00 05/22/25 19:00 05/22/25 19:00 05/22/25 19:00
I&O
05/22/25 05/23/25 05/24/25
06:59 06:59 06:59
Intake Total 0 / 0
Output Total 550 / 550 500 / 500
Balance -550 / -550 -500 / -500
Physical Exam
-
General: Comfortable
HEENT: Normocephalic
Respiratory: Accessory Resp Muscle Use and Decreased Breath Sounds
Cardiac: Regular Rhythm, S1/S2 and Tachycardic
Neuro: Sedated
Data Reviewed
-
Total Time Spent with Patient (in minutes): 41
Labs: Labs Reviewed by me
[2025-05-23] MEDS: DILAUDID 0.5 MG IV ×2 (12:01→12:36)
[2025-05-23] MEDS: ROBINUL 0.2 MG IV (12:36)
[2025-05-23] MEDS: DILAUDID 50 IV (15:31)
--- NOTE | 2025-05-23 18:15 | HOSPNOTE ---
Patient is inpatient hospice for the management of pain, dyspnea and secretions that could not be managed in the outpatient setting. Patient showed a flacc score of 7, severe pain. Dilaudid drip infusing at 0.5mg/hr and 2 breakthrough dose given of
0.5mg today Patient also with excessive secretions, iv robinul given. Daughters Arlene and Carley at bedside. Emotional support provided. Reviewed patient is actively dying and limited life expectancy. They are aware and are coping appropriately.
Informal report with RN Hieu, agreeable with plan of care. Family didn't allow for care/turning and medication administration overnight/this morning. Reviewed that our goal is for patient to be comfortable and to pass peacefully. They verbalize
understanding and are more open to us. Hospice will visit daily.
[2025-05-23 19:00] VITALS: BP 137/71
[2025-05-24] MEDS: DILAUDID 0.5 MG IV ×2 (00:23→04:53)
--- NOTE | 2025-05-24 06:56 | W.PN.DEATH ---
Addendum entered and electronically signed by Krishan Robert MD 05/24/25 08:32:
cause of : Septic Shock from necrotizing sacral wound infection
Original Note:
Pronouncement of
-
Called to see patient to pronounce.
No spontaneous heart tones or respirations noted.
Patient not responsive to verbal stimuli.
Patient is pronounced .\\
Family at the bed side
Time of : 06:25
Date of : 05/24/25
Family Notified: Yes
--- NOTE | 2025-05-24 08:19 | W.DCSUMMARY ---
Discharge Summary
Discharge Data
Date of Admission: 05/21/25
Date of Discharge: 05/24/25
-
Pending Results: No
Hospital Course
85 y/o female with a past medical history of a chronic sacral decubitus ulcer, depression and chronic pain who was admitted 05/19 to 05/21 with worsening pain and foul drainage from her wound. Family opted for comfort measures on 05/20 and on 05/21,
patient was transitioned to inpatient hospice after discussion with family. She was initiated on Dilaudid infusion with breakthrough dosing. She passed peacefully on 05/24 at 6:25 AM. All related paperwork was complete and family was notified
at the time of passing.
Final Problem List:
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
Chronic Sacral Decubitus ulcer
Chronic Pelvic Osteomyelitis
Hx Colon Ca w/ resection and Pelvic radiation treatment
Depression
Chronic Pain Syndrome
Chronic Ajimes
Frailty
Functionally bedbound
Discharge Plan
-
Patient Disposition:
Referrals:
UNKNOWN - PT DOES,NOT KNOW [Family Provider]
Prescriptions:
No Action
therapeutic multivitamin Tablet
1 tab PO DAILY
lidocaine [Lidocaine Pain Relief] 4 % Adhesive Patch,Medicated
1 patch TOPICAL HS
Rx Instructions:
apply to right thigh at bedtime, remove after 12 hrs
tizanidine 2 mg Tablet
2 mg PO Q6HPRN PRN (Reason: muscle spasm)
tramadol 50 mg Tablet
50 mg PO DAILY
ferrous sulfate 325 mg (65 mg iron) Tablet
325 mg PO DAILY
Saccharomyces boulardii [Florastor] 250 mg Capsule
250 mg PO BID
acetaminophen 325 mg Tablet
975 mg PO TID
lidocaine 4 % Cream
1 applic TOPICAL BID
Rx Instructions:
apply to right hip/back
Benefiber (guar gum) Packet
1 tbsp PO BID
famotidine 20 mg tablet
20 mg PO DAILY
gabapentin 100 mg capsule
100 mg PO BID
escitalopram oxalate 10 mg tablet
10 mg PO DAILY
magnesium glycinate 100 mg magnesium Capsule
200 mg PO HS
diclofenac sodium 3 % Gel
1 applic TOPICAL Q6HPRN PRN (Reason: muscle spasm)
tizanidine 2 mg tablet
2 mg PO HS
loperamide 2 mg Capsule
4 mg PO Q6H PRN (Reason: diarrhea)
tramadol 50 mg tablet
50 mg PO Q6HPRN PRN (Reason: breakthrough pain)
docusate sodium [Colace] 100 mg Capsule
100 mg PO DAILYPRN PRN (Reason: constipation)
oxycodone 5 mg tablet
5 mg PO Q6HPRN PRN (Reason: severe pain)
zinc oxide 10 % Cream
1 applic TOPICAL QPM
Rx Instructions:
apply to kishan wound
zinc oxide 10 % Cream
1 applic TOPICAL DAILYPRN PRN (Reason: incontinence)
Rx Instructions:
apply to b/l buttocks
miconazole nitrate [Miconazorb AF] 2 % powder
1 applic topical BIDPRN PRN (Reason: red skin @ kishan wound)
tramadol 100 mg tablet extended release 24 hr
100 mg PO HS
Discharge Date and Time
Print Language: KAZAKH
--- NOTE | 2025-05-24 11:03 | CM ---
CM following re: discharge planing.
Pt continue care with inpatient hospice GIP.
CM is available for emotional support.
== END 2025-05-24 06:25 | disposition expired | DRG 951 ==
LOC: 2 NORTH 14:22
PROVIDERS: ADMITTING PHYSICIAN Internal Medicine
DX: Z51.5 Encounter for palliative care (principal); A41.9 Sepsis, unspecified organism; R65.21 Severe sepsis with septic shock; I96 Gangrene, not elsewhere classified; M86.68 Other chronic osteomyelitis, other site; L89.159 Pressure ulcer of sacral region, unspecified stage; F32.A Depression, unspecified; G89.4 Chronic pain syndrome; R54 Age-related physical debility; Z74.01 Bed confinement status; Z85.038 Personal history of other malignant neoplasm of large intestine; Z92.3 Personal history of irradiation; Z90.49 Acquired absence of other specified parts of digestive tract